=== PATIENT | male | born 1945 | race Caucasian/White ===

== ENCOUNTER → 2022-09-15 09:42 | Outpatient (CLI) | payer MEDICARE, OTHER, SELFPAY ==
[2022-09-15 10:35] LABS: Hematocrit 38.7 % (41-53); Hemoglobin 13.2 g/dL (13.5-17.5); Mean Corpuscular HGB Conc 34.2 % (30-36); Mean Corpuscular Hemoglobin 33.9 PG (26-34); Mean Corpuscular Volume 99.2 fL (80-100); Platelet Count 144 X10^3/uL (150-400); Red Blood Cell Count 3.91 X10^6/uL (4.5-5.9); Red Cell Distribution Width 15.4 % (11.6-14.8)
[2022-09-15 10:54] LABS: BUN Creatinine Ratio 10.6 (6-22); Blood Urea Nitrogen 17 mg/dL (9-20); Calcium 8.9 mg/dL (8.4-10.2); Carbon Dioxide 26 mmol/L (22-32); Chloride 106 mmol/L (98-107); Estimated Glomerular Filt Rate 44 mL/min (>60); Glucose 96 mg/dL (80-110); HEMOLYSIS < 15 (0-50); Potassium 4.5 mmol/L (3.4-5.1); Sodium 137 mmol/L (137-145)
[2022-09-15 13:43] LABS: Prostate Specific Antigen < 0.064 ng/mL (0.10-4.00)
== END ==
PROVIDERS: PCP Pediatrics; Referring Provider Urology; Visit Provider Urology
DX: C61 Malignant neoplasm of prostate (principal); D47.2 Monoclonal gammopathy; N99.89 Other postprocedural complications and disorders of genitourinary system; N39.3 Stress incontinence (female) (male); Z85.528 Personal history of other malignant neoplasm of kidney
CPT/HCPCS: 36415; 51798; 80048; 81002; 84153; 85027; 99214

== ENCOUNTER → 2022-09-25 06:34 | Outpatient (CLI) | payer MEDICARE, OTHER, SELFPAY ==
--- NOTE | 2022-09-25 06:35 | DI.ECHO.S_ITS ---
[facility] +---------+ : : [address] : : : : [id number] : : : : Phone: [phone]---------+ Echocardiogram Report + + :Name: MARKUS SAUCEDO Study Date: 09/25/2022 Height: 72 in : :[facility] ReadingLocation: Weight: 215 lb : : Gender: Male BSA: 2.2 m2 : :: 1945 Age: 77 yrs BP: 136/79 mmHg: :Reason For Study: FATIGUE, MURMUR : :Ordering Physician: CARLOS, : :PJ Dawson MD Performed By: Nancy Navarro : :Referring: PJ GONZALEZ MD : + + Interpretation Summary The patient was in sinus bradycardia with heart rates between 40-48 bpm during the exam. Normal left ventricle size with ejection fraction 60-65%. Moderate aortic stenosis. The peak aortic velocity is 3.06 m/sec. Mild aortic regurgitation. Mild to moderate mitral annular calcification. Mild tricuspid regurgitation. The right ventricular systolic pressure is estimated to be at least 41 mmHg based on an estimated right atrial pressure of 3 mm Hg. Procedure: A two-dimensional transthoracic echocardiogram with color flow and Doppler was performed. The study quality was technically adequate. There is no prior echocardiogram noted for this patient. The patient was in sinus bradycardia with heart rates between 40-48 bpm during the exam. Left Ventricle: The left ventricle is normal in size and wall thickness. The ejection fraction is estimated to be 60-65%. There are no focal wall motion abnormalities. Right Ventricle: The right ventricle is normal in size and function. Atria: Borderline left atrial enlargement. Right atrial size is normal. There is no Doppler evidence for an interatrial shunt. Mitral Valve: There is mild to moderate mitral annular calcification. The mitral valve leaflets appear mildly thickened, but open well. There is trace mitral regurgitation. Aortic Valve: The aortic valve is moderately calcified. There is moderate aortic stenosis. The peak aortic velocity is 3.06 m/sec. The aortic valve mean gradient is 21 mmHg. The calculated aortic valve area is 0.9 cm2. There is mild aortic regurgitation. Tricuspid Valve: The tricuspid valve is normal in structure and function. There is mild tricuspid regurgitation. The right ventricular systolic pressure is estimated to be at least 41 mmHg based on an estimated right atrial pressure of 3 mm Hg. Pulmonic Valve: The pulmonic valve leaflets are thin and pliable; valve motion is normal. There is trace pulmonic regurgitation. Great Vessels: The aortic root is normal size. The dimensions of the ascending aorta are normal. The IVC is of normal diameter and collapses greater than 50% with a sniff. This suggests a low right atrial pressure of 3 mm Hg. Pericardium/ Pleura There is no pericardial effusion. There is no pleural effusion. MMode/2D Measurements & Calculations LVIDd: 5.7 cm LVOT diam: 2.1 cm LVIDs: 3.8 cm Ao root diam: 3.3 cm FS: 32.9 % asc Aorta Diam: 3.3 cm EPSS: 0.89 cm Ao Arch Diam (Prox Trans): 3.1 cm IVSd: 0.85 cm LVPWd: 0.89 cm LV torre. diameter/BSA (cm/m^2): 2.6 LV sys. diameter/BSA (cm/m^2): 1.7 LA A2 area: 22.6 cm2 RA long axis: 6.0 cm LA A4 area: 27.8 cm2 RA area: 21.7 cm2 LA length (vol): 7.2 cm RA vol: 66.7 ml LA vol: 73.6 ml RA : 30.4 ml/m2 LA vol index: 33.5 ml/m2 IVC diam: 1.4 cm RVD1 (basal): 4.6 cm RVD2 (mid): 3.1 cm TAPSE: 2.0 cm Doppler Measurements & Calculations Ao V2 max: 306.6 cm/sec LVOT Max Amado: 82.2 cm/sec Ao V2 mean: 201.1 cm/sec LV V1 max P.7 mmHg Ao max P.7 mmHg LV V1 VTI: 21.0 cm Ao mean P.8 mmHg GERTRUDIS(I,D): 0.99 cm2 Ao V2 VTI: 71.3 cm GERTRUDIS(V,D): 0.90 cm2 sev ratio: 0.30 GERTRUDIS indexed to BSA (cm^2/m^2): 0.45 MV E max amado: 45.7 cm/sec TR max amado: 309.0 cm/sec MV A max amado: 32.6 cm/sec TR max P.2 mmHg MV E/A: 1.4 PA V2 max: 92.7 cm/sec Med Peak E' Amado: 8.9 cm/sec PA V2 mean: 62.2 cm/sec E/E' med: 5.1 PA mean P.7 mmHg Lat Peak E' Amado: 8.7 cm/sec PA pr(Accel): 41.3 mmHg E/E' lat: 5.2 E/e' average: 5.2 MV dec time: 0.24 sec SV(LVOT): 70.2 ml Electronically signed by: Bhavesh Ramos on Reading Physician:09/25/2022 09:22 AM
--- NOTE | 2022-09-25 06:35 | DI.CT.S_ITS ---
PROCEDURE: CT ABDOMEN PELVIS WO/W CON INDICATIONS: History of prostate cancer and ureteral fistula TECHNIQUE: After the administration of oral contrast, 5 mm thick sections acquired from the diaphragms to the iliac crests. After the administration of intravenous contrast, 5 mm thick sections acquired from the diaphragms to the symphysis. 5 mm thick coronal and sagittal reformats were acquired. For radiation dose reduction, the following was used: automated exposure control, adjustment of mA and/or kV according to patient size. COMPARISON: None. FINDINGS: Image quality: Good Lower chest: Scattered scarring and atelectasis. More nodular areas are present, for example in the right periphery (4/14), and lingula (4/20). Solid organs: Cholelithiasis. Irregular liver contour. No pathologic dilation of the biliary tree or pancreatic duct. Splenic granulomas. No adrenal nodules. No hydronephrosis bilaterally. Right renal scarring, particularly with a focal area in the posterior kidney with calcifications and central fat attenuation. Left parapelvic cysts are present. No solid renal mass is identified. No definite ureter filling defect. Vessels and lymph nodes: Main portal vein is patent. No abdominal aortic aneurysm or pathologic lymph nodes by size criteria. Suspected portal venous varices are present. There are prominent upper abdominal lymph nodes, commonly seen as a reactive process to chronic liver disease. Bowel and peritoneum: No pathologic ascites or bowel obstruction. Body wall: Tiny fat containing umbilical hernia. Pelvis: Suspected small right inguinal hernia with fluid. Bladder is under distended. Prostatectomy changes. Bones: Degenerative changes, no acute or suspicious finding rib deformities do not appear acute. IMPRESSION: No solid renal mass is identified. Scarred appearance of the right kidney, particularly in a focal area in the posterior region with adjacent calcifications and suspected fat necrosis. Consider follow-up CT in 6-12 months to ensure stability. Lower tract disease could be better evaluated with cystoscopy if indicated. Post prostatectomy changes, consider correlation with PSA surveillance. Irregular liver contour, suggestive of cirrhosis. Recommend HCC screening imaging. Cholelithiasis. Other findings as above. Dictated by: Nemesio Ruff M.D. on 09/25/2022 at 10:32 Approved by: Nemesio Ruff M.D. on 09/25/2022 at 10:39
== END ==
PROVIDERS: PCP Pediatrics; Referring Provider Urology; Visit Provider Urology
DX: C61 Malignant neoplasm of prostate (principal); I08.3 Combined rheumatic disorders of mitral, aortic and tricuspid valves; N28.1 Cyst of kidney, acquired; N28.89 Other specified disorders of kidney and ureter; R53.83 Other fatigue; R01.1 Cardiac murmur, unspecified; K80.20 Calculus of gallbladder without cholecystitis without obstruction; Z85.528 Personal history of other malignant neoplasm of kidney
CPT/HCPCS: 74178; 93306; Q9967

== ENCOUNTER → 2022-11-30 16:12 | Outpatient (CLI) | payer MEDICARE, OTHER, SELFPAY ==
--- NOTE | 2022-11-30 16:16 | DI.MRI.S_ITS ---
PROCEDURE: MR LUMBAR SPINE WO CON INDICATIONS: low back pain with radiculopathy TECHNIQUE: Noncontrast sagittal T1 spin echo and T2 fast echo, sagittal STIR, and T2 fast spin echo through the lumbar spine. In cases with scoliosis, additional coronal T2 fast spin echo may be performed. COMPARISON: None. FINDINGS: Image quality: Excellent. Alignment and Curvature: . Straightening of the normal lumbar lordosis. Bone Marrow: Marrow is of normal overall signal. No acute vertebral body compression fractures. Spinal Cord: Conus medullaris terminates at the L1-L2 level. Visualized cord demonstrates normal signal and size. Paraspinous Soft Tissues: No paravertebral masses. Atrophic appearance of the right kidney. T12-L1: No central canal or neural foraminal stenosis. L1-L2: Disc desiccation and height loss with small posterior disc bulge. Facet arthropathy. No central canal or neural foraminal stenosis. L2-L3: Disc desiccation and height loss. Facet arthropathy. Narrowing of the right lateral recess with abutment of the descending right L3 nerve root. Mild central canal stenosis. No neural foraminal stenosis L3-L4: Disc desiccation and height loss with small posterior disc bulge. Facet arthropathy. Narrowing of the right lateral recess with abutment versus impingement of the descending right L4 nerve root. Mild central canal stenosis. Mild bilateral neural foraminal stenosis. L4-L5: Disc desiccation and height loss with small posterior disc bulge. Facet arthropathy. No central canal or right neural foraminal stenosis. Moderate left neural foraminal stenosis. L5-S1: Disc desiccation and small posterior disc bulge. Facet arthropathy. No central canal stenosis. Moderate left and mild right neural foraminal stenosis. IMPRESSION: 1. Multilevel degenerative changes of the lumbar spine as described above. 2. There is narrowing of the right lateral recess at L3-L4 with abutment versus impingement of the descending right L4 nerve root. 3. Mild multilevel central canal stenosis as described above. 4. There is multilevel mild and moderate neural foraminal stenosis. Dictated by: Cruzito Gómez M.D. on 11/30/2022 at 16:59 Approved by: Cruzito Gómez M.D. on 11/30/2022 at 17:02
== END ==
PROVIDERS: Family Provider Pediatrics; PCP Family Medicine; Referring Provider Family Medicine; Visit Provider Family Medicine
DX: M54.16 Radiculopathy, lumbar region (principal); M48.061 Spinal stenosis, lumbar region without neurogenic claudication
CPT/HCPCS: 72148

== ENCOUNTER 2022-12-12 14:00 | Outpatient (RCR) | payer MEDICARE, OTHER, SELFPAY ==
--- NOTE | 2022-11-15 12:30 | PT.OPPOC ---
Physical, Occupational & Speech Therapy At [facility] Current Diagnoses Malignant neoplasm of prostate (11/15/22) Stress incontinence (female) (male) (11/15/22) Pelvic muscle wasting (11/15/22) Other postprocedural complications and disorders of genitourinary system (11/15/22) Visit Care Team Role Provider Type Dani Ellsworth MD Family Provider Physician Primary Care Provider Specialty: Internal Medicine Pediatrics Address: [address] [place] [address], [id number] Email: [email or web address] Provider Physician Referring Provider Specialty: Urology Address: [address] [place] [address], [address] Email: [email or web address] Plan Of Care PT-OP-T Assessment and Plan Start: 11/15/22 08:00 Freq: Status: Active Protocol: Document 11/15/22 09:15 [facility] (Rec: 11/15/22 10:14 [facility] [id number]) Physical Therapy Assessment Rehab Potential Rehabilitation Potential Good Evaluation Complexity Number of Personal Factors/Comorbidities 0 Number of Body Systems Impaired 1-2 Clinical Presentation at Evaluation Stable Impairments Impairments Activity Tolerance,Functional Activities,Functional Mobility ,Strength Other Impairments urinary urgency and stress incontinence Goals 3 Impairment Urinary stress incontinence with activities working overhead and reaching [facility] Goal (LTG) Mino reports overall reduction of stress incontinence with working overhead and reaching. He is down to 1 depend or less per day LTG Duration 12 weeks 2 Impairment Decreased pelvic floor endurance, Mino is only able to hold a pelvic floor contraction 2-3 seconds in supine Short Term Goal (STG) Mino is able to sustain a pelvic floor contraction x 10 seconds in supine STG Duration 4 weeks Assistant Auditor Goal (LTG) Mino is able to sustain a pelvic floor conraction in standing for 5-10 seconds LTG Duration 12 weeks 1 Impairment Mino lacks a home exercise program for pelvic floor endurance training and strengthening Short Term Goal (STG) Mino is instructed in a HEP for pelvic floor endurance training and strengthening STG Duration 4 weeks Assessment Summary Assessment Mino is a 77 year old male referred to PT for pelvic floor strengthening. He has a history of renal cell carcinoma after partial nephrectomy right side and history of prostate cancer with radical prostatectomy, and smoldering multiply myeloma. Mino reports he has tried Kegel exercises but with questions regarding his exercises he did he was only aware of doing quick contractions so hasn't done any pelvic floor endurance holds. His symptoms of leakage are with activities such as working in his yard and reaching and lifting overhead. He also reports some leakage after drying off from the shower. He notes once his depends is wet the wetness with aggravate him and he will note additional leakage. We discussed this and I advised him to change his depends as soon as he can after it is wet. He is waking 3 times at night to void and most of the time can make it to the toilet at night but occasionally will leak on the way to the toilet. EMG biofeedback for the pelvic floor was initiated today for Mino. His resting tone is elevated at 10 uv and he was educated on relaxed awareness of his pelvic floor at rest and cues to fully relax his pelvic floor with voiding. He demonstrates a good contraction intensity of the pelvic floor but lacks the ability to sustain a contraction more than a few seconds. He was given a HEP today to start working on his pelvic floor endurance and he tolerated this well. Mino was also instructed in urge deference technique to do prior to getting out of the shower to ep with urine control. Mino is a good candidate for Pelvic floor PT Physical Therapy Plan Frequency and Duration Frequency of Treatment 1x/Week Duration of treatment (weeks) 8 Plan of Care Start Date 11/15/22 Plan of Care End Date 01/10/23 Therapeutic Interventions Therapeutic Interventions Home Exercise Program,Manual Therapy,Neuromuscular Re- education,Patient/Caregiver Education,Self-Care/Home Management,Therapeutic Exercises Next Visit Focus/Plan Next Note Type Treatment Note Next Visit Plan EMG biofeedback for pelvic floor endurance training, hip lateral rotation strengthening to support the pelvic floor, review urge deference technique given at today's appt. Plan of Care Dates Plan of Care Start Date 11/15/22 Plan of Care End Date 01/10/23 Electronically Signed by: Mary Buenrostro, PT 11/16/22 [id number] If you are in agreement with this Plan of Care, please return a signed and dated copy. I have reviewed this Plan of Care and certify that the skilled therapy services above are required to meet the patient?s needs. Physician Signature Date Printed Name and Credentials Clinical Instructor Signature Printed Name and Credentials
--- NOTE | 2022-11-15 12:30 | PT.OIE ---
Current Diagnoses Malignant neoplasm of prostate (11/15/22) Stress incontinence (female) (male) (11/15/22) Pelvic muscle wasting (11/15/22) Other postprocedural complications and disorders of genitourinary system (11/15/22) Past Medical History (Last Updated 10/26/22 @ 09:50 by Brien Marcos MD) Dyspnea on exertion Elevated serum creatinine Gout (~2017) Hearing loss (~1960) Heart murmur History of elevated PSA (~2009) History of kidney cancer Hx of nephrolithotomy with removal of calculi Hypertension Hyperthyroidism Hypothyroidism (acquired) Prostate cancer (~2019) Sleep apnea (~1999) Smoldering multiple myeloma (~2021) Stress incontinence 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 Thyroid cancer (~1999) Wears glasses Past Surgical History (Last Reviewed 09/15/22 @ 10:50 by Brien Marcos MD) Anesthesia History of partial knee replacement (~2014) History of prostatectomy (~2019) History of shoulder surgery (~1977) Hx of hernia repair Visit Care Team Role Provider Type Dani Ellsworth MD Family Provider Physician Primary Care Provider Specialty: Internal Medicine Pediatrics Address: [address] [place] [address], [address] Email: [email or web address] Provider Physician Referring Provider Specialty: Urology Address: [address] [place] [address], [address] Email: [email or web address] Physical Therapy Initial Evaluation PT-OP-A Visit Information Start: 11/15/22 08:00 Freq: Status: Active Protocol: Document 11/15/22 09:15 [facility] (Rec: 11/15/22 10:14 [facility] [id number]) Out-Patient Physical Therapy Visit Information Visit Information Visit Type Initial Evaluation Visit Start Time 09:15 Visit Stop Time 10:00 Total Visit Minutes 45 Visit Number 1 Evaluation Information Evaluation Date 11/15/22 PT-OP-B Current Condition Start: 11/15/22 08:00 Freq: Status: Active Protocol: Document 11/15/22 09:15 [facility] (Rec: 11/15/22 10:14 [facility] [id number]) Current Condition History of Current Condition Onset Date 2019 Current Complaints pt reports symptoms of urinary leakage with strenous work or sneezing, History of Current Condition 77 year old male with history of renal cell carcinnom and prostate cancer with prostatectomy in 2020. He presents with urinary incontinence and is seen today for pelvic floor strengthening. He notes he leaks with reaching and lifting overhead. He can go 12 hours with one depends but with increased activity he will leak more. He notes he has lost some sensation of when he is voiding but he does get a urge to go and can sense that his bladder is full . Night time he will wake up 2-3 times per night to empty his bladder and he will void and will be back to bed. He notes that if he dries his penis after a shower vigorously he will leak or if he gets wet in his depends he will leak. His goals include decreasing overall symptoms of leakage. 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 Treatment Goals Patient/Caregiver Goals treatment goals include reducing urinary leakage Prior Functional Status Baseline Function- ADL's Independent Baseline Function- Mobility Independent Current Functional Impairments (Reported) Functional Limitations- ADL's pt is limited with ADL's that require reaching and lifting over head due to leakage PT-OP-C Subjective Start: 11/15/22 08:00 Freq: Status: Active Protocol: Document 11/15/22 09:30 [facility] (Rec: 11/16/22 16:33 [facility] [id number]) Patient Questionnaires Pelvic Pain and Urgency/Frequency Patient Symptom Scale Pelvic Pain Score 7 PT-OP-I Pelvic Floor Start: 11/15/22 08:00 Freq: Status: Active Protocol: Document 11/15/22 09:15 [facility] (Rec: 11/15/22 10:14 [facility] [id number]) Pelvic Floor Assessment Urine Pelvic Floor Surgery Yes: prostatectomy in 2019 Urinary Symptoms Dribbling After Urination, Incomplete Emptying Other Urinary Symptoms urinary stress incontinence, urgency with drying off with a towel after showering Leakage Size Large Leakage Cause Cough,Exercise,Lifting,Sneeze, Urge Leaks Per Day 2-3 Voiding Frequency 5 times per day Nocturia 3 Pads Used In 24 Hours 2-3 Urine Pad Type Depends SEMG (uV) Baseline 10 10 Second Contraction 26 Recruitment Pattern Fair Relaxation Poor/Slow Holding Poor/Slow Stability of Hold Poor/Slow SEMG Stability of Rest Poor/Slow Comments Pelvic Floor Comments average is a 26 and max is 55 elevated resting tone at 10 uv initially and this decreased to 8 after pelvic floor contractions. pt lacks endurance to sustain a pelvic floor contraction more than a few seconds PT-OP-Q Treatments Start: 11/15/22 08:00 Freq: Status: Active Protocol: Document 11/15/22 09:30 [facility] (Rec: 11/16/22 16:33 [facility] [id number]) Therapeutic Exercises Supine Exercises supine ball squeeze with pelvic floor contraction Reps/Minutes x 10 reps pelvic floor long holds Reps/Minutes working on holding 10 seconds and relaxing 10 seconds Comments with emg biofeedback Self-Care/Home Management Treatment Activities Self-Care/Home Management Activities pt was educated on urge deference technique to reduce leakage after getting out of the shower PT-OP-T Assessment and Plan Start: 11/15/22 08:00 Freq: Status: Active Protocol: Document 11/15/22 09:15 [facility] (Rec: 11/15/22 10:14 [facility] [id number]) Physical Therapy Assessment Rehab Potential Rehabilitation Potential Good Evaluation Complexity Number of Personal Factors/Comorbidities 0 Number of Body Systems Impaired 1-2 Clinical Presentation at Evaluation Stable Impairments Impairments Activity Tolerance,Functional Activities,Functional Mobility ,Strength Other Impairments urinary urgency and stress incontinence Goals 3 Impairment Urinary stress incontinence with activities working overhead and reaching [facility] Goal (LTG) Mino reports overall reduction of stress incontinence with working overhead and reaching. He is down to 1 depend or less per day LTG Duration 12 weeks 2 Impairment Decreased pelvic floor endurance, Mino is only able to hold a pelvic floor contraction 2-3 seconds in supine Short Term Goal (STG) Mino is able to sustain a pelvic floor contraction x 10 seconds in supine STG Duration 4 weeks [facility] Goal (LTG) Mino is able to sustain a pelvic floor conraction in standing for 5-10 seconds LTG Duration 12 weeks 1 Impairment Mino lacks a home exercise program for pelvic floor endurance training and strengthening Short Term Goal (STG) Mino is instructed in a HEP for pelvic floor endurance training and strengthening STG Duration 4 weeks Assessment Summary Assessment Mino is a 77 year old male referred to PT for pelvic floor strengthening. He has a history of renal cell carcinoma after partial nephrectomy right side and history of prostate cancer with radical prostatectomy, and smoldering multiply myeloma. Mino reports he has tried Kegel exercises but with questions regarding his exercises he did he was only aware of doing quick contractions so hasn't done any pelvic floor endurance holds. His symptoms of leakage are with activities such as working in his yard and reaching and lifting overhead. He also reports some leakage after drying off from the shower. He notes once his depends is wet the wettness with aggravate him and he will note additional leakage. We discussed this and I advised him to change his depends as soon as he can after it is wet. He is waking 3 times at night to void and most of the time can make it to the toilet at night but occasionally will leak on the way to the toilet. EMG biofeedback for the pelvic floor was initiated today for Mino. His resting tone is elevated at 10 uv and he was educated on relaxed awareness of his pelvic floor at rest and cues to fully relax his pelvic floor with voiding. He demonstrates a good contraction intensity of the pelvic floor but lacks the ability to sustain a contraction more than a few seconds. He was given a HEP today to start working on his pelvic floor endurance and he tolerated this well. Mino was also instructed in urge deference technique to do prior to getting out of the shower to [facility] with urine control. Mino is a good candidate for Pelvic floor PT Physical Therapy Plan Frequency and Duration Frequency of Treatment 1x/Week Duration of treatment (weeks) 8 Plan of Care Start Date 11/15/22 Plan of Care End Date 01/10/23 Therapeutic Interventions Therapeutic Interventions Home Exercise Program,Manual Therapy,Neuromuscular Re- education,Patient/Caregiver Education,Self-Care/Home Management,Therapeutic Exercises Next Visit Focus/Plan Next Note Type Treatment Note Next Visit Plan EMG biofeedback for pelvic floor endurance training, hip lateral rotation strengthening to support the pelvic floor, review urge deference technique given at today's appt.
--- NOTE | 2022-11-22 09:58 | PT.OTN ---
Current Diagnoses Malignant neoplasm of prostate (11/22/22) Stress incontinence (female) (male) (11/22/22) Pelvic muscle wasting (11/22/22) Other postprocedural complications and disorders of genitourinary system (11/22/22) Physical Therapy Treatment Note PT-OP-A Visit Information Start: 11/15/22 08:00 Freq: Status: Active Protocol: Document 11/22/22 08:04 [facility] (Rec: 11/22/22 08:17 [facility] [id number]) Out-Patient Physical Therapy Visit Information Visit Information Visit Type Treatment Note Visit Start Time 08:04 Visit Stop Time 08:45 Total Visit Minutes 41 Visit Number 2 PT-OP-B Current Condition Start: 11/15/22 08:00 Freq: Status: Active Protocol: Document 11/15/22 09:15 [facility] (Rec: 11/15/22 10:14 [facility] [id number]) Current Condition History of Current Condition Onset Date 2019 Current Complaints pt reports symptoms of urinary leakage with strenous work or sneezing, History of Current Condition 77 year old male with history of renal cell carcinnom and prostate cancer with prostatectomy in 2019. He presents with urinary incontinence and is seen today for pelvic floor strengthening. He notes he leaks with reaching and lifting overhead. He can go 12 hours with one depends but with increased activity he will leak more. He notes he has lost some sensation of when he is voiding but he does get a urge to go and can sense that his bladder is full . Night time he will wake up 2-3 times per night to empty his bladder and he will void and will be back to bed. He notes that if he dries his penis after a shower vigorously he will leak or if he gets wet in his depends he will leak. His goals include decreasing overall symptoms of leakage. 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 Treatment Goals Patient/Caregiver Goals treatment goals include reducing urinary leakage Prior Functional Status Baseline Function- ADL's Independent Baseline Function- Mobility Independent Current Functional Impairments (Reported) Functional Limitations- ADL's pt is limited with ADL's that require reaching and lifting over head due to leakage PT-OP-C Subjective Start: 11/15/22 08:00 Freq: Status: Active Protocol: Document 11/22/22 08:04 [facility] (Rec: 11/22/22 08:17 [facility] [id number]) OP-PT Subjective Patient Comments Patient Comments Mino reports he has been doing his exercises and working on longer holding time . He notes he didn't seem to wet through his undergarment as fast. Because the sensitivity is gone he isn't sure when he is leaking all the time. Mino notes he went all night with the same depends last night. PT-OP-I Pelvic Floor Start: 11/15/22 08:00 Freq: Status: Active Protocol: Document 11/22/22 08:17 [facility] (Rec: 11/22/22 08:25 [facility] [id number]) Pelvic Floor Assessment Comments Pelvic Floor Comments average 14 and mx is 35 PT-OP-Q Treatments Start: 11/15/22 08:00 Freq: Status: Active Protocol: Document 11/22/22 08:04 [facility] (Rec: 11/22/22 08:17 [facility] [id number]) Therapeutic Exercises Supine Exercises hip ER with theraband Reps/Minutes 2 x 10 reps quick flicks Reps/Minutes x 10 reps supine ball squeeze with pelvic floor contraction Reps/Minutes x 10 reps Comments 5.0 average and 12.9 max pelvic floor long holds Supine Exercise Name 5.4 average as resting tone and went to a 3 with breathing Comments 14 average with 35 max able to relax to baseline after 10 reps Self-Care/Home Management Treatment Activities Self-Care/Home Management Activities review of HEP and review of urge deference technique PT-OP-T Assessment and Plan Start: 11/15/22 08:00 Freq: Status: Active Protocol: Document 11/22/22 09:55 [facility] (Rec: 11/22/22 09:57 [facility] [id number]) Physical Therapy Assessment Assessment Summary Assessment Mino needed cues today to avoid straining with pelvic floor contractions. We worked on pelvic floor contraction with the exhale. I added in hip ER for him today as well. Physical Therapy Plan Frequency and Duration Frequency of Treatment 1x/Week Duration of treatment (weeks) 8 Plan of Care Start Date 11/15/22 Plan of Care End Date 01/10/23 Therapeutic Interventions Therapeutic Interventions Home Exercise Program,Manual Therapy,Neuromuscular Re- education,Patient/Caregiver Education,Self-Care/Home Management,Therapeutic Exercises Next Visit Focus/Plan Next Note Type Treatment Note Next Visit Plan Continue with endurance training for EMG biofeedback review urge deference technique and bladder retraining, review hip ER exercise and work on sit- stand with pelvic floor contractions.
--- NOTE | 2022-11-29 12:18 | PT.OTN ---
Current Diagnoses Malignant neoplasm of prostate (11/29/22) Stress incontinence (female) (male) (11/29/22) Pelvic muscle wasting (11/29/22) Other postprocedural complications and disorders of genitourinary system (11/29/22) Physical Therapy Treatment Note PT-OP-A Visit Information Start: 11/15/22 08:00 Freq: Status: Active Protocol: Document 11/29/22 11:22 [facility] (Rec: 11/29/22 12:00 [facility] [id number]) Out-Patient Physical Therapy Visit Information Visit Information Visit Type Treatment Note Visit Start Time 11:20 Visit Stop Time 12:00 Total Visit Minutes 40 Visit Number 3 PT-OP-B Current Condition Start: 11/15/22 08:00 Freq: Status: Active Protocol: Document 11/15/22 09:15 [facility] (Rec: 11/15/22 10:14 [facility] [id number]) Current Condition History of Current Condition Onset Date 2019 Current Complaints pt reports symptoms of urinary leakage with strenous work or sneezing, History of Current Condition 77 year old male with history of renal cell carcinnom and prostate cancer with prostatectomy in 2019. He presents with urinary incontinence and is seen today for pelvic floor strengthening. He notes he leaks with reaching and lifting overhead. He can go 12 hours with one depends but with increased activity he will leak more. He notes he has lost some sensation of when he is voiding but he does get a urge to go and can sense that his bladder is full . Night time he will wake up 2-3 times per night to empty his bladder and he will void and will be back to bed. He notes that if he dries his penis after a shower vigorously he will leak or if he gets wet in his depends he will leak. His goals include decreasing overall symptoms of leakage. 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 Treatment Goals Patient/Caregiver Goals treatment goals include reducing urinary leakage Prior Functional Status Baseline Function- ADL's Independent Baseline Function- Mobility Independent Current Functional Impairments (Reported) Functional Limitations- ADL's pt is limited with ADL's that require reaching and lifting over head due to leakage PT-OP-C Subjective Start: 11/15/22 08:00 Freq: Status: Active Protocol: Document 11/29/22 11:22 [facility] (Rec: 11/29/22 12:00 [facility] [id number]) OP-PT Subjective Patient Comments Patient Comments pt saw his new family physician and was told to stop doing the heavy lifting, Mino notes he was sick for a few days this week but he can tell a difference. He is not soiling his depends as much and as often. He has been using the urge technque and this is helping delay the need to void. Patient Reported Progress Improving PT-OP-I Pelvic Floor Start: 11/15/22 08:00 Freq: Status: Active Protocol: Document 11/22/22 08:04 [facility] (Rec: 11/22/22 08:25 [facility] [id number]) Pelvic Floor Assessment Comments Pelvic Floor Comments average 14 and mx is 35 PT-OP-Q Treatments Start: 11/15/22 08:00 Freq: Status: Active Protocol: Document 11/29/22 11:22 [facility] (Rec: 11/29/22 12:00 [facility] [id number]) Therapeutic Exercises Supine Exercises templates for eccentric control and coordination Reps/Minutes 8 min hip ER with theraband Reps/Minutes 2 x 10 reps quick flicks Reps/Minutes x 15 supine ball squeeze with pelvic floor contraction Supine Exercise Name after the ball squeeze resting tone went down to 1.6 Comments 23.2 and 27 uv max pelvic floor long holds Supine Exercise Name 10.0 uv average rest to start Comments 25.2 average max of 43 uv PT-OP-T Assessment and Plan Start: 11/15/22 08:00 Freq: Status: Active Protocol: Document 11/29/22 11:22 [facility] (Rec: 11/29/22 12:00 [facility] [id number]) Physical Therapy Assessment Goals 3 Impairment Urinary stress incontinence with activities working overhead and reaching [employer] Goal (LTG) Mino reports overall reduction of stress incontinence with working overhead and reaching. He is down to 1 depend or less per day LTG Duration 12 weeks 2 Impairment Decreased pelvic floor endurance, Mino is only able to hold a pelvic floor contraction 2-3 seconds in supine Short Term Goal (STG) Mino is able to sustain a pelvic floor contraction x 10 seconds in supine STG Duration 4 weeks [employer] Goal (LTG) Mino is able to sustain a pelvic floor conraction in standing for 5-10 seconds LTG Duration 12 weeks 1 Impairment Mino lacks a home exercise program for pelvic floor endurance training and strengthening Short Term Goal (STG) Mino is instructed in a HEP for pelvic floor endurance training and strengthening STG Duration 4 weeks Assessment Summary Assessment Mino showed a elevated resting tone initially today however after his adductor squeeze exercise his resting tone dropped to baseline. He is showing increased pelvic floor strength and endurance and is no longer straining with pelvic floor exercises. Physical Therapy Plan Frequency and Duration Frequency of Treatment 1x/Week Duration of treatment (weeks) 8 Plan of Care Start Date 11/15/22 Plan of Care End Date 01/10/23 Therapeutic Interventions Therapeutic Interventions Home Exercise Program,Manual Therapy,Neuromuscular Re- education,Patient/Caregiver Education,Self-Care/Home Management,Therapeutic Exercises Next Visit Focus/Plan Next Note Type Treatment Note Next Visit Plan review stretches for the low back, continue with endurance training for the pelvic floor, work on sit-stand with pelvic floor contractions next visit
--- NOTE | 2022-12-12 16:08 | PT.OTN ---
Current Diagnoses Malignant neoplasm of prostate (12/12/22) Stress incontinence (female) (male) (12/12/22) Other postprocedural complications and disorders of genitourinary system (12/12/22) Physical Therapy Treatment Note PT-OP-A Visit Information Start: 11/15/22 08:00 Freq: Status: Active Protocol: Document 12/12/22 14:10 [facility] (Rec: 12/12/22 15:01 [facility] [id number]) Out-Patient Physical Therapy Visit Information Visit Information Visit Type Treatment Note Visit Start Time 14:05 Visit Stop Time 14:45 Total Visit Minutes 40 Visit Number 4 PT-OP-B Current Condition Start: 11/15/22 08:00 Freq: Status: Active Protocol: Document 11/15/22 09:15 [facility] (Rec: 11/15/22 10:14 [facility] [id number]) Current Condition History of Current Condition Onset Date 2019 Current Complaints pt reports symptoms of urinary leakage with strenous work or sneezing, History of Current Condition 77 year old male with history of renal cell carcinnom and prostate cancer with prostatectomy in 2019. He presents with urinary incontinence and is seen today for pelvic floor strengthening. He notes he leaks with reaching and lifting overhead. He can go 12 hours with one depends but with increased activity he will leak more. He notes he has lost some sensation of when he is voiding but he does get a urge to go and can sense that his bladder is full . Night time he will wake up 2-3 times per night to empty his bladder and he will void and will be back to bed. He notes that if he dries his penis after a shower vigorously he will leak or if he gets wet in his depends he will leak. His goals include decreasing overall symptoms of leakage. 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 Treatment Goals Patient/Caregiver Goals treatment goals include reducing urinary leakage Prior Functional Status Baseline Function- ADL's Independent Baseline Function- Mobility Independent Current Functional Impairments (Reported) Functional Limitations- ADL's pt is limited with ADL's that require reaching and lifting over head due to leakage PT-OP-C Subjective Start: 11/15/22 08:00 Freq: Status: Active Protocol: Document 12/12/22 14:10 [facility] (Rec: 12/12/22 15:01 [facility] [id number]) OP-PT Subjective Patient Comments Patient Comments Lorne has been dealing with back pain and leg pain due to nerve intrapment. He did just have a MRI. HE notes it difficult to stand after sitting for periods over night he is dry all night but with physical activity and especially over head work he had leakage. Lorne also notes he is finding that he is dry in the evenings now when heis relaxing PT-OP-I Pelvic Floor Start: 11/15/22 08:00 Freq: Status: Active Protocol: Document 11/22/22 08:04 [facility] (Rec: 11/22/22 08:25 [facility] [id number]) Pelvic Floor Assessment Comments Pelvic Floor Comments average 14 and mx is 35 PT-OP-Q Treatments Start: 11/15/22 08:00 Freq: Status: Active Protocol: Document 12/12/22 14:10 [facility] (Rec: 12/12/22 15:01 [facility] [id number]) Therapeutic Exercises Supine Exercises templates for eccentric control and coordination Reps/Minutes 8 min hip ER with theraband Reps/Minutes 2 x 10 reps quick flicks Reps/Minutes x 15 Comments 43 uv max pelvic floor long holds Supine Exercise Name 10.0 uv average rest to start and then he went as low asd a 3.5 uv Comments 24.7 average and 46 uv max PT-OP-T Assessment and Plan Start: 11/15/22 08:00 Freq: Status: Active Protocol: Document 12/12/22 14:10 [facility] (Rec: 12/12/22 15:01 [facility] [id number]) Physical Therapy Assessment Assessment Summary Assessment Lorne is showing improvements with his strength and some improvment with decreased leakage. 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 I have encouraged him to start working in upright positions with pelvic alessia strengthening Physical Therapy Plan Frequency and Duration Frequency of Treatment 1x/Week Duration of treatment (weeks) 8 Plan of Care Start Date 11/15/22 Plan of Care End Date 01/10/23 Therapeutic Interventions Therapeutic Interventions Home Exercise Program,Manual Therapy,Neuromuscular Re- education,Patient/Caregiver Education,Self-Care/Home Management,Therapeutic Exercises
--- NOTE | 2023-02-20 08:35 | PT.OPDS ---
Current Diagnoses Malignant neoplasm of prostate (12/12/22) Stress incontinence (female) (male) (12/12/22) Other postprocedural complications and disorders of genitourinary system (12/12/22) Visit Care Team Role Provider Type Dani Ellsworth MD Family Provider Physician Primary Care Provider Specialty: Internal Medicine Pediatrics Address: [address] [place] [address], [id number] Email: [email or web address] Physician Referring Provider Specialty: Urology Address: [address] [place] [address], [id number] Email: [email or web address] Visit Number Visit Number 4 Discharge Summary PT-OP-B Current Condition Start: 11/15/22 08:00 Freq: Status: Active Protocol: Document 11/15/22 09:15 [facility] (Rec: 11/15/22 10:14 [facility] [id number]) Current Condition History of Current Condition Onset Date 2019 Current Complaints pt reports symptoms of urinary leakage with strenous work or sneezing, History of Current Condition 77 year old male with history of renal cell carcinnom and prostate cancer with prostatectomy in 2020. He presents with urinary incontinence and is seen today for pelvic floor strengthening. He notes he leaks with reaching and lifting overhead. He can go 12 hours with one depends but with increased activity he will leak more. He notes he has lost some sensation of when he is voiding but he does get a urge to go and can sense that his bladder is full . Night time he will wake up 2-3 times per night to empty his bladder and he will void and will be back to bed. He notes that if he dries his penis after a shower vigorously he will leak or if he gets wet in his depends he will leak. His goals include decreasing overall symptoms of leakage. 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 Treatment Goals Patient/Caregiver Goals treatment goals include reducing urinary leakage Prior Functional Status Baseline Function- ADL's Independent Baseline Function- Mobility Independent Current Functional Impairments (Reported) Functional Limitations- ADL's pt is limited with ADL's that require reaching and lifting over head due to leakage PT-OP-C Subjective Start: 11/15/22 08:00 Freq: Status: Active Protocol: Document 12/12/22 14:10 [facility] (Rec: 12/12/22 15:01 [facility] [id number]) OP-PT Subjective Patient Comments Patient Comments Lorne has been dealing with back pain and leg pain due to nerve intrapment. He did just have a MRI. HE notes it difficult to stand after sitting for periods over night he is dry all night but with physical activity and especially over head work he had leakage. Lorne also notes he is finding that he is dry in the evenings now when heis relaxing PT-OP-I Pelvic Floor Start: 11/15/22 08:00 Freq: Status: Active Protocol: Document 11/22/22 08:04 [facility] (Rec: 11/22/22 08:25 [facility] [id number]) Pelvic Floor Assessment Comments Pelvic Floor Comments average 14 and mx is 35 PT-OP-T Assessment and Plan Start: 11/15/22 08:00 Freq: Status: Active Protocol: Document 02/20/23 08:33 [facility] (Rec: 02/20/23 08:34 [facility] [id number]) Physical Therapy Assessment Goals 3 Impairment Urinary stress incontinence with activities working overhead and reaching [employer] Goal (LTG) Mino reports overall reduction of stress incontinence with working overhead and reaching. He is down to 1 depend or less per day LTG Duration 12 weeks 2 Impairment Decreased pelvic floor endurance, Mino is only able to hold a pelvic floor contraction 2-3 seconds in supine Short Term Goal (STG) Mino is able to sustain a pelvic floor contraction x 10 seconds in supine STG Duration 4 weeks Group Home Goal (LTG) Mino is able to sustain a pelvic floor conraction in standing for 5-10 seconds LTG Duration 12 weeks 1 Impairment Mino lacks a home exercise program for pelvic floor endurance training and strengthening Short Term Goal (STG) Mino is instructed in a HEP for pelvic floor endurance training and strengthening STG Duration 4 weeks Assessment Summary Assessment As of his last visit attended on 12/12/22 Lorne was showing improvements with his strength . He has cx his follow up visit. Since he has not been seen since 12/12/22 he is out of his plan of care and will be discharged at this time Physical Therapy Plan Discharge Physical Therapy Discharge Reasons No Longer Attending PT
== END 2023-02-23 08:32 | disposition home or self-care (01) ==
LOC: PHYS 14:00
PROVIDERS: Family Provider Pediatrics; PCP Pediatrics; Referring Provider Urology; Visit Provider Urology
DX: N99.89 Other postprocedural complications and disorders of genitourinary system (principal); N39.3 Stress incontinence (female) (male); C61 Malignant neoplasm of prostate
CPT/HCPCS: 97110; 97161; 97535

== ENCOUNTER → 2023-01-03 11:47 | Outpatient (CLI) | payer MEDICARE, OTHER, SELFPAY ==
--- NOTE | 2023-01-03 11:48 | DI.RAD.S_ITS ---
PROCEDURE: XR LUMBAR SPINE MIN 4V INDICATIONS: BACK PAIN TECHNIQUE: 5 views of the lumbar spine were acquired, including bilateral oblique views. COMPARISON: None. FINDINGS: Bones: 6 nonrib-bearing vertebrae are present. Trace retrolisthesis L2-3. Otherwise normal bone alignment with mild multilevel disc height loss.. No vertebral body compression fractures. No suspicious bony lesions. Soft tissues: Overlying bowel gas pattern is normal. No suspicious soft tissue calcifications. Moderate abdominal aortic atherosclerotic calcification. Oblique images: No pars defects. Mild L5-6 facet sclerosis. Moderate facet hypertrophy L4 through L6. IMPRESSION: Multilevel mild disc height loss and trace spondylolisthesis L2-3. Facet sclerosis in the lower lumbar spine. Dictated by: Martine Vee M.D. on 01/03/2023 at 13:34 Approved by: Martine Vee M.D. on 01/03/2023 at 13:37
== END ==
PROVIDERS: Family Provider Pediatrics; PCP Family Medicine; Referring Provider Physical Medicine & Rehabilitation; Visit Provider Physical Medicine & Rehabilitation
DX: M47.26 Other spondylosis with radiculopathy, lumbar region (principal); D47.2 Monoclonal gammopathy
CPT/HCPCS: 72110; 99214

== ENCOUNTER 2023-01-09 06:45 | Outpatient (CLI) | payer MEDICARE, OTHER, SELFPAY ==
[2023-01-09] VITALS (12 sets, daily range): BP systolic 118–185; BP diastolic 61–87; PULSE 4–49; RESP 16–22; TEMP 36.4; O2SAT 90–97
--- NOTE | 2023-01-09 | DI.RAD.S_ITS ---
PROCEDURE: PAIN L/S TRANSFORAM INJECT MERLIN COMPARISON: [facility], CR, XR LUMBAR SPINE MIN 4V, 01/03/2023, 12:07. INDICATIONS: LUMBAR RADICULOPATHY FINDINGS: Fluoroscopic spot filming was performed to verify placement of spinal needles on both sides at the L3-L4 level, as labeled on the films. Appropriate location of the needle tips was confirmed by injection of iodinated contrast. IMPRESSION: Intraprocedural examination demonstrating appropriate positions of the needles. Dictated by: Jordin Alvarez M.D. on 01/09/2023 at 13:47 Approved by: Jordin Alvarez M.D. on 01/09/2023 at 13:48
[2023-01-09] MEDS: MIDAZOLAM 2 MG/2 ML VIAL IV (08:15)
[2023-01-09] MEDS: BETAMETHASONE 30 MG/5 ML MDV 12 MG INJ (08:22)
[2023-01-09] MEDS: BUPIVACAINE 0.25% (PF) VIAL 2 ML INJ (08:22)
[2023-01-09] MEDS: DEXAMETHASONE 10 MG/ML VIAL 20 MG INJ (08:23)
[2023-01-09] MEDS: iopamidoL 15 ML VIAL 3 ML INJ (08:23)
--- NOTE | 2023-01-09 08:44 | PM.PROC.IR.1 ---
Date/Time/Diagnoses Date of procedure: 01/09/23 Time of procedure: 08:45 Pre-procedure diagnosis: 1. FORAMINAL STENOSIS WITH LE SYMPTOMS Post-procedure diagnosis: same Procedure Notes Procedure: 1. FLUOROSCOPICALLY GUIDED CONTRAST CONTROLLED TRANSFORAMINAL EPIDURAL STEROID INJECTION - BILATERAL L3/4 TFESI Indications: Mino is referred by Dr. Park for treatment of Foraminal Stenosis with bilateral LE Symptoms Physician: Ashwin Landers Total Fluoroscopy time (seconds): 17 Total sedation minutes: 20 Complications: none Procedure in detail & Post-procedure care: FINDINGS Foraminal Nerve Root Compression secondary to disc disease and facet hypertrophy DESCRIPTION OF PROCEDURE Following review of allergy and review of potential side effects and complications, including, but not necessarily limited to, infection, allergic reaction, local tissue breakdown, stroke, temporary or permanent nerve injury, paralysis, and possible , the patient indicated that the patient understood and agreed to proceed. An informed consent document was signed by the patient, witnessed by a nurse, and placed in the patient's chart. Additionally, other treatment options including medications, modalities, and physical therapy were reviewed with the patient. After review of previous anaesthesic history and IV conscious sedation the patient was deemed safe to proceed with today?s procedure with IV conscious sedation as ASA class II designation. Safety time-out was performed to confirm patient ID, procedure to be performed and site of procedure. IV sedation was accomplished with a combination of 2mg of Versed was administered by the RN after DO order, titrated to patient comfort during the course of the procedure while the patient remained responsive to all verbal commands In the prone position following sterile prep and drape of the lumbar region, the right L3/4 posterior neuroforamen was identified fluoroscopically. The skin was anesthetized via a 25-gauge 1.5-inch needle with 1% lidocaine solution. At this point, a 25-gauge 3.5-inch spinal needle was atraumatically introduced and advanced under fluoroscopic guidance through the posterior right L3/4 neuroforamen to approximately the anterior aspect of the canal. Depth was confirmed on lateral view. Following negative aspiration, injection of approximately 1.5cc of Isovue 200 under live fluoroscopy in the AP view confirmed excellent flow along the nerve root, into the epidural space without vascular or intrathecal uptake observed Radiological data, including multiple fluoroscopic views of the lumbosacral spine, reveal a spinal needle at the right L3/4 posterior neuroforamen. Subsequent views show flow of contrast material flowing superiorly and inferiorly along the nerve root confirming epidural flow. Subsequently, a test dose of 1.5cc of 1% lidocaine solution was administered and patient was observed for two minutes for signs or symptoms of complications, including abdominal pain, shortness of breath, bilateral upper or lower extremity weakness, nausea and vomiting, prior to steroid injection. At this point, a total of 2cc or 10mg of dexamethasone and 6mg betamethasone was injected without incident. Attention was then refocused to the left L3/4 level where the identical procedure was replicated. The procedure tolerated the procedure well without signs or symptoms of complications prior to transfer to the recovery area continued monitoring without incident. The patient was then transferred to the recovery area where they were observed for an appropriate time after the injection. The patient reported a VAS score of 7 prior to the procedure and a post-procedure VAS of 0. POST OP INSTRUCTIONS The patient was provided a Pain Log to continue to record their response to the target-specific procedure prior to follow-up visit with their referring physician. Additionally, specific post-injection care instructions and a contact number to our office were provided if concerns arise regarding possible complications associated with the procedure are suspected.
--- NOTE | 2023-01-09 10:49 | PC.NURSE ---
Patients heart rate Sinus maría, 35-44 bpm, Patient reports that this is his normal, Denies any dizziness, change in vision. A&O able to make needs known, drinking water, coffee and tea and eating cookies. MD aware of heart rate no new orders. Patient encouraged to f/u with PCP and programming coordinator. 0842- patient arrived back to post room and noted to have numbness and weakness to BLE is able to move legs but unable to bear weight independently, was a 3 max assist stand pivot transfer to chair. 0950- Stood patient at chair was able to stand on BLE, had march in place but has some weakness but report that it is feeling much better. 1010- Dr landers came assessed patient and stood him at chair, Ok to d/c home per Dr Landers. called and patient was discharged at this time. Continue to have no pain at this time.
== END 2023-01-09 10:10 | disposition home or self-care (01) ==
LOC: RAD 06:46
PROVIDERS: Family Provider Pediatrics; PCP Family Medicine; Referring Provider Physical Medicine & Rehabilitation; Visit Provider Physical Medicine & Rehabilitation
DX: M48.061 Spinal stenosis, lumbar region without neurogenic claudication (principal); M51.16 Intervertebral disc disorders with radiculopathy, lumbar region; M47.26 Other spondylosis with radiculopathy, lumbar region
CPT/HCPCS: 64483; 99152; J0702; J1100; J2250; J3490

== ENCOUNTER → 2023-02-28 08:52 | Outpatient (CLI) | payer MEDICARE, OTHER, SELFPAY ==
[2023-02-28 10:13] LABS: Add Manual Diff / Slide Review NO; Basophils Absolute Auto 0 /uL (0-100); Basophils Percent Auto 0.7 % (0-2); Eosinophils Absolute Auto 100 /uL (0-450); Eosinophils Percent Auto 2.2 % (2-4); Hematocrit 41.7 % (41-53); Hemoglobin 13.9 g/dL (13.5-17.5); Lymphocytes Absolute Auto 2500 /uL (1100-4500); Lymphocytes Percent Auto 36.5 % (25-40); Mean Corpuscular HGB Conc 33.3 % (30-36); Mean Corpuscular Hemoglobin 33.1 PG (26-34); Mean Corpuscular Volume 99.6 fL (80-100); Monocytes Absolute Auto 800 /uL (0-900); Monocytes Percent Auto 11.9 % (3-14); Neutrophils Absolute Auto 3300 /uL (1500-7000); Neutrophils Percent Auto 48.7 % (50-75); Platelet Count 142 X10^3/uL (150-400); Red Blood Cell Count 4.19 X10^6/uL (4.5-5.9); Red Cell Distribution Width 15.8 % (11.6-14.8); White Blood Cell Count 6.7 X10^3/uL (4.5-11.0)
[2023-02-28 10:19] LABS: Hemoglobin A1C% w Est Avg Glu 5.3 % (4.0-6.0)
[2023-02-28 10:24] LABS: BUN Creatinine Ratio 12.1 (6-22); Blood Urea Nitrogen 17 mg/dL (9-20); Carbon Dioxide 25 mmol/L (22-32); Chloride 108 mmol/L (98-107); Estimated Glomerular Filt Rate 51 mL/min (>60); Glucose 90 mg/dL (80-110); HEMOLYSIS 27 (0-50); Potassium 4.5 mmol/L (3.4-5.1); Sodium 138 mmol/L (137-145)
[2023-02-28 10:46] LABS: Microalbumin Urine Random 8.1 mg/dL (0-1.6)
[2023-02-28 10:51] LABS: TSH w/ Reflex to FT4 1.71 uIU/mL (0.47-4.68)
[2023-02-28 18:39] LABS: Creatinine Urine Random 443.3 mg/dL; Microalbumi Creatinin Ratio Ur 18.2 ug/mg CR (<30)
== END ==
PROVIDERS: Family Provider Pediatrics; PCP Family Medicine; Referring Provider Family Medicine; Visit Provider Family Medicine
DX: N18.30 Chronic kidney disease, stage 3 unspecified (principal); I10 Essential (primary) hypertension; E03.9 Hypothyroidism, unspecified
CPT/HCPCS: 36415; 80048; 82043; 82570; 83036; 84443; 85025

== ENCOUNTER 2023-03-01 09:22 | Outpatient (CLI) | payer MEDICARE, OTHER, SELFPAY ==
[2023-03-01] VITALS (7 sets, daily range): BP systolic 108–182; BP diastolic 55–79; PULSE 44–59; RESP 15–23; TEMP 36.2; O2SAT 93–95
--- NOTE | 2023-03-01 11:15 | DI.RAD.S_ITS ---
PROCEDURE: PAIN L/S TRANSFORAMINAL INJECT INDICATIONS: SPONDYLOSIS COMPARISON: None. FINDINGS: Fluoroscopic spot filming was performed to verify placement of spinal needles at the left L4-5 level(s), as labeled on the films. Appropriate location(s) of the needle tip(s) was confirmed by injection of iodinated contrast. IMPRESSION: Intraoperative fluoroscopy for epidural steroid injection. Dictated by: Martine Vee M.D. on 03/01/2023 at 14:10 Approved by: Martine Vee M.D. on 03/01/2023 at 14:11
[2023-03-01] MEDS: MIDAZOLAM 2 MG/2 ML VIAL IV (12:02)
[2023-03-01] MEDS: iopamidoL 15 ML VIAL 3 ML INJ (12:06)
[2023-03-01] MEDS: BUPIVACAINE 0.25% (PF) VIAL 2 ML INJ (12:07)
[2023-03-01] MEDS: DEXAMETHASONE 10 MG/ML VIAL INJ ×2 (12:07→12:08)
[2023-03-01] MEDS: BETAMETHASONE 30 MG/5 ML MDV 6 MG INJ (12:07)
--- NOTE | 2023-03-01 12:27 | P.PCN_ITS ---
Date/Time/Diagnoses Date of procedure: 03/01/23 Time of procedure: 12:27 Pre-procedure diagnosis: 1. FORAMINAL STENOSIS WITH LE SYMPTOMS Post-procedure diagnosis: same Procedure Notes Procedure: 1. FLUOROSCOPICALLY GUIDED CONTRAST CONTROLLED TRANSFORAMINAL EPIDURAL STEROID INJECTION - LEFT L4/5 Indications: Mino is referred by Dr. Park for treatment of Foraminal Stenosis with Left LE Symptoms Physician: Ashwin Landers Total Fluoroscopy time (seconds): 12 Total sedation minutes: 16 Complications: none Procedure in detail & Post-procedure care: FINDINGS Foraminal Nerve Root Compression secondary to disc disease and facet hypertrophy DESCRIPTION OF PROCEDURE Following review of allergy and review of potential side effects and complications, including, but not necessarily limited to, infection, allergic reaction, local tissue breakdown, stroke, temporary or permanent nerve injury, paralysis, and possible , the patient indicated that the patient understood and agreed to proceed. An informed consent document was signed by the patient, witnessed by a nurse, and placed in the patient's chart. Additionally, other treatment options including medications, modalities, and physical therapy were reviewed with the patient. After review of previous anaesthesic history and IV conscious sedation the patient was deemed safe to proceed with today?s procedure with IV conscious sedation as ASA class II designation. Safety time-out was performed to confirm patient ID, procedure to be performed and site of procedure. IV sedation was accomplished with a combination of 2mg of Versed administered by the RN after DO order, titrated to patient comfort during the course of the procedure while the patient remained responsive to all verbal commands In the prone position following sterile prep and drape of the lumbar region, the left L4/5 posterior neuroforamen was identified fluoroscopically. The skin was anesthetized via a 25-gauge 1.5-inch needle with 1% lidocaine solution. At this point, a 25-gauge 3.5-inch spinal needle was atraumatically introduced and advanced under fluoroscopic guidance through the posterior left L4/5 neuroforamen to approximately the anterior aspect of the canal. Depth was confirmed on lateral view. Following negative aspiration, injection of approximately 1.5 cc of Isovue 200 under live fluoroscopy in the AP view confirmed excellent flow along the nerve root, into the epidural space without vascular or intrathecal uptake observed Radiological data, including multiple fluoroscopic views of the lumbosacral spine, reveal a spinal needle at the left L4/5 posterior neuroforamen. Subsequent views show flow of contrast material flowing superiorly and inferiorly along the nerve root confirming epidural flow. Subsequently, a test dose of 1.5 cc of 1% lidocaine solution was administered and patient was observed for two minutes for signs or symptoms of complications, including abdominal pain, shortness of breath, bilateral upper or lower extremity weakness, nausea and vomiting, prior to steroid injection. At this point, a total of 2cc or 10mg of dexamethasone and 6mg of betamethasone was injected without incident. The procedure tolerated the procedure well without signs or symptoms of complications prior to transfer to the recovery area continued monitoring without incident. The patient was then transferred to the recovery area where they were observed for an appropriate time after the injection. The patient reported a VAS score of 7 prior to the procedure and a post- procedure VAS of 0. POST OP INSTRUCTIONS The patient was provided a Pain Log to continue to record their response to the target-specific procedure prior to follow-up visit with their referring physician. Additionally, specific post-injection care instructions and a contact number to our office were provided if concerns arise regarding possible complications associated with the procedure are suspected.
== END 2023-03-01 12:40 | disposition home or self-care (01) ==
LOC: RAD 09:23
PROVIDERS: Family Provider Pediatrics; PCP Family Medicine; Referring Provider Physical Medicine & Rehabilitation; Visit Provider Physical Medicine & Rehabilitation
DX: M48.061 Spinal stenosis, lumbar region without neurogenic claudication (principal); M51.16 Intervertebral disc disorders with radiculopathy, lumbar region; M47.26 Other spondylosis with radiculopathy, lumbar region
CPT/HCPCS: 64483; 99152; J0702; J1100; J2250; J3490

== ENCOUNTER → 2023-03-06 14:43 | Outpatient (CLI) | payer MEDICARE, OTHER, SELFPAY | PROVIDERS: Family Provider Pediatrics; PCP Family Medicine; Referring Provider Family Medicine; Visit Provider Family Medicine | DX: R06.02 Shortness of breath (principal); J98.8 Other specified respiratory disorders | CPT/HCPCS: 94060 ==

== ENCOUNTER → 2023-03-14 10:00 | Outpatient (CLI) | payer MEDICARE, OTHER, SELFPAY ==
[2023-03-14 11:23] LABS: Add Manual Diff / Slide Review NO; Basophils Absolute Auto 0 /uL (0-100); Basophils Percent Auto 0.5 % (0-2); Eosinophils Absolute Auto 100 /uL (0-450); Eosinophils Percent Auto 1.7 % (2-4); Hematocrit 41.4 % (41-53); Hemoglobin 14.1 g/dL (13.5-17.5); Lymphocytes Absolute Auto 2200 /uL (1100-4500); Lymphocytes Percent Auto 31.6 % (25-40); Mean Corpuscular HGB Conc 34.1 % (30-36); Mean Corpuscular Hemoglobin 33.9 PG (26-34); Mean Corpuscular Volume 99.5 fL (80-100); Monocytes Absolute Auto 500 /uL (0-900); Monocytes Percent Auto 7.7 % (3-14); Neutrophils Absolute Auto 4100 /uL (1500-7000); Neutrophils Percent Auto 58.5 % (50-75); Platelet Count 142 X10^3/uL (150-400); Red Blood Cell Count 4.17 X10^6/uL (4.5-5.9); Red Cell Distribution Width 15.9 % (11.6-14.8)
[2023-03-14 11:49] LABS: Alanine Aminotransferase 73 IU/L (<50); Albumin 3.5 g/dL (3.5-5.0); Albumin Globulin Ratio 0.8 (1.0-2.8); Alkaline Phosphatase 158 U/L (38-126); Aspartate Aminotransferase 73 IU/L (17-59); BUN Creatinine Ratio 14.3 (6-22); Bilirubin Total 0.9 mg/dL (0.2-1.3); Blood Urea Nitrogen 20 mg/dL (9-20); Calcium 9.2 mg/dL (8.4-10.2); Carbon Dioxide 24 mmol/L (22-32); Chloride 110 mmol/L (98-107); Estimated Glomerular Filt Rate 51 mL/min (>60); Globulin 4.4 g/dL (1.7-4.1); Glucose 88 mg/dL (80-110); HEMOLYSIS < 15 (0-50); Potassium 4.5 mmol/L (3.4-5.1); Sodium 139 mmol/L (137-145); Total Protein 7.9 g/dL (6.3-8.2)
[2023-03-14 12:30] LABS: Prostate Specific Antigen < 0.064 ng/mL (0.10-4.00)
[2023-03-15 19:00] LABS: Free Kappa Lt Chains, Serum 169.8 mg/L (3.3-19.4); Free Lambda Lt Chains,Serum 12.6 mg/L (5.7-26.3)
[2023-03-16 12:52] LABS: Immunoglobulin A, Serum 146 mg/dL (61-437); Immunoglobulin G,Serum 2494 mg/dL (603-1613); Immunoglobulin M, Serum 49 mg/dL (15-143)
[2023-03-16 13:13] LABS: Albumin 3.1 g/dL (2.9-4.4); Alpha-1-Globulin 0.2 g/dL (0.0-0.4); Alpha-2-Globulin 0.8 g/dL (0.4-1.0); Gamma Globulin 2.3 g/dL (0.4-1.8); Globulin Total 4.2 g/dL (2.2-3.9); Protein, Total 7.3 g/dL (6.0-8.5)
== END ==
PROVIDERS: Family Provider Pediatrics; PCP Family Medicine; Referring Provider Internal Medicine Hematology & Oncology; Visit Provider Internal Medicine Hematology & Oncology
DX: C61 Malignant neoplasm of prostate (principal); D47.2 Monoclonal gammopathy; M54.16 Radiculopathy, lumbar region; N99.89 Other postprocedural complications and disorders of genitourinary system; N39.3 Stress incontinence (female) (male)
CPT/HCPCS: 36415; 80053; 82784; 83883; 84153; 84155; 84165; 85025; 86334; 99214

== ENCOUNTER → 2023-03-21 11:38 | Outpatient (CLI) | payer MEDICARE, OTHER, SELFPAY ==
--- NOTE | 2023-03-21 11:40 | DI.CT.S_ITS ---
PROCEDURE: CT ABDOMEN RENAL PROTOCOL INDICATIONS: Follow-up history of kidney cancer TECHNIQUE: Optional 5 mm thick noncontrast images acquired from the diaphragm to the iliac crests. After the administration of intravenous contrast, 5 mm thick images again acquired from the diaphragm to the iliac crests in the arterial and urographic phases. 5 mm thick coronal and sagittal reformats were then acquired. For radiation dose reduction, the following was used: automated exposure control, adjustment of mA and/or kV according to patient size. COMPARISON: [facility], CT, CT ABDOMEN PELVIS WO/W CON, 09/25/2022, 8:04. FINDINGS: Image quality: Diagnostic. Kidneys and Ureters: Asymmetrically diminutive right kidney. Diffusely scarred and partially calcified cortex of the posterior superior right kidney. No definite enhancement of the tissue. There is an associated circumscribed ovoid fatty mass along the inferior margin of the scar measuring 1.3 x 1.4 cm. There is no new soft tissue nodularity in the renal fossa or along the renal vasculature. The remaining renal tissue demonstrate symmetric enhancement and excretion of IV contrast. There are several left-sided parapelvic cysts. No solid masses. The visible proximal ureters are normal. OTHER: Lower chest: Minor scarring and atelectasis at both lung bases. No pleural effusion. Moderate cardiomegaly. No pericardial effusion. Liver: Nodular liver margin. No suspicious solid mass or arterial enhancement. Gallbladder: Numerous granular calcifications layering dependently in the body and gallbladder neck. No wall thickening. Biliary ducts: No biliary dilation. Pancreas: No ductal dilation. Spleen: Normal size spleen. Numerous calcified punctate granulomas. Adrenal Glands: No adrenal nodules. Stomach and Bowel: Distended stomach contains ingested material. Visible bowel loops are normal. Peritoneum: No abnormal intraperitoneal fluid. No free air. Ventral Wall: Tiny fat containing umbilical hernia. Abdominal Nodes: No retroperitoneal or mesenteric adenopathy by size criteria. Vessels: Aorta and inferior vena cava are normal in size. Bones: No suspicious bone lesions. Degenerative disc and endplate disease at L4-5. Remote lateral right rib fracture. IMPRESSION: 1. Stable appearance of superior pole right renal scarring without development of recurrent local disease. 2. There is a stable circumscribed exophytic fatty mass adjacent to the area of scarring, potentially focal fat necrosis from treatment versus angiomyolipoma. 3. Cirrhotic liver without visible mass. 4. Cholelithiasis. Dictated by: Martine Vee M.D. on 03/21/2023 at 16:02 Approved by: Martine Vee M.D. on 03/21/2023 at 16:15
== END ==
PROVIDERS: Family Provider Pediatrics; PCP Family Medicine; Referring Provider Urology; Visit Provider Urology
DX: Z09 Encounter for follow-up examination after completed treatment for conditions other than malignant neoplasm (principal); Z85.528 Personal history of other malignant neoplasm of kidney; N28.89 Other specified disorders of kidney and ureter; K74.60 Unspecified cirrhosis of liver; K80.20 Calculus of gallbladder without cholecystitis without obstruction
CPT/HCPCS: 74170; Q9967

== ENCOUNTER 2023-03-27 06:37 | Outpatient (CLI) | payer MEDICARE, OTHER, SELFPAY ==
[2023-03-27] VITALS (9 sets, daily range): BP systolic 119–162; BP diastolic 61–73; PULSE 40–46; RESP 16–21; TEMP 36.2; O2SAT 94–96
--- NOTE | 2023-03-27 08:00 | DI.RAD.S_ITS ---
PROCEDURE: PAIN L INTERLAMINAR/CAUDAL INJ INDICATIONS: para left L4/5 TL JESSICA COMPARISON: [facility], CR, XR LUMBAR SPINE MIN 4V, 01/03/2023, 12:07. [facility], MR, MR LUMBAR SPINE WO CON, 11/30/2022, 16:24. FINDINGS: Fluoroscopic spot filming was performed to verify placement of spinal needles at the L4-L5 level(s), as labeled on the films. Appropriate location(s) of the needle tip(s) was confirmed by injection of iodinated contrast. IMPRESSION: Fluoroscopy pole pain management. Dictated by: Iban Khan M.D. on 03/27/2023 at 13:52 Approved by: Iban Khan M.D. on 03/27/2023 at 13:53
[2023-03-27] MEDS: MIDAZOLAM 2 MG/2 ML VIAL 1 MG IV (08:23)
[2023-03-27] MEDS: BETAMETHASONE 30 MG/5 ML MDV 6 MG INJ (08:29)
[2023-03-27] MEDS: iopamidoL 15 ML VIAL 3 ML INJ (08:29)
[2023-03-27] MEDS: BUPIVACAINE 0.25% (PF) VIAL 2 ML INJ (08:29)
[2023-03-27] MEDS: DEXAMETHASONE 10 MG/ML VIAL INJ (08:29)
--- NOTE | 2023-03-27 08:40 | P.PCN_ITS ---
Date/Time/Diagnoses Date of procedure: 03/27/23 Time of procedure: 08:40 Pre-procedure diagnosis: 1. HNP WITH RADICULAR FEATURES, 2. MULTILEVEL CENTRAL STENOSIS, Post-procedure diagnosis: same Procedure Notes Procedure: 1. FLUOROSCOPICALLY GUIDED CONTRAST CONTROLLED INTERLAMINAR EPIDURAL STEROID INJECTION -L4/5 Indications: Mino is referred by Dr. Park for treatment of Bilateral Foraminal Stenosis R>L LE symptoms. Physician: Ashwin Landers Total Fluoroscopy time (seconds): 7 Total sedation minutes: 12 Complications: none Procedure in detail & Post-procedure care: FINDINGS Multilevel Central Spinal Stenosis with Nerve Root Compression DESCRIPTION OF PROCEDURE Fluoroscopically guided, contrast-controlled L4/5 translaminar epidural steroid injection. Following review of allergy and review of potential side effects and complications, including, but not necessarily limited to, infection, allergic reaction, local tissue breakdown, temporary as well as permanent nerve injury, paralysis, stroke and possible , the patient indicated that the patient understood and agreed to proceed. An informed consent document was signed by the patient, witnessed by a nurse, and placed in the patient's chart. Additionally, other treatment options including modalities, medications, and physical therapy were reviewed with the patient. After review of previous anaesthesic history and IV conscious sedation the patient was deemed safe to proceed with today?s procedure with IV conscious sedation as ASA class II designation. Safety time-out was performed to confirm patient ID, procedure to be performed and site of procedure. IV sedation was accomplished with a combination of 1mg of Versed was administered by the RN after DO order, titrated to patient comfort during the course of the procedure while the patient remained responsive to all verbal commands In the prone position, following sterile prep and drape of the lumbar region, the L4/5 translaminar space was identified fluoroscopically. The skin was anesthetized via a 25-gauge, 1.5inch needle with 1% lidocaine solution. At this point, a 22-gauge short bevel spinal needle was atraumatically introduced and advanced under fluoroscopic guidance into the region of the L4/5 translaminar space. Depth was confirmed on lateral view. Radiological data, including multiple fluoroscopic views of the lumbar spine, reveal a spinal needle at the L4/5 translaminar space. Lateral views then show placement of the needle in the epidural space. Subsequent views show contrast material flowing superiorly and inferiorly in the epidural space. No vascular or intrathecal uptake is observed. At this point, using loss of resistance technique with saline and air, the epidural space was entered. This was confirmed following negative aspiration with injection of approximately 1.5cc of Isovue 200, showing excellent epidural flow without vascular or intrathecal uptake. At this point, 1cc of 1% lidocaine solution combined with 1cc or 10mg of dexamethasone and 6mg betamethasone was injected without incident. The patient tolerated the procedure well without signs or symptoms of complications prior to transfer to the recovery area continued monitoring without incident. The patient was then transferred to the recovery area where they were observed for an appropriate period of time after the injection. The patient reported a VAS score of 6 prior to the procedure and a post- procedure VAS of 0. POST OP INSTRUCTIONS The patient was provided a Pain Log to continue to record their response to the target-specific procedure prior to follow-up visit with their referring physician. Additionally, specific post-injection care instructions and a contact number to our office were provided if concerns arise regarding possible complications associated with the procedure are suspected.
== END 2023-03-27 09:00 | disposition home or self-care (01) ==
LOC: RAD 06:38
PROVIDERS: Family Provider Pediatrics; PCP Family Medicine; Referring Provider Physical Medicine & Rehabilitation; Visit Provider Physical Medicine & Rehabilitation
DX: M51.16 Intervertebral disc disorders with radiculopathy, lumbar region (principal); M48.061 Spinal stenosis, lumbar region without neurogenic claudication
CPT/HCPCS: 62323; 99152; J0702; J1100; J2250; J3490

== ENCOUNTER → 2023-04-23 09:50 | Outpatient (CLI) | payer MEDICARE, OTHER, SELFPAY ==
--- NOTE | 2023-04-23 09:55 | DI.RAD.S_ITS ---
PROCEDURE: XR KNEE LT 3V INDICATIONS: Left TKA acute pain TECHNIQUE: 3 views of the knee were acquired. COMPARISON: None. FINDINGS: Bones: Left knee medial hemiarthroplasty. No periprosthetic lucency to suggest loosening or infection. No fractures or dislocations. No suspicious bony lesions. Lateral compartment mild joint space narrowing. Small osteophytes. Soft tissues: Trace joint effusion. No suspicious soft tissue calcifications. IMPRESSION: Expected appearance of the left knee medial hemiarthroplasty. Dictated by: Harpreet Watt M.D. on 04/23/2023 at 11:26 Approved by: Harpreet Watt M.D. on 04/23/2023 at 11:27
[2023-04-23 12:23] LABS: Add Manual Diff / Slide Review NO; Basophils Absolute Auto 0 /uL (0-100); Basophils Percent Auto 0.3 % (0-2); Eosinophils Absolute Auto 200 /uL (0-450); Hematocrit 42.4 % (41-53); Hemoglobin 14.4 g/dL (13.5-17.5); Lymphocytes Absolute Auto 2100 /uL (1100-4500); Lymphocytes Percent Auto 32.7 % (25-40); Mean Corpuscular HGB Conc 34.1 % (30-36); Mean Corpuscular Hemoglobin 34.1 PG (26-34); Mean Corpuscular Volume 100.2 fL (80-100); Monocytes Absolute Auto 600 /uL (0-900); Monocytes Percent Auto 9.7 % (3-14); Neutrophils Absolute Auto 3400 /uL (1500-7000); Neutrophils Percent Auto 54.3 % (50-75); Platelet Count 149 X10^3/uL (150-400); Red Blood Cell Count 4.23 X10^6/uL (4.5-5.9); Red Cell Distribution Width 15.4 % (11.6-14.8); White Blood Cell Count 6.3 X10^3/uL (4.5-11.0)
[2023-04-23 13:03] LABS: Alanine Aminotransferase 49 IU/L (<50); Albumin 3.7 g/dL (3.5-5.0); Albumin Globulin Ratio 0.8 (1.0-2.8); Alkaline Phosphatase 145 U/L (38-126); Aspartate Aminotransferase 56 IU/L (17-59); BUN Creatinine Ratio 11.3 (6-22); Bilirubin Total 0.7 mg/dL (0.2-1.3); Blood Urea Nitrogen 18 mg/dL (9-20); Calcium 9.1 mg/dL (8.4-10.2); Carbon Dioxide 24 mmol/L (22-32); Chloride 112 mmol/L (98-107); Estimated Glomerular Filt Rate 44 mL/min (>60); Globulin 4.6 g/dL (1.7-4.1); Glucose 90 mg/dL (80-110); HEMOLYSIS < 15 (0-50); Potassium 4.1 mmol/L (3.4-5.1); Sodium 140 mmol/L (137-145); Total Protein 8.3 g/dL (6.3-8.2)
[2023-04-24 22:47] LABS: Free Kappa Lt Chains, Serum 147.6 mg/L (3.3-19.4); Free Lambda Lt Chains,Serum 12.7 mg/L (5.7-26.3)
[2023-04-25 15:45] LABS: Albumin 3.3 g/dL (2.9-4.4); Alpha 1 Globulin 0.1 g/dL (0.0-0.4); Alpha 2 Globulin 0.8 g/dL (0.4-1.0); Beta 1 Globulin 0.9 g/dL (0.7-1.3); Gamma Globulin 2.5 g/dL (0.4-1.8); Immunoglobulin A 135 mg/dL (61-437); Immunoglobulin G 2718 mg/dL (603-1613); Immunoglobulin M 46 mg/dL (15-143); Protein, Total 7.6 g/dL (6.0-8.5)
== END ==
PROVIDERS: Family Provider Pediatrics; PCP Family Medicine; Referring Provider Physical Medicine & Rehabilitation; Visit Provider Physical Medicine & Rehabilitation
DX: D47.2 Monoclonal gammopathy (principal); T84.84XA Pain due to internal orthopedic prosthetic devices, implants and grafts, initial encounter; Z96.659 Presence of unspecified artificial knee joint; R74.8 Abnormal levels of other serum enzymes; M54.16 Radiculopathy, lumbar region; I35.0 Nonrheumatic aortic (valve) stenosis; Z85.528 Personal history of other malignant neoplasm of kidney
CPT/HCPCS: 36415; 73562; 80053; 83883; 84155; 84165; 85025; 99214

== ENCOUNTER 2023-05-01 13:57 | Outpatient (CLI) | payer MEDICARE, OTHER, SELFPAY ==
[2023-05-01] VITALS (8 sets, daily range): BP systolic 132–188; BP diastolic 66–82; PULSE 44–59; RESP 17–20; TEMP 36.4; O2SAT 93–98
--- NOTE | 2023-05-01 15:00 | DI.RAD.S_ITS ---
PROCEDURE: PAIN L/S TRANSFORAMINAL INJECT INDICATIONS: FACET ARTHOPATHY COMPARISON: [facility], , PAIN L/S TRANSFORAMINAL INJECT, 03/01/2023, 13:07. FINDINGS: Fluoroscopic spot filming was performed to verify placement of spinal needles at the left L4-5 level(s), as labeled on the films. Appropriate location(s) of the needle tip(s) was confirmed by injection of iodinated contrast. IMPRESSION: Intra procedural examination demonstrating appropriate positions of the needles. Dictated by: Cruzito Gómez M.D. on 05/01/2023 at 16:34 Approved by: Cruzito Gómez M.D. on 05/01/2023 at 16:34
[2023-05-01] MEDS: MIDAZOLAM 2 MG/2 ML VIAL IV (15:48)
[2023-05-01] MEDS: DEXAMETHASONE 10 MG/ML VIAL INJ (15:54)
[2023-05-01] MEDS: iopamidoL 15 ML VIAL 3 ML INJ (15:54)
[2023-05-01] MEDS: methylPREDNISolone acetate 80 MG/ML VIAL INJ (15:55)
[2023-05-01] MEDS: BUPIVACAINE 0.25% (PF) VIAL 2 ML INJ (15:55)
--- NOTE | 2023-05-01 16:06 | P.PCN_ITS ---
Date/Time/Diagnoses Date of procedure: 05/01/23 Time of procedure: 16:06 Pre-procedure diagnosis: 1. FORAMINAL STENOSIS WITH LE SYMPTOMS Post-procedure diagnosis: same Procedure Notes Procedure: 1. FLUOROSCOPICALLY GUIDED CONTRAST CONTROLLED TRANSFORAMINAL EPIDURAL STEROID INJECTION - LEFT L4/5 Indications: Mino is referred by Dr. Park for treatment of Foraminal Stenosis with Left LE Symptoms Physician: Ashwin Landers Total Fluoroscopy time (seconds): 12 Total sedation minutes: 14 Complications: none Procedure in detail & Post-procedure care: FINDINGS Foraminal Nerve Root Compression secondary to disc disease and facet hypertrophy DESCRIPTION OF PROCEDURE Following review of allergy and review of potential side effects and complications, including, but not necessarily limited to, infection, allergic reaction, local tissue breakdown, stroke, temporary or permanent nerve injury, paralysis, and possible , the patient indicated that the patient understood and agreed to proceed. An informed consent document was signed by the patient, witnessed by a nurse, and placed in the patient's chart. Additionally, other treatment options including medications, modalities, and physical therapy were reviewed with the patient. After review of previous anaesthesic history and IV conscious sedation the patient was deemed safe to proceed with today?s procedure with IV conscious sedation as ASA class II designation. Safety time-out was performed to confirm patient ID, procedure to be performed and site of procedure. IV sedation was accomplished with a combination of 2mg of Versed administered by the RN after DO order, titrated to patient comfort during the course of the procedure while the patient remained responsive to all verbal commands In the prone position following sterile prep and drape of the lumbar region, the left L4/5 posterior neuroforamen was identified fluoroscopically. The skin was anesthetized via a 25-gauge 1.5-inch needle with 1% lidocaine solution. At this point, a 25-gauge 3.5-inch spinal needle was atraumatically introduced and advanced under fluoroscopic guidance through the posterior left L4/5 neuroforamen to approximately the anterior aspect of the canal. Depth was confirmed on lateral view. Following negative aspiration, injection of approximately 1.5 cc of Isovue 200 under live fluoroscopy in the AP view confirmed excellent flow along the nerve root, into the epidural space without vascular or intrathecal uptake observed Radiological data, including multiple fluoroscopic views of the lumbosacral spine, reveal a spinal needle at the left L4/5 posterior neuroforamen. Subsequent views show flow of contrast material flowing superiorly and inferiorly along the nerve root confirming epidural flow. Subsequently, a test dose of 1.5 cc of 1% lidocaine solution was administered and patient was observed for two minutes for signs or symptoms of complications, including abdominal pain, shortness of breath, bilateral upper or lower extremity weakness, nausea and vomiting, prior to steroid injection. At this point, a total of 2cc or 10mg of dexamethasone and 80mg of Depo medrole was injected without incident. The procedure tolerated the procedure well without signs or symptoms of complications prior to transfer to the recovery area continued monitoring without incident. The patient was then transferred to the recovery area where they were observed for an appropriate time after the injection. The patient reported a VAS score of 7 prior to the procedure and a post- procedure VAS of 0. POST OP INSTRUCTIONS The patient was provided a Pain Log to continue to record their response to the target-specific procedure prior to follow-up visit with their referring physician. Additionally, specific post-injection care instructions and a contact number to our office were provided if concerns arise regarding possible complications associated with the procedure are suspected.
== END 2023-05-01 16:22 | disposition home or self-care (01) ==
LOC: RAD 13:58
PROVIDERS: Family Provider Pediatrics; PCP Family Medicine; Referring Provider Physical Medicine & Rehabilitation; Visit Provider Physical Medicine & Rehabilitation
DX: M48.061 Spinal stenosis, lumbar region without neurogenic claudication (principal); M51.16 Intervertebral disc disorders with radiculopathy, lumbar region; M47.26 Other spondylosis with radiculopathy, lumbar region
CPT/HCPCS: 64483; 99152; J1040; J1100; J2250; J3490

== ENCOUNTER → 2023-06-21 07:43 | Outpatient (CLI) | payer MEDICARE, OTHER, SELFPAY ==
--- NOTE | 2023-06-21 07:49 | DI.NM.S_ITS ---
PROCEDURE: NM BONE SCAN WHOLE BODY RADIOPHARMACEUTICAL: 21.9 mCi Tc-99m MDP IV. INDICATIONS: Presence of unspecified artificial knee joint TECHNIQUE: Delayed whole-body scintigrams were obtained approximately 3-4 hours after intravenous injection of radiotracer. Anterior and posterior views were acquired from vertex to feet. Additional left and right oblique views of the knees were obtained. COMPARISON: [facility], MR, MR LUMBAR SPINE WO CON, 11/30/2022, 16:24. [facility], CT, CT ABDOMEN PELVIS WO/W CON, 09/25/2022, 8:04. [facility], CR, XR KNEE LT 3V, 04/23/2023, 10:01. [facility], CT, CT ABDOMEN RENAL PROTOCOL, 03/21/2023, 11:46. FINDINGS: Increased activity involving several joints including the bilateral wrists, right knee, feet and mid thoracic spine, lower lumbar spine on the left. Findings are favored to be degenerative in etiology. Increased within the left knee, predominately within the lateral compartment. Activity surrounding the medial unicompartmental arthroplasty is not significantly increased. IMPRESSION: Increased activity within the left knee, predominately within the lateral compartment. Activity surrounding the medial unicompartmental arthroplasty is not significantly increased. Findings may be degenerative in etiology. Additional foci of activity are favored to be degenerative in etiology. Dictated by: Cruzito Gómez M.D. on 06/21/2023 at 14:58 Approved by: Cruzito Gómez M.D. on 06/21/2023 at 15:05
[2023-06-21 09:23] LABS: Alanine Aminotransferase 52 IU/L (<50); Alkaline Phosphatase 143 U/L (38-126); Aspartate Aminotransferase 62 IU/L (17-59); BUN Creatinine Ratio 13.1 (6-22); Bilirubin Total 0.8 mg/dL (0.2-1.3); Blood Urea Nitrogen 18 mg/dL (9-20); Calcium 9.1 mg/dL (8.4-10.2); Carbon Dioxide 25 mmol/L (22-32); Chloride 111 mmol/L (98-107); Cholesterol 152 mg/dL (140-199); Estimated Glomerular Filt Rate 53 mL/min (>60); Glucose 93 mg/dL (80-110); HDL Cholesterol 51 mg/dL (40-60); HEMOLYSIS < 15 (0-50); LDL Cholesterol Calculated 78 mg/dL (<100); Potassium 4.3 mmol/L (3.4-5.1); Sodium 142 mmol/L (137-145); Triglycerides 115 mg/dL (35-150)
[2023-06-21 12:30] LABS: Creatinine Urine Random 225.3 mg/dL
[2023-06-21 13:52] LABS: Microalbumi Creatinin Ratio Ur 132.2 ug/mg CR (<30); Microalbumin Urine Random 29.8 mg/dL (0-1.6)
== END ==
LOC: NUCM 07:44
PROVIDERS: Family Provider Pediatrics; PCP Family Medicine; Referring Provider Orthopaedic Surgery; Visit Provider Orthopaedic Surgery
DX: Z09 Encounter for follow-up examination after completed treatment for conditions other than malignant neoplasm (principal); K74.60 Unspecified cirrhosis of liver; I12.0 Hypertensive chronic kidney disease with stage 5 chronic kidney disease or end stage renal disease; Z96.659 Presence of unspecified artificial knee joint; N18.6 End stage renal disease
CPT/HCPCS: 36415; 78306; 80053; 80061; 82043; 82570; A9503

== ENCOUNTER → 2023-06-22 07:42 | Outpatient (CLI) | payer MEDICARE, OTHER, SELFPAY ==
[2023-06-22 08:25] LABS: Add Manual Diff / Slide Review NO; Basophils Absolute Auto 0 /uL (0-100); Basophils Percent Auto 0.6 % (0-2); Eosinophils Absolute Auto 100 /uL (0-450); Eosinophils Percent Auto 1.8 % (2-4); Hemoglobin 14.8 g/dL (13.5-17.5); Lymphocytes Absolute Auto 2500 /uL (1100-4500); Lymphocytes Percent Auto 38.7 % (25-40); Mean Corpuscular HGB Conc 34.3 % (30-36); Mean Corpuscular Hemoglobin 33.9 PG (26-34); Mean Corpuscular Volume 98.8 fL (80-100); Monocytes Absolute Auto 500 /uL (0-900); Monocytes Percent Auto 7.9 % (3-14); Neutrophils Absolute Auto 3400 /uL (1500-7000); Platelet Count 164 X10^3/uL (150-400); Red Blood Cell Count 4.35 X10^6/uL (4.5-5.9); Red Cell Distribution Width 15.4 % (11.6-14.8); White Blood Cell Count 6.6 X10^3/uL (4.5-11.0)
[2023-06-22 08:44] LABS: Alanine Aminotransferase 48 IU/L (<50); Albumin 3.8 g/dL (3.5-5.0); Albumin Globulin Ratio 0.9 (1.0-2.8); Alkaline Phosphatase 137 U/L (38-126); Aspartate Aminotransferase 55 IU/L (17-59); Bilirubin Total 0.8 mg/dL (0.2-1.3); Blood Urea Nitrogen 21 mg/dL (9-20); Calcium 9.1 mg/dL (8.4-10.2); Carbon Dioxide 31 mmol/L (22-32); Chloride 111 mmol/L (98-107); Estimated Glomerular Filt Rate 47 mL/min (>60); Globulin 4.2 g/dL (1.7-4.1); Glucose 94 mg/dL (80-110); HEMOLYSIS < 15 (0-50); Potassium 4.8 mmol/L (3.4-5.1); Sodium 142 mmol/L (137-145)
== END ==
PROVIDERS: Family Provider Pediatrics; PCP Family Medicine; Referring Provider Internal Medicine Hematology & Oncology; Visit Provider Internal Medicine Hematology & Oncology
DX: Z51.11 Encounter for antineoplastic chemotherapy (principal)
CPT/HCPCS: 36415; 80053; 83883; 84155; 84165; 85025

== ENCOUNTER → 2023-07-04 15:45 | Outpatient (CLI) | payer MEDICARE, OTHER, SELFPAY ==
[2023-07-04 17:37] LABS: BUN Creatinine Ratio 15.1 (6-22); Blood Urea Nitrogen 22 mg/dL (9-20); Calcium 9.4 mg/dL (8.4-10.2); Carbon Dioxide 24 mmol/L (22-32); Chloride 112 mmol/L (98-107); Estimated Glomerular Filt Rate 49 mL/min (>60); Glucose 92 mg/dL (80-110); HEMOLYSIS < 15 (0-50); Potassium 4.4 mmol/L (3.4-5.1); Sodium 140 mmol/L (137-145)
[2023-07-04 17:40] LABS: Appearance Urine UA CLEAR; Bilirubin Urine UA NEGATIVE (NEGATIVE); Color Urine UA YELLOW; Glucose Urine UA NEGATIVE (Negative); Ketones Urine UA NEGATIVE (NEGATIVE); Leukocyte Esterase Urine UA NEGATIVE (NEGATIVE); Nitrite Urine UA NEGATIVE (Negative); Occult Blood Urine UA NEGATIVE (Negative); Protein Urine UA TRACE (Negative); Specific Gravity Urine UA >=1.030 (1.000-1.035); Urobilinogen Urine UA 0.2 E.U./dL (0.2); pH Urine UA 5.5 (4.5-8.0)
[2023-07-04 17:45] LABS: Add Manual Diff / Slide Review NO; Basophils Absolute Auto 0 /uL (0-100); Basophils Percent Auto 0.5 % (0-2); Eosinophils Absolute Auto 100 /uL (0-450); Eosinophils Percent Auto 1.2 % (2-4); Hemoglobin A1C% w Est Avg Glu 5.5 % (4.0-6.0); Lymphocytes Absolute Auto 2600 /uL (1100-4500); Lymphocytes Percent Auto 36.6 % (25-40); Mean Corpuscular HGB Conc 34.1 % (30-36); Mean Corpuscular Hemoglobin 34.2 PG (26-34); Mean Corpuscular Volume 100.5 fL (80-100); Monocytes Absolute Auto 600 /uL (0-900); Monocytes Percent Auto 8.6 % (3-14); Neutrophils Absolute Auto 3800 /uL (1500-7000); Neutrophils Percent Auto 53.1 % (50-75); Platelet Count 162 X10^3/uL (150-400); Red Blood Cell Count 4.09 X10^6/uL (4.5-5.9); Red Cell Distribution Width 15.4 % (11.6-14.8); White Blood Cell Count 7.1 X10^3/uL (4.5-11.0)
[2023-07-04 17:57] LABS: Bacteria Urine None Seen; Culture Indicated Urine Cult Not Indicated; RBC Urine None Seen (0-5/HPF); Squamous Epithelial Cell Urine None Seen (0-5/HPF); Urine Volume 10mL (spun); WBC Urine None Seen (0-5/HPF)
== END ==
PROVIDERS: Family Provider Pediatrics; PCP Family Medicine; Referring Provider Orthopaedic Surgery; Visit Provider Orthopaedic Surgery
DX: Z01.818 Encounter for other preprocedural examination (principal); R73.9 Hyperglycemia, unspecified; Z01.812 Encounter for preprocedural laboratory examination; N39.0 Urinary tract infection, site not specified
CPT/HCPCS: 36415; 80048; 81001; 83036; 85025; 93005; 93010

== ENCOUNTER 2023-08-30 14:20 | Outpatient (CLI) | payer MEDICARE, OTHER, SELFPAY ==
[2023-08-30] VITALS (8 sets, daily range): BP systolic 113–173; BP diastolic 61–79; PULSE 49–55; RESP 12–21; TEMP 36.4; O2SAT 94–98
--- NOTE | 2023-08-30 15:15 | DI.RAD.S_ITS ---
PROCEDURE: PAIN L INTERLAMINAR/CAUDAL INJ INDICATIONS: para Right L3/4 TL JESSICA COMPARISON: [facility], , PAIN L INTERLAMINAR/CAUDAL INJ, 03/27/2023, 9:28. FINDINGS: Fluoroscopic spot filming was performed to verify placement of spinal needles at the L3-L4 level(s), as labeled on the films. Appropriate location(s) of the needle tip(s) was confirmed by injection of iodinated contrast. IMPRESSION: Fluoroscopic images with needle at the L3-L4 level. Please see procedure report for details. Dictated by: Manan Weathers M.D. on 08/30/2023 at 16:27 Approved by: Manan Weathers M.D. on 08/30/2023 at 16:28
[2023-08-30] MEDS: MIDAZOLAM 2 MG/2 ML VIAL 1 MG IV (15:17)
[2023-08-30] MEDS: iopamidoL 15 ML VIAL 3 ML INJ (15:23)
[2023-08-30] MEDS: DEXAMETHASONE 10 MG/ML VIAL INJ (15:23)
[2023-08-30] MEDS: BETAMETHASONE 30 MG/5 ML MDV 6 MG INJ (15:23)
[2023-08-30] MEDS: BUPIVACAINE 0.25% (PF) VIAL 2 ML INJ (15:24)
--- NOTE | 2023-08-30 15:35 | P.PCN_ITS ---
Date/Time/Diagnoses Date of procedure: 08/30/23 Time of procedure: 15:35 Pre-procedure diagnosis: 1. HNP WITH RADICULAR FEATURES, 2. MULTILEVEL CENTRAL STENOSIS, Post-procedure diagnosis: same Procedure Notes Procedure: 1. FLUOROSCOPICALLY GUIDED CONTRAST CONTROLLED INTERLAMINAR EPIDURAL STEROID INJECTION - L3/4 Indications: Mino is referred by Dr. Park for treatment of Bilateral Foraminal Stenosis L>R LE symptoms. Physician: Ashwin Landers Total Fluoroscopy time (seconds): 5 Total sedation minutes: 11 Complications: none Procedure in detail & Post-procedure care: FINDINGS Multilevel Central Spinal Stenosis with Nerve Root Compression DESCRIPTION OF PROCEDURE Fluoroscopically guided, contrast-controlled L3/4 translaminar epidural steroid injection. Following review of allergy and review of potential side effects and complications, including, but not necessarily limited to, infection, allergic reaction, local tissue breakdown, temporary as well as permanent nerve injury, paralysis, stroke and possible , the patient indicated that the patient understood and agreed to proceed. An informed consent document was signed by the patient, witnessed by a nurse, and placed in the patient's chart. Additionally, other treatment options including modalities, medications, and physical therapy were reviewed with the patient. After review of previous anaesthesic history and IV conscious sedation the patient was deemed safe to proceed with today?s procedure with IV conscious sedation as ASA class II designation. Safety time-out was performed to confirm p atient ID, procedure to be performed and site of procedure. IV sedation was accomplished with a combination of 1mg of Versed was administered by the RN after DO order, titrated to patient comfort during the course of the procedure while the patient remained responsive to all verbal commands. In the prone position, following sterile prep and drape of the lumbar region, the L3/4 translaminar space was identified fluoroscopically. The skin was anesthetized via a 25-gauge, 1.5-inch needle with 1% lidocaine solution. At this point, a 22-gauge short bevel spinal needle was atraumatically introduced and advanced under fluoroscopic guidance into the region of the L3/4 translaminar space. Depth was confirmed on lateral view. Radiological data, including multiple fluoroscopic views of the lumbar spine, reveal a spinal needle at the L3/4 translaminar space. Lateral views then show placement of the needle in the epidural space. Subsequent views show contrast material flowing superiorly and inferiorly in the epidural space. No vascular or intrathecal uptake is observed. At this point, using loss of resistance technique with saline and air, the epidural space was entered. This was confirmed following negative aspiration with injection of approximately 1.5 cc of Isovue 200, showing excellent epidural flow without vascular or intrathecal uptake. At this point, 1cc of 1% lidocaine solution combined with 2cc or 10mg of dexamethasone and 6mg of betamethasone was injected without incident. The patient tolerated the procedure well without signs or symptoms of complications prior to transfer to the recovery area continued monitoring without incident. The patient was then transferred to the recovery area where they were observed for an appropriate period of time after the injection. The patient reported a VAS score of 6 prior to the procedure and a post- procedure VAS of 0. POST OP INSTRUCTIONS The patient was provided a Pain Log to continue to record their response to the target-specific procedure prior to follow-up visit with their referring physician. Additionally, specific post-injection care instructions and a contact number to our office were provided if concerns arise regarding possible complications associated with the procedure are suspected.
== END 2023-08-30 15:58 | disposition home or self-care (01) ==
LOC: RAD 14:21
PROVIDERS: Family Provider Pediatrics; PCP Family Medicine; Referring Provider Physical Medicine & Rehabilitation; Visit Provider Physical Medicine & Rehabilitation
DX: M51.16 Intervertebral disc disorders with radiculopathy, lumbar region (principal); M48.061 Spinal stenosis, lumbar region without neurogenic claudication
CPT/HCPCS: 62323; 99152; J0702; J1100; J2250; J3490

== ENCOUNTER → 2023-09-29 08:09 | Outpatient (CLI) | payer MEDICARE, OTHER, SELFPAY ==
[2023-09-29 09:20] LABS: BUN Creatinine Ratio 11.6 (6-22); Blood Urea Nitrogen 17 mg/dL (9-20); Calcium 8.8 mg/dL (8.4-10.2); Carbon Dioxide 25 mmol/L (22-32); Chloride 108 mmol/L (98-107); Estimated Glomerular Filt Rate 48 mL/min (>60); Glucose 94 mg/dL (80-110); HEMOLYSIS < 15 (0-50); Potassium 4.5 mmol/L (3.4-5.1); Sodium 138 mmol/L (137-145)
[2023-09-29 09:51] LABS: Prostate Specific Antigen < 0.064 ng/mL (0.10-4.00)
== END ==
PROVIDERS: Family Provider Pediatrics; PCP Family Medicine; Referring Provider Urology; Visit Provider Urology
DX: C61 Malignant neoplasm of prostate (principal); N28.9 Disorder of kidney and ureter, unspecified
CPT/HCPCS: 36415; 80048; 84153

== ENCOUNTER 2023-10-02 08:46 | Inpatient (IN) | payer MEDICARE, OTHER, SELFPAY ==
[2023-09-24 08:47] VITALS: BMI 28.2
[2023-10-02] VITALS (14 sets, daily range): BP systolic 107–141; BP diastolic 62–83; PULSE 54–66; RESP 12–18; TEMP 36–37; O2SAT 93–98; BMI 28.0
--- NOTE | 2023-10-02 06:00 | DI.RAD.S_ITS ---
PROCEDURE: XR KNEE LT 1TO2V INDICATIONS: TKA TECHNIQUE: 2 view(s) of the knee acquired. COMPARISON: [facility], CR, XR KNEE LT 3V, 04/23/2023, 10:01. FINDINGS: Bones: Patient is status post knee joint arthroplasty. Hardware components are in expected positions. Visualized bony structures are intact. Soft tissues: Overlying postoperative changes are noted. IMPRESSION: Expected post-operative appearance of a knee arthroplasty. Dictated by: Bradford Yang M.D. on 10/03/2023 at 11:14 Approved by: Bradford Yang M.D. on 10/03/2023 at 11:16
[2023-10-02] MEDS: ACETAMINOPHEN 325 MG TABLET 975 MG PO (10:01)
[2023-10-02] MEDS: LACTATED RINGERS 1,000 ML 42 ML IV ×2 (10:01→13:44)
[2023-10-02] MEDS: CELECOXIB 200 MG CAPSULE 400 MG PO (10:01)
[2023-10-02] MEDS: VANCOMYCIN 1,500 MG/300 ML PIGGYBACK 200 MG IV (10:02)
--- NOTE | 2023-10-02 10:06 | PM.PREOP ---
Pre-operative Note Interval Note History & Physical reviewed/Exam performed by Physician: Yes Changes to H&P: No
--- NOTE | 2023-10-02 10:07 | PM.OP.1 ---
Operative Date/Time/Diagnoses Date of procedure: 10/02/23 Time of procedure: 11:00 Pre-op diagnosis: left knee OA Post-op diagnosis: same Procedure & Clinicians Procedure: left total knee revision Same procedure as scheduled: Yes Indications: The patient has had progressively worsening left knee pain with radiographic changes consistent with progressive lateral compartment arthritis. He has a history of left knee medial compartment arthroplasty in the past. Non-operative management has failed and the patient has requested total knee replacement. The risks, benefits and alternatives to surgery were discussed with the patient prior to proceeding. Risks discussed included, but were not limited to, failure to relieve pain, stiffness, infection, nerve damage, deep venous thrombosis, pulmonary embolism, stroke, coma, heart attack, permanent paralysis and , as well as the potential need for eventual revision of the prosthetic. Surgeon: Marietta Pickering Senior Behavioral Scientist: Flynn Malin Anesthesia Type: General, Spinal and Peripheral nerve block Operative Notes Findings: Significant synovitis, no evidence of loosening, no obvious infection, adequate bone, adequate range motion Closure Type: primary Specimen(s): none sent Prosthetic devices, grafts, tissues, transplants, or devices: Journey PCS to size 8 femur, size 6 tibia, +11 poly, 38 mm patella Estimated Blood Loss (mL): 250 Blood products transfused: none Tourniquet time (min): 137 Procedure in detail: The patient was seen in the pre-operative area, where the patient identified the left knee as the operative site and this was marked with my initials. The patient received pre-operative antibiotics, and was taken to the operating room and placed on the operative table in the supine position. After satisfactory anesthesia, a scheduling representative out was performed. The left leg was encircled with a tourniquet about the proximal thigh, and the leg was prepared from the toes to the tourniquet with ChloroPrep in the usual fashion and draped through sterile drapes. The leg was elevated and exsanguinated with Eschmark bandage and the tourniquet inflated to [250] mmHg pressure. A PA was used during the procedure and was essential for intraoperative retraction and safe implantation of the components. The knee was approached through an approximately 22 cm incision centered over the patella and carried into the knee through a medial parapatellar arthrotomy. The capsule was opened and a portion of the lateral meniscus was resected and the ACL and PCL were released. Osteophytes were removed. Soft tissue was carefully mobilized around the patella the patella was measured with a caliper. Bone was resected from the patella and the patellar height was reconstituted with up an appropriate sized patellar component. A cover was then placed on the patella. Some scar tissue was carefully released. Pins were placed for Cori navigation in the femur and tibia. The knee was meticulously mapped with the unicompartment knee replacement in place. It was placed through a range of motion and we got values for stressed and unstressed range of motion. A plan was taken and developed. The unicompartment knee replacement component was removed. There was minimal bone loss. A minimal amount of bone needed to be resected from the medial side. We also resected bone from the lateral side. Robotic navigation was used for the distal femoral resection. It looked like an appropriate distal femoral cut and the cut was made without difficulty. The rotation of the punch guide was carefully assessed and the appropriate size femoral guide was placed on the distal femur and finishing cuts were made. There was no evidence of notching. The anterior, posterior and chamfer cuts were then made. The posterior osteophytes and soft tissues were then removed. The posterior capsule was injected with part of a mixture of 60 ml 0.25% Marcaine mixed with 20 ml Exparel for post operative pain control. The remainder of this mixture was injected into the capsule and subcutaneous tissues during cement curing. The tibia I checked the tibial cut and with a minimal cystic cut on the tibia after I would remove the component it was at an appropriate level. I used a saw to debulk the lateral side. The misael was then used for removing and finishing the tibial cut. The rotation was assessed. The patient was placed in extension residual medial and lateral meniscus as well as any residual bone was carefully resected. [No] additional tibia was resected. Hemostasis was achieved especially posteriorly. Additional local was injected into the posterior capsule. The extension gap was assessed and appeared appropriate for about a 10 or 11. The femoral component was trial was placed and the notch was finished. Trial tibial and femoral components were then placed and the knee placed through a range of motion. Range of motion was [0-130], with good stability throughout the range. The trials were then removed, and the tibia was finished. The bone was prepared with pulsatile lavage, and dried with a sponge. Cement was applied and the final prosthetics placed. Excess cement was removed during and after cement curing. A brief Betadine soak was performed. After confirming there was no extruded cement posteriorly, the final tibial insert was placed. The knee was copiously irrigated and the tourniquet deflated. Hemostasis was obtained with the [Aquamantys system]. The capsule was closed with interrupted # 1 Vicryl. The subcutaneous layer was closed with barbed sutures, and the skin with a running 3-0 V-Lock suture and skin matthew. An Aquacel Ag dressing was applied and the patient was taken to recovery having tolerated the procedure well. Complications: none Post-operative Condition: stable Disposition: Acute Care Plan for aftercare: The patient will be maintained on a standard total knee replacement protocol with weight bearing as tolerated. The patient will receive aspirin and sequential compression devices for DVT prophylaxis. The patient will be discharged home when safe for the home environment. He had substantial problems with preoperative bradycardia. The plan is to admit him to the hospital. Anticipate he will need to be in the hospital 1-3 days depending upon his clinical course and his cardiac issues.
--- NOTE | 2023-10-02 10:52 | SUR.PREOP ---
Block start time [1037] . Monitoring initiated and maintained throughout procedure. Oxygen and medications given per anesthesiologist instructions. 103 Patient remained stable throughout procedure, no adverse reactions noted. Block end time [1047].
[2023-10-02] MEDS: TRANEXAMIC ACID 1,000 MG VIAL 1000 MG INJ ×2 (11:11→13:38)
[2023-10-02] MEDS: CEFAZOLIN 2 GM/100 ML PREMIX 100 ML IV ×2 (11:14→18:25)
[2023-10-02] MEDS: BUPIVACAINE 0.25% (PF) 60 ML, EPINEPHrine 0.3 MG INJ (11:38)
--- NOTE | 2023-10-02 11:40 | SUR.OPER ---
Supine on padded OR bed. Pillow under head, arms secured on padded armboards <90 degree abduction. Safety belt across torso. Non-operative leg secured with tape over blanket over lower leg. Operative leg secured in DeMayo/Dominic/Nathe positioner. Foam padded brace at thigh of operative leg.
[2023-10-02] MEDS: BUPIVACAINE LIPOSOME 266 MG/20 ML VIAL INJ (13:47)
[2023-10-02] MEDS: LACTATED RINGERS 1,000 ML 100 ML IV (15:51)
--- NOTE | 2023-10-02 16:41 | OT.IP.EVAL ---
Current Diagnoses Unilateral primary osteoarthritis, left knee (10/02/23) Presence of unspecified artificial knee joint (10/02/23) Surgery Performed Operation Date: 10/02/23 10:45 Actual Procedures p Left Knee Arthroplasty Revision(Left) - Marietta Pickering MD Past Medical History (Last Reviewed 10/02/23 @ 10:04 by Wanda Self, RN) Aortic stenosis Bradycardia CKD (chronic kidney disease) stage 3, GFR 30-59 ml/min Encounter for subsequent annual wellness visit (AWV) in Medicare patient Gout (~2017) Hearing loss (~1959) Heart murmur History of COVID-19 (~2019) History of elevated PSA (~2009) HLD (hyperlipidemia) Hx of nephrolithotomy with removal of calculi Hypertension Hyperthyroidism Hypothyroidism (acquired) Lesion of right [employer] [place] kidney Lumbar radiculopathy LAM on CPAP Prostate cancer (~2019) Sleep apnea (~1999) Smoldering multiple myeloma (~2021) Stress incontinence 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 Thyroid cancer (~1999) Surgical History (Last Reviewed 10/02/23 @ 10:04 by Wanda Self, DEANN) Anesthesia History of kidney surgery (11/10/20) History of partial knee replacement (~2014) History of prostatectomy (~2019) History of shoulder surgery (~1977) Hx of bilateral cataract extraction (2023) Hx of hernia repair Occupational Therapy Inpatient Evaluation/Re-Eval M1 PT/OT-IP Prior Functional Status Start: 10/02/23 16:45 Freq: NEEDED Status: Active Protocol: Document 10/02/23 16:45 [facility] (Rec: 10/02/23 16:54 [facility] [id number]) Medical Review Prior Functional Status Communication Independent Mobility and Gait Use of cane at all times. Activities of Daily Living and IADL's Pt's having to assist with shoes and socks especially for his right foot as pt has difficulty with his right knee as well. Social History Household Members spouse Living Arrangements House Number of Floors (Floors) One Floor Number of Stairs To Enter/Railing? 3 steps with wide hand rails. Home Environment Standard Height Toilet,Walk in Shower,Built-In Shower Seat Home Equipment Front Wheel Walker,Straight Cane,Hand Held Shower,Lift Recliner,Grab Bars Near Toilet ,Grab Bars In Shower Additional Social History Comment Pt has a adjustable bed. M2 OT-IP Current Condition Start: 10/02/23 16:45 Freq: Status: Active Protocol: Document 10/02/23 16:45 [facility] (Rec: 10/02/23 16:54 [facility] [id number]) Occupational Therapy Current Condition Current Condition Evaluation Date 10/02/23 Treatment Diagnosis S/P L TKA Diagnosis Onset Date 10/02/23 M3 OT- IP Subjective and Pain Start: 10/02/23 16:45 Freq: Status: Active Protocol: Document 10/02/23 16:45 [facility] (Rec: 10/02/23 16:54 [facility] [id number]) OT- Subjective Occupational Therapy Visit Type Type Initial Evaluation Visit Start Time 16:13 Visit Stop Time 16:41 Occupational Therapy Visit Comments Patient Comments Pt agreed to get up. Patient/Caregiver Goals TO g o home. OT Pain Assessment Pain When Pain Assessed At Rest Pain Present Pain Present Denied Pain M4 OT- IP ADL's Start: 10/02/23 16:45 Freq: Status: Active Protocol: Document 10/02/23 16:45 [facility] (Rec: 10/02/23 16:54 [facility] [id number]) OT XEO-Paka-Ffisbwy Comments OT Self-Feeding Comments NOt at meal time, no issues anticipated. OT ADL-Grooming Comments OT Grooming Comments Not performed. OT ADL-Oral Care Comments Oral Care Comments Not performed. OT ADL-Dressing General Eval Lower Body Dressing Ability Maximum Assistance Comments OT Dressing Comments Assist for socks. Able to show pt LB dressing equipment. Pt states his to assist and has slip on shoes. OT ADL-Toileting Comments OT Toileting Comments Suggested use of urinal at night as pt has approx 30ft to get to the bathroom. OT ADL-Bathing Comments OT Bathing Comments Pt's to assist. M5 OT- IP IADL's Start: 10/02/23 16:45 Freq: Status: Active Protocol: Document 10/02/23 16:45 [facility] (Rec: 10/02/23 16:54 [facility] [id number]) OT-Instrumental Activities of Daily Living Deficits IADL Deficits Identified No Deficits Home Safety Awareness Awareness of Need for Assistance at Home Good Awareness Ability to Problem Solve Emergency Able to Problem Solve Situations Home Safety Comments Pt has a supportive to assist with his needs. Meal Preparation Meal Preparation Caregiver Provides Assist Cigarette Machine Operator Cigarette Machine Operator Caregiver Provides Assist M6 OT- IP Functional Cognition Start: 10/02/23 16:45 Freq: Status: Active Protocol: Document 10/02/23 16:45 [facility] (Rec: 10/02/23 16:54 [facility] [id number]) Cognitive Factors Limiting Selfcare Function Cognitive Ability Level of Alertness Alert,Drowsy Patient Orientation Name,Age,Birthday,Month,Date, Year,Day of Week,Place, Situation Attention Span Ability Capable of Focused Attention, Capable of Sustained Attention Ability to Follow Commands Able to Follow One Step Commands Cognitive Comments Cognitive Assessment Comments Pt able to follow commands for ADL and mobility needs. Pt still a little groggy from just having surgery this morning. OT- Vision and Hearing OT- Hearing Assessment OT- Hearing Assessment Hearing Impaired OT- Vision Assessment Visual Acuity Glasses For Reading M7 OT- IP Mobility and Balance Start: 10/02/23 16:45 Freq: Status: Active Protocol: Document 10/02/23 16:45 [facility] (Rec: 10/02/23 16:54 [facility] [id number]) OT- Bed Mobility Assessment Supine to Sit Supine to Sit Assist Standby Assistance Sit to Supine Sit to Supine Assist Standby Assistance OT-Transfer Assessment Sit to and From Stand Sit to and from Stand Contact Guard Assistance Transfers Transfer Ability Contact Guard Assistance Technique Transfer Destination Bed Transfer Technique Stand Step Pivot Devices Transfer Assistive Devices Gait Belt,Front Wheeled Walker Comments Mobility Comments SBA, pt able to actively move his LLE to the edge of the bed . CGA to stand to the FWW and able to take steps in the room . OT- Balance Assessment Sitting Balance and Reactions Static Sitting Balance Ability Good Dynamic Sitting Balance Ability Good Standing Balance and Reactions Static Standing Balance Ability Good Dynamic Standing Balance Ability Fair M8 OT- IP Objective Assessments Start: 10/02/23 16:45 Freq: Status: Active Protocol: Document 10/02/23 16:45 [facility] (Rec: 10/02/23 16:54 [facility] [id number]) OT Gross Range of Motion Upper Extremity Range of Motion Assessment Within Functional Limits OT Strength Upper Extremity Strength Assessment Within Functional Limits M9 OT- IP Assessment and Plan Start: 10/02/23 16:45 Freq: Status: Active Protocol: Document 10/02/23 16:45 [facility] (Rec: 10/02/23 16:54 [facility] [id number]) OT Summary Assessment and Plan Potential Rehabilitation Potential Excellent Analytic Complexity at Evaluation Low Summary OT Impairments Balance,Functional Mobility, Dressing,Toileting,Bathing, Toilet Transfers,Shower Transfers Progress Towards Goals Progressing Toward Goals Assessment Summary Pt low complexity and main barriers are steps and a feeling a little groggy from having surgery this morning. Pt doing well so far and looking to go home tomorrow when medically stable. Pt able to get up with SBA and take a few steps in the room with CGA and FWW. Pt states already has outpt PT scheduled. Goals Dressing Goal Minimal Assistance Toileting Goal Independent Bathing Goal Standby Assistance Toilet Transfer Goal Independent Shower Transfer Goal Standby Assistance Days to Meet Goals 2 Frequency of Treatment Frequency Of Treatment Once a Day Treatment Plan OT Treatment Plan ADL Training,Functional Mobility,Patient/Family Education,Discharge Planning Discharge Recommendations OT Discharge Recommendations Home with Assistance, Outpatient PT Home Equipment Needs LB dressing equipment Transportation Needs at Discharge Private Vehicle
--- NOTE | 2023-10-02 16:54 | PC.NURSE ---
Pt to room 213 via bed from PACU. Pt is awake, alert, and oriented. IVF infusing as ordered. SCD's on and running. Bed alarm on for safety. Pt has been up to stand with OT and then back to bed with SCD's placed back on. Pt oriented to room, call light, bed controls, and tv controls. Pt agrees to call for assistance as needed and to not get up without assistance.
[2023-10-02] MEDS: PRAVASTATIN 20 MG TABLET 40 MG PO (17:16)
[2023-10-02] MEDS: DOCUSATE 100 MG CAPSULE PO (20:57)
[2023-10-02] MEDS: ASPIRIN EC 81 MG TABLET PO (20:57)
[2023-10-03] VITALS: BP 117/64; PULSE 56; RESP 20; TEMP 36.1; O2SAT 94
[2023-10-03] MEDS: LACTATED RINGERS 1,000 ML 100 ML IV (00:19)
[2023-10-03] MEDS: CEFAZOLIN 2 GM/100 ML PREMIX 100 ML IV (03:30)
[2023-10-03 05:31] LABS: Hematocrit 37.2 % (41-53); Hemoglobin 12.6 g/dL (13.5-17.5)
[2023-10-03] MEDS: LEVOTHYROXINE 88 MCG TABLET PO (05:49)
--- NOTE | 2023-10-03 07:16 | PM.DS.1 ---
History of Present Illness History of Present Illness Date Patient Seen: 10/03/23 Time Patient Seen: 07:16 Chief complaint: Left TKA robot Narrative: Operative Date/Time/Diagnoses Date of procedure: 10/02/23 Time of procedure: 11:00 Pre-op diagnosis: left knee OA Post-op diagnosis: same Procedure & Clinicians Procedure: left total knee revision Same procedure as scheduled: Yes Indications: The patient has had progressively worsening left knee pain with radiographic changes consistent with progressive lateral compartment arthritis. He has a history of left knee medial compartment arthroplasty in the past. Non-operative management has failed and the patient has requested total knee replacement. The risks, benefits and alternatives to surgery were discussed with the patient prior to proceeding. Risks discussed included, but were not limited to, failure to relieve pain, stiffness, infection, nerve damage, deep venous thrombosis, pulmonary embolism, stroke, coma, heart attack, permanent paralysis and , as well as the potential need for eventual revision of the prosthetic. Surgeon: Marietta Pickering Electric Spot Welder: Flynn Malin Anesthesia Type: General, Spinal and Peripheral nerve block Operative Notes Findings: Significant synovitis, no evidence of loosening, no obvious infection, adequate bone, adequate range motion Closure Type: primary Specimen(s): none sent Prosthetic devices, grafts, tissues, transplants, or devices: Journey PCS to size 8 femur, size 6 tibia, +11 poly, 38 mm patella Estimated Blood Loss (mL): 250 Blood products transfused: none Tourniquet time (min): 137 Discharge Providers Provider Date of admission: 10/02/23 08:46 Discharge Date: 10/03/23 Primary care physician: Mor Park DO Consults: 10/02/23 06:00 Consult to Anesthesiology Routine Comment: Consulting Provider: Anesthesiologist Reason for consultation: Regional block for post operative pain control Has provider been notified: No 10/02/23 15:33 Consult to Discharge Planning Routine Comment: Consult to Occupational Therapy Evaluate & Treat Comment: Physician Instructions: Evaluate and treat Consult to Physical Therapy Evaluate & Treat Comment: Physician Instructions: postop TKA protocol Discharge provider: Lorena Lomas PA-C Summary Hospital Course Discharge Diagnosis: Left knee osteoarthritis, s/p revision from medial UKA to total knee arthroplasty Hospital Course: Mr Reis's hospital course was unremarkable. On the morning of POD# 1, he was feeling well and wanted to go home. He had not been OOB since surgery. He was eating and voiding with difficulty and he reported very little pain - 1-2/10. Op note mentions bradycardia perioperatively; in review of pt care notes, it appears that he has had pulse rates down to 41 bpm. He tells me that his HR is 'all over the place' and he is asymptomatic. His antihypertensives to not appear to be contributing to his low heart rate. Exam Vital Signs (past 8 hours): - 10/03/23 00:00 Temperature 97 F L Pulse Rate 56 L Respiratory Rate 20 Blood Pressure 117/64 Pulse Oximetry 94 Oxygen Flow Rate 0 Oxygen Delivery Method Room Air Oxygen Flow Rate 0 Narrative Exam Narrative: 5/5 strength in hip flexors, quadriceps, hamstrings, DF, PF, EHL on left. Sensation to light touch intact throughout LLE, calf soft and compressible. PHILIP wrap over dressing CDI. 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 Hx of nephrolithotomy with removal of calculi Heart murmur Hypothyroidism (acquired) Sleep apnea (~1999) Gout (~2017) Hearing loss (~1960) History of elevated PSA (~2009) Hyperthyroidism Hypertension Smoldering multiple myeloma (~2021) Thyroid cancer (~1999) Prostate cancer (~2019) Surgical History History of kidney surgery (11/10/20) Hx of bilateral cataract extraction (2023) Hx of hernia repair Anesthesia History of shoulder surgery (~1977) History of partial knee replacement (~2014) History of prostatectomy (~2019) Family History Grandfather History of heart disease Grandmother Dementia Sister Thyroid disease Social History marital status: number of children: 3 household members: spouse occupational status: previously employed Smoking Status: Never smoker alcohol intake: current caffeine: Yes Type(s) of exercise: other frequency: daily Discharge Assessment & Plan Assessment and Plan Assessment: Left knee osteoarthritis, s/p revision from medial UKA to total knee arthroplasty Plan of Treatment: Discharge home after PT if PT agrees. Multimodal pain control, ASA 81mg BID x 6 weeks for VTE prophylaxis, outpt PT, f/u in office in 2 weeks as scheduled. Discharge Plan Discharge Plan Patient Disposition: Home Provider Discharge Comment: Pt has postop meds at home. Discharge orders & Medications Prescriptions: Continued clotrimazole-betamethasone 1-0.05 % cream 1 applic topical BID Qty: 45 11RF (DME) c-pap supplies See Rx Instructions .Route .MEDSUPPLY Qty: 1 0RF Rx Instructions: mask to pt liking, tubing, filters and all other supplies needed levothyroxine 88 mcg tablet 88 mcg PO DAILY Qty: 90 3RF amlodipine 10 mg tablet 10 mg PO DAILY Qty: 90 3RF pravastatin 40 mg tablet 40 mg PO QPM olmesartan [Benicar] 40 mg tablet 40 mg PO QPM acetaminophen [Tylenol 8 Hour] 650 mg tablet extended release 650 mg PO Q12H PRN (Reason: Pain) tramadol 50 mg tablet 50 mg PO BID PRN (Reason: pain) Qty: 42 1RF trazodone 50 mg tablet 50 mg PO BEDTIME PRN (Reason: insomnia) Qty: 60 2RF Follow up/Referrals: Mor Park DO [Primary Care Provider] - Marietta Pickering MD [Physician] - 10/12/23 11:30 am (Follow up w/ Lorena Lomas PA-C, at [facility] office in [place].) Diet/Activity/Treatments Diet: Diet as Tolerated Activity: Weightbearing as tolerated to left leg. Cold/Heat Therapy: Ice to knee as needed for pain. Skin/Wound/Dressing Care Report to your healthcare provider any signs of infection, such as:: chills, fever, night sweats, unusual drainage and unusual redness Dressing: May remove PHILIP wrap and shower on 10/05/2023. Leave dressing in place until follow up in office. No bathing or otherwise soaking incision. Call the office if the dressing becomes saturated inside. Visit Report/Discharge Packet Instructions: DI for Knee Replacement, DI for Prescription Opioid Use Stand Alone Forms: Patient Portal/API, Stroke Signs & Symptoms, Surgery Discharge Discharge Data Primary Care Provider: Mor Park VTE Deep Vein Thrombosis/Pulmonary Embolism Present on Admission: No
[2023-10-03] MEDS: ASPIRIN EC 81 MG TABLET PO (09:07)
[2023-10-03] MEDS: ACETAMINOPHEN 325 MG TABLET 650 MG PO (09:07)
[2023-10-03] MEDS: AMLODIPINE 5 MG TABLET 10 MG PO (09:07)
[2023-10-03] MEDS: DOCUSATE 100 MG CAPSULE PO (09:07)
--- NOTE | 2023-10-03 09:30 | PT.IIE ---
Current Diagnoses Unilateral primary osteoarthritis, left knee (10/02/23) Presence of unspecified artificial knee joint (10/02/23) Surgery Performed Operation Date: 10/02/23 10:45 Actual Procedures p Left Knee Arthroplasty Revision(Left) - Marietta Pickering MD Surgical History (Last Reviewed 10/02/23 @ 10:04 by Wanda Self, RN) Anesthesia History of kidney surgery (11/10/20) History of partial knee replacement (~2014) History of prostatectomy (~2019) History of shoulder surgery (~1977) Hx of bilateral cataract extraction (2023) Hx of hernia repair Medical History (Last Reviewed 10/02/23 @ 10:04 by Wanda Self, DEANN) Aortic stenosis Bradycardia CKD (chronic kidney disease) stage 3, GFR 30-59 ml/min Encounter for subsequent annual wellness visit (AWV) in Medicare patient Gout (~2017) Hearing loss (~1959) Heart murmur History of COVID-19 (~2019) History of elevated PSA (~2009) HLD (hyperlipidemia) Hx of nephrolithotomy with removal of calculi Hypertension Hyperthyroidism Hypothyroidism (acquired) Lesion of right [place] kidney Lumbar radiculopathy LAM on CPAP Prostate cancer (~2019) Sleep apnea (~1999) Smoldering multiple myeloma (~2021) Stress incontinence 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 Activities of Daily Living and IADL's Pt's having to assist with shoes and socks especailly for his right foot. Social History Household Members spouse Living Arrangements House Number of Floors (Floors) One Floor Number of Stairs To Enter/Railing? 3 steps with wide hand rails. Home Environment Standard Height Toilet,Walk in Shower,Built-In Shower Seat Home Equipment Front Wheel Walker,Straight Cane,Hand Held Shower,Lift Recliner,Grab Bars Near Toilet ,Grab Bars In Shower Additional Social History Comment Pt has a adjustable bed. M1 PT/OT-IP Prior Functional Status Start: 10/03/23 12:49 Freq: NEEDED Status: Active Protocol: Document 10/03/23 09:30 AB (Rec: 10/03/23 13:05 AB [id number]) Medical Review Prior Functional Status Medical History Reviewed Yes Communication able to make needs known Mobility and Gait pt staed that he was modified independent with all mobilities and ambulation with a SPC Activities of Daily Living and IADL's per OT note: Pt's having to assist with shoes and socks especailly for his right foot . Social History Household Members spouse Living Arrangements House Number of Floors (Floors) One Floor Number of Stairs To Enter/Railing? 3 steps wide rails to enter and can only hold on to one rail at a time Home Environment Standard Height Toilet,Walk in Shower,Built-In Shower Seat Home Equipment Front Wheel Walker,Straight Cane,Shower Seat without Backrest,Hand Held Shower,Lift Recliner,Grab Bars Near Toilet,Grab Bars In Shower Additional Social History Comment pt has an adjustable bed M2 PT-IP Current Condition Start: 10/03/23 12:49 Freq: NEEDED Status: Active Protocol: Document 10/03/23 09:30 AB (Rec: 10/03/23 13:05 AB [id number]) Physical Therapy Current Condition Current Condition Evaluation Date 10/03/23 Treatment Diagnosis s/p L TKA revision; difficulty in walking Onset Date 10/02/23 M3 PT-IP Subjective Start: 10/03/23 12:49 Freq: NEEDED Status: Active Protocol: Document 10/03/23 09:30 AB (Rec: 10/03/23 13:05 AB [id number]) Subjective Physical Therapy Visit Type Type Initial Evaluation Visit Start Time 09:30 Visit Stop Time 10:30 Number of DAIRY FROZEN MANAGER Visits 0 Physical Therapy Visit Comments Patient Comments agreeable to do PT Therapy Pain Assessment Pain When Pain Assessed At Rest Location Left Knee Intensity 2 Scale Used Numeric (0 - 10) Pain Management Techniques Apply Cold,Distraction, Modification of Treatment,Re- positioning,Timing of Activity with Medications M4 PT-IP Mobility and Gait Start: 10/03/23 12:49 Freq: NEEDED Status: Active Protocol: Document 10/03/23 09:30 AB (Rec: 10/03/23 13:05 AB [id number]) PT-Bed Mobility Assessment Supine to Sit Supine to Sit Standby Assistance Sit to Supine Sit to Supine Standby Assistance PT-Transfer Assessment Sit to and From Stand Sit to and from Stand Contact Guard Assistance Equipment Transfer Assistive Device Gait Belt,Front Wheeled Walker Orthotic/Prosthetic Devices or Brace: No Transfers Transfer Destination Bed,Chair Transfer Technique ambulated Transfer Ability Level of Assist Contact Guard Assistance Comments Mobility Comments pt supine in bed and agreeable to do PT. spouse in room. obtained PLOF and home set up from pt and spouse. pt is TANANA and needs repetitions of instructions and questions. reviewed post-op folder with pt and educated on HEP. pt completed supine to sit SBA. able to sit on EOB SBA. completed sit to stand CGA and cues on techniques. pt with unsteady initial standing and transition to FWW. pt sat back on EOB. educated on sit<> stand techniques. pt completed x 2 reps CGA and cues. pt ambulated to the chair using fWW ~ 12 ft. caregiver training conducted. educated spouse on how to use safety belt and how to assist pt. spouse was able to put safety belt on and assisted pt with sit to stand. pt ambulated to EOB using FWW with spouse assisting and completed bed mobility SBA. educated spouse on how to assist pt if needed for bed mobility. pt completed sit to stand from EOB CGA and ambulated using FWW with assisting towards the stairs ~ 100 ft. pt sat on w/c to rest . educated pt and spouse on stair climbing. pt completed up/down steps holding on to L rail with B hands min A and sposue was able to assist. assisted pt back to his room. ambulated from w/c to chair using FWW CGA. positioned pt on the chair. ice pack provided. call light and table placed within reach. Gait Assessment Gait Gait Assistance Required: Contact Guard Assist Distance (Feet) 100 Able to Maintain Weight Bearing Status Yes During Gait Assistive Devices Assistive Device Gait Belt,Front Wheeled Walker Orthotic/Prosthetic Devices or Brace: No Gait Deviations General Gait Pattern Antalgic,Decreased Stride Length,Decreased Feet Clearance Factors Limiting Gait Function Factors Limiting Gait Function Decreased Activity Tolerance, Decreased Sensation,Decreased Strength,Difficulty Following Directions,Limited Range of Motion,Pain,Poor Balance,Poor Safety Awareness Stair Climbing Assessment Evaluation Level of Assist On Stairs Minimal Assistance Devices Stair Climbing Assistive Devices Left Railing Technique/Endurance Stair Climbing Direction Ascend and Descend Stair Climbing Technique Step to Step Number of Steps Climbed 3 Query Text: Stair Climbing Set # Repetitions (reps) 1 PT-Balance Assessment Sitting Balance and Reactions Static Sitting Balance Ability Good Dynamic Sitting Balance Ability Good Standing Balance and Reactions Static Standing Balance Ability Fair Dynamic Standing Balance Ability Fair Device Used FWW M5 PT-IP Objective Assessments Start: 10/03/23 12:49 Freq: NEEDED Status: Active Protocol: Document 10/03/23 09:30 AB (Rec: 10/03/23 13:05 [id number]) Orientation Orientation/Cognition Level of Alertness Alert Orientation Name Language Function Ability Hard of Hearing Safety Awareness Decreased Safety Awareness Memory Description Short Term Impaired,Care Home Impaired Gross Range of Motion Lower Extremity ROM Assessment Left Impaired Impairments L knee flexion: ~ 70 deg L knee extension: ~ 10 deg less to 0 Strength Lower Extremity Strength Assessment Left Impaired Hip 4-/5 Knee 4-/5 Muscle Tone Muscle Tone WNL Yes M6 PT-IP Treatment Start: 10/03/23 12:49 Freq: NEEDED Status: Active Protocol: Document 10/03/23 09:30 AB (Rec: 10/03/23 13:05 [id number]) Physical Therapy Treatment Education Education Provided Precautions,Weight Bearing Status,Post-Op Packet,Safety M7 PT-IP Assessment and Plan Start: 10/03/23 12:49 Freq: NEEDED Status: Active Protocol: Document 10/03/23 09:30 AB (Rec: 10/03/23 13:05 [id number]) PT Summary Assessment and Plan Potential Rehabilitation Potential Good Status of Condition at Evaluation Stable Summary Impairments Pain,ROM,Strength,Balance, Coordination,Sensation,Tone, Cognition,Bed Mobility, Transfers,Gait,Activity Tolerance Assessment Summary pt is a 78 y/o M s/p L TKA revision POD 1. pt is LLE WBAT. pt requiring CGA with transfers and ambulation using FWW and min A for stair climbing using L rail. caregiver training conducted and spouse was able to assist pt safely. pt may go home when medically stable. pt has outpt PT set up. Goals Bed Mobility Goal Independent Transfer Goal Independent,Front Wheeled Walker Gait Goal Independent,Front Wheel Walker Gait Distance 300 Other Goals up/down 3 steps L rail ascending mod I Days to Meet Goals 5 Frequency of Treatment Frequency Of Treatment Twice a Day Treatment Plan Physical Therapy Treatment Plan Bed Mobility Training,Transfer Training,Gait Training, Therapeutic Exercise,Balance Retraining,Post Op Education, Discharge Planning,Hot or Cold Pack,Neuromuscular Re-ed, Coordination Retraining,Manual Therapy Weight Bearing Status Weight Bearing Status Weight Bear as Tolerated Allowed Weight Bearing Amount (enter % LLE WBAT or #) (%) Recommendations To Nursing Amount of Assist Needed 1 Person Assist Discharge Recommendations PT Discharge Recommendations Home with Assistance, Outpatient PT Transportation Needs at Discharge Private Vehicle
[2023-10-03 10:11] VITALS: BP 134/68; PULSE 57; RESP 18; TEMP 36.4; O2SAT 95
--- NOTE | 2023-10-03 10:43 | OT.IP.TRT ---
Current Diagnoses Unilateral primary osteoarthritis, left knee (10/02/23) Presence of unspecified artificial knee joint (10/02/23) Surgery Performed Operation Date: 10/02/23 10:45 Actual Procedures p Left Knee Arthroplasty Revision(Left) - Marietta Pickering MD Occupational Therapy Treatment Note M2 OT-IP Current Condition Start: 10/02/23 16:45 Freq: Status: Active Protocol: Document 10/02/23 16:45 [facility] (Rec: 10/02/23 16:54 [facility] [id number]) Occupational Therapy Current Condition Current Condition Evaluation Date 10/02/23 Treatment Diagnosis S/P L TKA Diagnosis Onset Date 10/02/23 M3 OT- IP Subjective and Pain Start: 10/02/23 16:45 Freq: Status: Active Protocol: Document 10/03/23 10:46 [facility] (Rec: 10/03/23 10:54 [facility] [id number]) OT- Subjective Occupational Therapy Visit Type Type Treatment Note Visit Start Time 10:31 Visit Stop Time 10:43 Occupational Therapy Visit Comments Patient Comments Pt agreed to get dressed and his present in the room. Patient/Caregiver Goals To go home. OT Pain Assessment Pain When Pain Assessed At Rest Pain Present Pain Present Pain Reported Location Left Knee Description Aching M4 OT- IP ADL's Start: 10/02/23 16:45 Freq: Status: Active Protocol: Document 10/03/23 10:46 [facility] (Rec: 10/03/23 10:54 [facility] [id number]) OT [id number] Comments OT Self-Feeding Comments NOt at meal time, no issues anticipated. OT ADL-Grooming Comments OT Grooming Comments Not performed. OT ADL-Oral Care Comments Oral Care Comments Not performed. OT ADL-Dressing General Eval Upper Body Dressing Ability Independent Lower Body Dressing Ability Moderate Assistance Comments OT Dressing Comments Assist for socks and to get his shoes on. VC for pt not to twist his knee while getting dressed and that his to assist or use of LB equipment would be best. OT ADL-Toileting Comments OT Toileting Comments Pt's aware to get up with pt to use the bathroom or use of urinal. OT ADL-Bathing Comments OT Bathing Comments Went over care of bandage for showering needs. M5 OT- IP IADL's Start: 10/02/23 16:45 Freq: Status: Active Protocol: Document 10/02/23 16:45 [facility] (Rec: 10/02/23 16:54 [facility] [id number]) OT-Instrumental Activities of Daily Living Deficits IADL Deficits Identified No Deficits Home Safety Awareness Awareness of Need for Assistance at Home Good Awareness Ability to Problem Solve Emergency Able to Problem Solve Situations Home Safety Comments Pt has a supportive to assist with his needs. Meal Preparation Meal Preparation Caregiver Provides Assist Hand Mexican Food Maker Hand Mexican Food Maker Caregiver Provides Assist M6 OT- IP Functional Cognition Start: 10/02/23 16:45 Freq: Status: Active Protocol: Document 10/03/23 10:46 [facility] (Rec: 10/03/23 10:54 [facility] [id number]) Cognitive Factors Limiting Selfcare Function Cognitive Ability Memory Description Short Term Impaired Cognitive Comments Cognitive Assessment Comments Pt needing vc for safety reminders and pt's able to appropriate remind pt of safety needs. Pt did not recall getting out of bed with OT yesterday after surgery. M7 OT- IP Mobility and Balance Start: 10/02/23 16:45 Freq: Status: Active Protocol: Document 10/03/23 10:46 [facility] (Rec: 10/03/23 10:54 [facility] [id number]) OT-Transfer Assessment Sit to and From Stand Sit to and from Stand Contact Guard Assistance, Minimal Assistance Comments Mobility Comments CGA to JAMES to stand from the recliner especially from lower surfaces. OT- Balance Assessment Sitting Balance and Reactions Static Sitting Balance Ability Good Dynamic Sitting Balance Ability Good Standing Balance and Reactions Static Standing Balance Ability Good M8 OT- IP Objective Assessments Start: 10/02/23 16:45 Freq: Status: Active Protocol: Document 10/02/23 16:45 [facility] (Rec: 10/02/23 16:54 [facility] [id number]) OT Gross Range of Motion Upper Extremity Range of Motion Assessment Within Functional Limits OT Strength Upper Extremity Strength Assessment Within Functional Limits M9 OT- IP Assessment and Plan Start: 10/02/23 16:45 Freq: Status: Active Protocol: Document 10/03/23 10:46 [facility] (Rec: 10/03/23 10:54 [facility] [id number]) OT Summary Assessment and Plan Potential Rehabilitation Potential Excellent Analytic Complexity at Evaluation Low Summary OT Impairments Balance,Functional Mobility, Dressing,Toileting,Bathing, Toilet Transfers,Shower Transfers Progress Towards Goals Progressing Toward Goals Assessment Summary Able to do over OT needs with pt and his for ADL needs. Pt to go home with his and attend outpt PT. Goals Dressing Goal Minimal Assistance Toileting Goal Independent Bathing Goal Standby Assistance Toilet Transfer Goal Independent Shower Transfer Goal Standby Assistance Days to Meet Goals 1 Frequency of Treatment Frequency Of Treatment Once a Day Treatment Plan OT Treatment Plan ADL Training,Functional Mobility,Patient/Family Education,Discharge Planning Discharge Recommendations OT Discharge Recommendations Home with Assistance, Outpatient PT Home Equipment Needs LB dressing equipment Transportation Needs at Discharge Private Vehicle
[2023-10-03] MEDS: TRAMADOL 50 MG TABLET PO (10:59)
--- NOTE | 2023-10-03 12:43 | CM.DANOTE ---
Discharge Planning/Care Management CM Discharge Assessment Start: 10/03/23 12:41 Freq: Status: Discharge Protocol: Document 10/03/23 12:41 HANNAH (Rec: 10/03/23 12:43 [facility] [id number]) Discharge Planning Assessment Assigned Adult Psychiatrist ALAN [place] DPOA/Assigned Designee Name Paula Reis, spouse Contact Information [phone] Health Care Proxy/Next of Kin Doris () Health Care Proxy or [phone] Emergency Contact Name Rich (son) Emergency Contact Advance Directives? No Advance Directives on File No History Provided By Patient,Medical Record Prior Living Arrangements House Household Members spouse Type of transporation used prior to Drives own vehicle admit Independent with ADL's Yes Is patient alert and oriented? Yes Needs Assistance With Home Chores / Shopping Patient/Family Preference OP PT Therapy,OP OT Therapy Barriers to Discharge No Comment S/p Left TKA. Patient planned for return home with spouse to assist and therapies have cleared patient for this plan. No needs from this CM team identified. Discharge Plan Home Transportation Arrangement Family Referrals Initiated None needed
== END 2023-10-03 11:15 | disposition home or self-care (01) | DRG 468 ==
PROVIDERS: Admitting Provider Orthopaedic Surgery; Family Provider Pediatrics; PCP Family Medicine; Referring Provider Orthopaedic Surgery; Visit Provider Orthopaedic Surgery
PROC: 0SRD0J9 Replacement of Left Knee Joint with Synthetic Substitute, Cemented, Open Approach (ICD-10-PCS; principal; 2023-10-02 10:45)
DX: M17.12 Unilateral primary osteoarthritis, left knee (principal); R00.1 Bradycardia, unspecified; I44.0 Atrioventricular block, first degree; M65.9 Synovitis and tenosynovitis, unspecified; E03.9 Hypothyroidism, unspecified; E78.5 Hyperlipidemia, unspecified; I10 Essential (primary) hypertension; Z96.659 Presence of unspecified artificial knee joint
CPT/HCPCS: 36415; 64450; 73560; 80048; 84153; 85014; 85018; 87070; 87075; 87176; 87205; 87801; 97161; 97165; 97530; 97535; C1776; C9290; J0171; J0690; J1100; J1170; J2405; J2704; J3010

== ENCOUNTER → 2023-11-14 06:01 | Outpatient (CLI) | payer MEDICARE, OTHER, SELFPAY ==
[2023-10-02 15:33] VITALS: BMI 28.0
[2023-11-14 07:27] LABS: Estimated Glomerular Filt Rate 51 mL/min (>60)
--- NOTE | 2023-11-14 08:00 | DI.CT.S_ITS ---
PROCEDURE: CT ABDOMEN RENAL PROTOCOL INDICATIONS: Follow-up right renal lesion TECHNIQUE: Optional 5 mm thick noncontrast images acquired from the diaphragm to the iliac crests. After the administration of intravenous contrast, 5 mm thick images again acquired from the diaphragm to the iliac crests in the arterial and urographic phases. 5 mm thick coronal and sagittal reformats were then acquired. For radiation dose reduction, the following was used: automated exposure control, adjustment of mA and/or kV according to patient size. COMPARISON: [facility], CT, CT ABDOMEN RENAL PROTOCOL, 03/21/2023, 11:46. FINDINGS: Image quality: Diagnostic. Kidneys and Ureters: Unchanged appearance of right kidney post procedure to treat a renal cell carcinoma. Stable scarring and probable subjacent fat necrosis. No recurrent mass identified. Calcifications along the residual thin rim of tissue posteriorly, unchanged. Left kidney is unremarkable with no masses or hydronephrosis. OTHER: Lower chest: Unremarkable. Liver: No solid mass. Cirrhosis. Gallbladder: Numerous small calcified gallstones. No gallbladder wall thickening. Biliary ducts: No biliary dilation. Pancreas: No ductal dilation. Spleen: Size is within normal limits. Numerous calcified splenic granulomata. Adrenal Glands: No adrenal nodules. Stomach and Bowel: Normal colonic caliber, without significant wall thickening. Peritoneum: No abnormal intraperitoneal fluid. No free air. Ventral Wall: No hernia. Abdominal Nodes: No retroperitoneal or mesenteric adenopathy by size criteria. Vessels: Aorta and inferior vena cava are normal in size. Bones: No aggressive osseous abnormality. Incidental note made of the presence of a posterior disc protrusion at L2-L3, increased compared to the previous study. This is of uncertain significance. IMPRESSION: Stable appearance of right kidney consistent with post treatment changes without recurrent malignant mass. Cirrhosis. No evidence of metastatic disease in the abdomen. Incidental note made of and increased disc protrusion at L2-L3. Dictated by: Rashad Diego M.D. on 11/14/2023 at 8:09 Approved by: Rashad Diego M.D. on 11/14/2023 at 8:20
== END ==
PROVIDERS: Family Provider Pediatrics; PCP Family Medicine; Referring Provider Urology; Visit Provider Urology
DX: C61 Malignant neoplasm of prostate (principal); N28.9 Disorder of kidney and ureter, unspecified; K74.60 Unspecified cirrhosis of liver; M51.26 Other intervertebral disc displacement, lumbar region; K80.20 Calculus of gallbladder without cholecystitis without obstruction; N99.89 Other postprocedural complications and disorders of genitourinary system; N39.3 Stress incontinence (female) (male); Z85.528 Personal history of other malignant neoplasm of kidney; Z90.79 Acquired absence of other genital organ(s)
CPT/HCPCS: 36415; 74170; 81002; 82565; 99214; Q9967

== ENCOUNTER → 2023-11-27 13:02 | Outpatient (CLI) | payer MEDICARE, OTHER, SELFPAY ==
[2023-10-02 15:33] VITALS: BMI 28.0
--- NOTE | 2023-11-27 13:05 | DI.ECHO.S_ITS ---
Version: 1 Study ID: [id number] [place] [address] Name: MARKUS SAUCEDO Study Date: 11/27/2023, 3: 19 PM : 1945 BP: 133 / 74 mmHg Gender: Male Height: 72 in Age: 78 Years Weight: 200 lb BSA: 2.13 mA? Ordering: KOTA CASEY Referring: KOTA CASEY Clinician: Karissa Bettencourt Reason For Study: Valvular Disease History: Summary Statements 1. The left ventricular contractility is normal. Estimated ejection fraction is greater than 60% with no segmental wall motion abnormalities. Mild concentric left ventricular Kurichety. Unable to comment on diastolic function. 2. The right ventricle contractility is normal. 3. Biatrial enlargement noted. 4. Mild to moderate aortic valvular stenosis with mean gradient of 19.8 mmHg and dimensionless index of 0.36. Mild aortic insufficiency. 5. No obvious intracardiac shunts. 6. No obvious intracardiac masses nor thrombi. 7. No hemodynamically significant pericardial effusion. Conclusion: Normal biventricular systolic function with mild to moderate aortic valvular stenosis and mild insufficiency. Procedure: A two-dimensional transthoracic echocardiogram with color flow and Doppler was performed. The study quality was technically adequate. Comparison is made with the echocardiogram of 09/25/2022. The patient was in a bradycardic rhythm during the exam. The heart rate ranged between 41-58 bpm during the study. The patient had occasional PACs during the exam. Left Ventricle: The left ventricle is normal in size. There is mild concentric left ventricular hypertrophy. The ejection fraction is estimated to be 60-65%. Right Ventricle: The right ventricle is normal in size and function. Atria: The left atrium is moderately dilated. The right atrium is severely dilated. There is no Doppler evidence for an interatrial shunt. Mitral Valve: The mitral valve leaflets are slightly calcified. There is mild mitral annular calcification. There is trace mitral regurgitation. Aortic Valve: The aortic valve is trileaflet. There is mild to moderately reduced leaflet mobility. There is mild to moderate aortic stenosis. The peak aortic velocity is 3.0 m/sec. The peak aortic velocity on the previous exam was 3.06 m/sec. The aortic valve mean gradient is 19.8 mmHg. Previous AV mean gradient was 20.8 mmHg. This is unchanged compared to the previous study. There is mild aortic regurgitation. Tricuspid Valve: The tricuspid valve leaflets are thin and pliable. There is a trace or physiologic amount of tricuspid regurgitation. Pulmonic Valve: The pulmonic valve leaflets are thin and pliable; valve motion is normal. There is a trace or physiologic amount of pulmonic regurgitation. Great Vessels: The aortic root is normal size. The ascending aorta is normal in size. The aortic arch is normal in size. The pulmonary artery is not well visualized, but is probably normal size. The inferior vena cava was not well visualized. Pericardium/ Pleura: There is an anterior echo-free space consistent with a fat pad. There is no pericardial effusion. There is no pleural effusion. 2D and M-Mode Measurements and Calculations LVIDd: 5.4 cm AoV Openin.92 cm LVIDs: 3.6 cm LVOT diam: 2.26 cm IVSd: 1.11 cm Ao root diam: 3.2 cm LVPWd: 1.01 cm asc Aorta Diam: 3.5 cm LV torre. diameter/BSA (cm/m^2): 2.5 Ao Arch Diam (Prox Trans): 3.3 cm LV sys. diameter/BSA (cm/m^2): 1.71 EPSS: 1.13 cm TAPSE: 2.6 cm LA A4 area: 32.7 stem roller? RA area: 24.0 stem roller? LA A2 area: 24.4 stem roller? RA long axis: 5.5 cm LA length (vol): 7.2 cm RA vol: 88.6 ml LA vol: 94.3 ml RA : 41.6 ml/mA? LA vol index: 44.3 ml/mA? Doppler Measurements and Calculations Ao V2 max: 299.1 cm/sec LVOT Max Amado: 108.4 cm/sec Ao V2 mean: 208.9 cm/sec LV V1 max P.7 mmHg Ao V2 VTI: 70.2 cm LV V1 VTI: 25.0 cm Ao max P.8 mmHg SV(LVOT): 99.9 ml Ao mean P.8 mmHg GERTRUDIS(I,D): 1.42 stem roller? GERTRUDIS(V,D): 1.45 stem roller? GERTRUDIS indexed to BSA (cm^2/m^2): 0.67 sev ratio: 0.36 AI P1/2t: 698.8 msec AI dec slope: 173.0 cm/secA? MV E max amado: 64.5 cm/sec MV dec time: 0.25 sec MV A max amado: 57.0 cm/sec MV E/A: 1.13 TR max amado: 216.4 cm/sec TR max P.8 mmHg Electronically signed by: Kota Casey 11/28/2023, 7: 54 AM
== END ==
PROVIDERS: Family Provider Pediatrics; PCP Family Medicine; Referring Provider Internal Medicine; Visit Provider Internal Medicine
DX: I34.81 Nonrheumatic mitral (valve) annulus calcification (principal); I35.2 Nonrheumatic aortic (valve) stenosis with insufficiency
CPT/HCPCS: 93306

== ENCOUNTER 2023-12-25 12:47 | Outpatient (CLI) | payer MEDICARE, OTHER, SELFPAY ==
[2023-10-02 15:33] VITALS: BMI 28.0
[2023-12-25] VITALS (9 sets, daily range): BP systolic 123–147; BP diastolic 58–70; PULSE 53–60; RESP 15–20; TEMP 36.6; O2SAT 96–98
--- NOTE | 2023-12-25 13:00 | DI.RAD.S_ITS ---
PROCEDURE: PAIN L/S TRANSFORAMINAL INJECT INDICATIONS: Lumbar radiculopathy COMPARISON: [facility], , PAIN L/S TRANSFORAMINAL INJECT, 05/01/2023, 15:54. FINDINGS: Fluoroscopic spot filming was performed to verify placement of spinal needles at the left L4/L5 level(s), as labeled on the films. Appropriate location(s) of the needle tip(s) was confirmed by injection of iodinated contrast. IMPRESSION: Needle placement at left L4-L5 level with contrast injection. Approved by: Cari Tobias M.D.,Ph.D. on 12/26/2023 at 2:01
[2023-12-25] MEDS: MIDAZOLAM 2 MG/2 ML VIAL 1 MG IV (15:09)
[2023-12-25] MEDS: BETAMETHASONE 30 MG/5 ML MDV 12 MG INJ (15:15)
[2023-12-25] MEDS: iopamidoL 15 ML VIAL 3 ML INJ (15:15)
[2023-12-25] MEDS: BUPIVACAINE 0.25% (PF) VIAL 2 ML INJ (15:16)
[2023-12-25] MEDS: DEXAMETHASONE 10 MG/ML VIAL INJ (15:16)
--- NOTE | 2023-12-25 15:29 | P.PCN_ITS ---
Date/Time/Diagnoses Date of procedure: 12/25/23 Time of procedure: 15:30 Pre-procedure diagnosis: 1. HNP WITH RADICULAR FEATURES, 2. MULTILEVEL CENTRAL STENOSIS, Post-procedure diagnosis: same Procedure Notes Procedure: 1. FLUOROSCOPICALLY GUIDED CONTRAST CONTROLLED INTERLAMINAR EPIDURAL STEROID INJECTION - L3/4 Indications: Mino is referred by Dr. Park for treatment of Bilateral Foraminal Stenosis L>R LE symptoms. Physician: Ashwin Landers Total Fluoroscopy time (seconds): 10 Total sedation minutes: 12 Complications: none Procedure in detail & Post-procedure care: FINDINGS Multilevel Central Spinal Stenosis with Nerve Root Compression DESCRIPTION OF PROCEDURE Fluoroscopically guided, contrast-controlled L3/4 translaminar epidural steroid injection. Following review of allergy and review of potential side effects and complications, including, but not necessarily limited to, infection, allergic reaction, local tissue breakdown, temporary as well as permanent nerve injury, paralysis, stroke and possible , the patient indicated that the patient understood and agreed to proceed. An informed consent document was signed by the patient, witnessed by a nurse, and placed in the patient's chart. Additionally, other treatment options including modalities, medications, and physical therapy were reviewed with the patient. After review of previous anaesthesic history and IV conscious sedation the patient was deemed safe to proceed with today?s procedure with IV conscious sedation as ASA class II designation. Safety time-out was performed to confirm patient ID, procedure to be performed and site of procedure. IV sedation was accomplished with a combination of 1mg of Versed was administered by the RN after DO order, titrated to patient comfort during the course of the procedure while the patient remained responsive to all verbal commands. In the prone position, following sterile prep and drape of the lumbar region, the L3/4 translaminar space was identified fluoroscopically. The skin was anesthetized via a 25-gauge, 1.5-inch needle with 1% lidocaine solution. At this point, a 22-gauge short bevel spinal needle was atraumatically introduced and advanced under fluoroscopic guidance into the region of the L3/4 translaminar space. Depth was confirmed on lateral view. Radiological data, including multiple fluoroscopic views of the lumbar spine, reveal a spinal needle at the L3/4 translaminar space. Lateral views then show placement of the needle in the epidural space. Subsequent views show contrast material flowing superiorly and inferiorly in the epidural space. No vascular or intrathecal uptake is observed. At this point, using loss of resistance technique with saline and air, the epidural space was entered. This was confirmed following negative aspiration with injection of approximately 1.5 cc of Isovue 200, showing excellent epidural flow without vascular or intrathecal uptake. At this point, 1cc of 1% lidocaine solution combined with 2cc or 10mg of dexamethasone and 6mg of betamethasone was injected without incident. The patient tolerated the procedure well without signs or symptoms of complications prior to transfer to the recovery area continued monitoring without incident. The patient was then transferred to the recovery area where they were observed for an appropriate period of time after the injection. The patient reported a VAS score of 6 prior to the procedure and a post- procedure VAS of 0. POST OP INSTRUCTIONS The patient was provided a Pain Log to continue to record their response to the target-specific procedure prior to follow-up visit with their referring physician. Additionally, specific post-injection care instructions and a contact number to our office were provided if concerns arise regarding possible complications associated with the procedure are suspected.
== END 2023-12-25 15:55 | disposition home or self-care (01) ==
LOC: RAD 12:48
PROVIDERS: Family Provider Pediatrics; PCP Family Medicine; Referring Provider Physical Medicine & Rehabilitation; Visit Provider Physical Medicine & Rehabilitation
DX: M51.16 Intervertebral disc disorders with radiculopathy, lumbar region (principal); M48.061 Spinal stenosis, lumbar region without neurogenic claudication
CPT/HCPCS: 62323; 64483; 99152; J0702; J1100; J2250; J3490

== ENCOUNTER → 2024-04-14 10:42 | Outpatient (CLI) | payer MEDICARE, OTHER, SELFPAY ==
[2023-10-02 15:33] VITALS: BMI 28.0
--- NOTE | 2024-04-14 10:46 | EKG_ITS ---
[address] [address] [place] [address] Test Date: 2024-04-14 Pat Name: Mino Reis Department: [facility] Room: Gender: Male Dogman/Woman: ANKUR : 1945 Requested By: Order Number: [id number] Reading MD: Immanuel Sanchez Measurements Intervals [place] Rate: 60 P: 32 MA: 284 QRS: 35 QRSD: 100 T: 26 QT: 416 QTc: 416 Interpretive Statements Atrial-paced rhythm with prolonged AV conduction Electronically Signed On 04-14-2024 17:11:01 PST by Immanuel Sanchez
[2024-04-14 11:42] LABS: Add Manual Diff / Slide Review NO; Basophils Absolute Auto 0 /uL (0-100); Basophils Percent Auto 0.3 % (0-2); Eosinophils Absolute Auto 200 /uL (0-450); Eosinophils Percent Auto 3.5 % (2-4); Hematocrit 42.6 % (41-53); Hemoglobin 14.6 g/dL (13.5-17.5); Lymphocytes Absolute Auto 1500 /uL (1100-4500); Mean Corpuscular HGB Conc 34.3 % (30-36); Mean Corpuscular Hemoglobin 34.1 PG (26-34); Mean Corpuscular Volume 99.3 fL (80-100); Monocytes Absolute Auto 500 /uL (0-900); Monocytes Percent Auto 8.9 % (3-14); Neutrophils Absolute Auto 3300 /uL (1500-7000); Neutrophils Percent Auto 59.3 % (50-75); Platelet Count 126 X10^3/uL (150-400); Red Blood Cell Count 4.29 X10^6/uL (4.5-5.9); Red Cell Distribution Width 15.3 % (11.6-14.8); White Blood Cell Count 5.5 X10^3/uL (4.5-11.0)
[2024-04-14 11:54] LABS: BUN Creatinine Ratio 13.4 (6-22); Blood Urea Nitrogen 19 mg/dL (9-20); Calcium 8.9 mg/dL (8.4-10.2); Carbon Dioxide 21 mmol/L (22-32); Chloride 111 mmol/L (98-107); Estimated Glomerular Filt Rate 50 mL/min (>60); Glucose 82 mg/dL (80-110); HEMOLYSIS < 15 (0-50); Hemoglobin A1C% w Est Avg Glu 4.8 % (4.0-6.0); Potassium 4.2 mmol/L (3.4-5.1); Sodium 138 mmol/L (137-145)
[2024-04-14 11:55] LABS: Appearance Urine UA CLEAR; Bilirubin Urine UA NEGATIVE (NEGATIVE); Color Urine UA YELLOW; Glucose Urine UA NEGATIVE (Negative); Ketones Urine UA NEGATIVE (NEGATIVE); Leukocyte Esterase Urine UA NEGATIVE (NEGATIVE); Nitrite Urine UA NEGATIVE (Negative); Occult Blood Urine UA NEGATIVE (Negative); Protein Urine UA TRACE (Negative); Specific Gravity Urine UA 1.025 (1.000-1.035); Urobilinogen Urine UA 0.2 E.U./dL (0.2); pH Urine UA 5.5 (4.5-8.0)
[2024-04-14 12:00] LABS: Urine Volume 10mL (spun)
[2024-04-14 12:01] LABS: Bacteria Urine None Seen; Culture Indicated Urine Cult Not Indicated; RBC Urine None Seen (0-5/HPF); Squamous Epithelial Cell Urine None Seen (0-5/HPF); WBC Urine None Seen (0-5/HPF)
== END ==
PROVIDERS: Family Provider Pediatrics; PCP Family Medicine; Referring Provider Orthopaedic Surgery; Visit Provider Orthopaedic Surgery
DX: Z01.818 Encounter for other preprocedural examination (principal); R73.9 Hyperglycemia, unspecified; Z01.812 Encounter for preprocedural laboratory examination; N39.0 Urinary tract infection, site not specified
CPT/HCPCS: 36415; 80048; 81001; 83036; 85025; 93005

== ENCOUNTER 2024-05-13 10:42 | Day surgery (SDC) | payer MEDICARE, OTHER, SELFPAY ==
[2023-10-02 15:33] VITALS: BMI 28.0
[2024-04-30 08:46] VITALS: BMI 28.0
[2024-05-13] VITALS (13 sets, daily range): BP systolic 91–133; BP diastolic 48–79; PULSE 59–71; RESP 12–20; TEMP 35.9–36.9; O2SAT 94–97; BMI 28.0
--- NOTE | 2024-05-13 06:00 | DI.RAD.S_ITS ---
PROCEDURE: XR KNEE RT 2V INDICATIONS: Right total knee arthroplasty TECHNIQUE: 2 view of the knee acquired. COMPARISON: No prior x-rays of the right knee FINDINGS / IMPRESSION: Patient is status post knee joint arthroplasty which if the surgery was recent, expected postoperative changes, soft tissue gas and soft tissue swelling. Otherwise follow-up is needed. Hardware components are in expected positions. Visualized bony structures are intact. Dictated by: Cristino Ramirez RR Interpreted: Felipe Browne MD on 05/13/2024 at 16:13 Transcribed by: SAVANNAH on 05/13/2024 at 16:17 Approved by: Felipe Browne M.D. on 05/15/2024 at 9:00
[2024-05-13] MEDS: VANCOMYCIN 1,000 MG in SODIUM CHLORIDE 0.9% 250 ML 250 MG IV (11:24)
[2024-05-13] MEDS: ACETAMINOPHEN 325 MG TABLET 975 MG PO (11:25)
[2024-05-13] MEDS: LACTATED RINGERS 1,000 ML 42 ML IV (11:25)
--- NOTE | 2024-05-13 11:52 | PM.PREOP ---
Pre-operative Note Interval Note History & Physical reviewed/Exam performed by Physician: Yes Changes to H&P: No
--- NOTE | 2024-05-13 11:53 | P.OP_ITS ---
Operative Date/Time/Diagnoses Date of procedure: 05/13/24 Time of procedure: 12:10 Pre-op diagnosis: right knee OA Post-op diagnosis: same Procedure & Clinicians Procedure: right total knee arthroplasty Same procedure as scheduled: Yes Indications: The patient has had progressively worsening right knee pain with radiographic changes consistent with arthritis. Non-operative management has failed and the patient has requested total knee replacement. The risks, benefits and alternatives to surgery were discussed with the patient prior to proceeding. Risks discussed included, but were not limited to, failure to relieve pain, stiffness, infection, nerve damage, deep venous thrombosis, pulmonary embolism, stroke, coma, heart attack, permanent paralysis and , as well as the potential need for eventual revision of the prosthetic. Surgeon: Marietta Pickering Pipe Caulker: Lorena Lomas Anesthesia Type: Spinal and Peripheral nerve block Operative Notes Findings: Severe right knee OA with a large tense joint effusion, significant destruction in the medial compartment Closure Type: primary Specimen(s): none sent Prosthetic devices, grafts, tissues, transplants, or devices: Pickering and nephadam flores BCs us to size 8 femur, size 6 tibia, +9 poly, 38 mm patella Estimated Blood Loss (mL): 250 Blood products transfused: none Tourniquet time (min): 86 Procedure in detail: The patient was seen in the pre-operative area, where the patient identified the right knee as the operative site and this was marked with my initials. The patient received pre-operative antibiotics, and was taken to the operating room and placed on the operative table in the supine position. After satisfactory anesthesia, a realtime court reporter out was performed. The right leg was encircled with a tourniquet about the proximal thigh, and the leg was prepared from the toes to the tourniquet with ChloroPrep in the usual fashion and draped through sterile drapes. The leg was elevated and exsanguinated with Eschmark bandage and the tourniquet inflated to [250] mmHg pressure. A PA was used during the procedure and was essential for intraoperative retraction and safe implantation of the components. The knee was approached through an approximately 18 cm incision centered over the right knee patella and carried into the knee through a medial parapatellar arthrotomy. Portion of the medial and lateral meniscus was resected. Soft tissue was carefully mobilized around the patella the patella was measured with a caliper. Bone was resected from the patella and the patellar height was reconstituted with up an appropriate sized patellar component. A cover was then placed on the patella. A small amount of additional medial and lateral meniscus was resected. Cori robotic pins were placed in the femur and the adjustable tibial guide was pinned to the tibia. Knee was meticulously mapped for an optimum plan in order to allow full range of motion. A plan was carefully taken and developed the optimize range of motion and stability. The robotic assisted bur was used for the distal femoral cut. It looked like an appropriate distal femoral cut and the cut was made without difficulty. The rotation was assessed and the appropriate size femoral guide was placed on the distal femur and finishing cuts were made. There was no evidence of notching. The anterior, posterior and chamfer cuts were then made. The posterior osteophytes and soft tissues were then removed. The posterior capsule was injected with part of a mixture of 60 ml 0.25% Marcaine mixed with 20 ml Exparel for post operative pain control. The remainder of this mixture was injected into the capsule and subcutaneous tissues during cement curing. The tibial guide was meticulously navigated. Proximal tibial cut was made without difficulty. The rotation was assessed. The patient was placed in extension residual medial and lateral meniscus as well as any residual bone was carefully resected. [No] additional tibia was resected. Hemostasis was achieved especially posteriorly. Additional local was injected into the posterior capsule. The extension gap was assessed. The femoral component was trial was placed and the notch was finished. Trial tibial and femoral components were then placed and the knee placed through a range of motion. Range of motion was [0-130], with good stability throughout the range. The trials were then removed, and the tibia was finished. The bone was prepared with pulsatile lavage, and dried with a sponge. Cement was applied and the final prosthetics placed. Excess cement was removed during and after cement curing. A brief Betadine soak was performed. After confirming there was no extruded cement posteriorly, the final tibial insert was placed. The knee was copiously irrigated and the tourniquet deflated. Hemostasis was obtained with the Bovie cautery. The capsule was closed with interrupted # 1 suture. The subcutaneous layer was closed with barbed sutures, and the skin with a running 3-0 V-Lock suture and Surgical glue. An Aquacel Ag dressing was applied and the patient was taken to recovery having tolerated the procedure well. Complications: none Post-operative Condition: stable Disposition: Acute Care Plan for aftercare: The patient will be maintained on a standard total knee replacement protocol with weight bearing as tolerated. The patient will receive aspirin and sequential compression devices for DVT prophylaxis. The patient will be discharged home when safe for the home environment.
[2024-05-13] MEDS: TRANEXAMIC ACID 1,000 MG VIAL 2000 MG INJ (12:28)
[2024-05-13] MEDS: CEFAZOLIN 2 GM/100 ML PREMIX 100 ML IV ×2 (12:33→20:47)
[2024-05-13] MEDS: BUPIVACAINE 0.25% W/ EPI 30 ML VIAL 60 ML INJ (14:09)
[2024-05-13] MEDS: BUPIVACAINE LIPOSOME 266 MG/20 ML VIAL INJ (14:10)
[2024-05-13] MEDS: LACTATED RINGERS 1,000 ML 100 ML IV (15:51)
--- NOTE | 2024-05-13 16:02 | PC.NURSE ---
Pt arrived on unit at 1530 and was transferred onto the inpatient bed. Patient is alert, denying any current pain, and resting comfortably in bed. Pt oriented to room and has call light within reach. Spouse is at bedside.
[2024-05-13] MEDS: ACETAMINOPHEN 325 MG TABLET 650 MG PO ×2 (16:23→20:18)
[2024-05-13] MEDS: PRAVASTATIN 20 MG TABLET 40 MG PO (17:20)
[2024-05-13] MEDS: LOSARTAN 50 MG TABLET 100 MG PO (17:20)
[2024-05-13] MEDS: DOCUSATE 100 MG CAPSULE PO (20:18)
[2024-05-13] MEDS: ASPIRIN EC 81 MG TABLET PO (20:18)
[2024-05-13] MEDS: TRAMADOL 50 MG TABLET PO (23:43)
[2024-05-14] VITALS: BP 118/61; PULSE 60; RESP 19; TEMP 36.4; O2SAT 96
[2024-05-14] MEDS: OXYCODONE IR 5 MG TABLET PO (01:55)
[2024-05-14 04:00] VITALS: BP 143/80; PULSE 86; RESP 19; TEMP 36.8; O2SAT 94
[2024-05-14] MEDS: CEFAZOLIN 2 GM/100 ML PREMIX 100 ML IV (04:04)
[2024-05-14] MEDS: ACETAMINOPHEN 325 MG TABLET 650 MG PO ×2 (04:04→10:40)
[2024-05-14] MEDS: ONDANSETRON 4 MG/2 ML INJ IV (05:10)
[2024-05-14] MEDS: LEVOTHYROXINE 88 MCG TABLET PO (05:35)
[2024-05-14 05:48] LABS: Hematocrit 38.9 % (41-53); Hemoglobin 13.1 g/dL (13.5-17.5)
[2024-05-14 08:00] VITALS: BP 130/79; PULSE 60; RESP 15; TEMP 36.7; O2SAT 95
--- NOTE | 2024-05-14 08:12 | P.DS_ITS ---
History of Present Illness History of Present Illness Date Patient Seen: 05/14/24 Time Patient Seen: 07:45 Chief complaint: R TKA *OPB* Narrative: The patient has had progressively worsening right knee pain with radiographic changes consistent with arthritis. Non-operative management has failed and the patient has requested total knee replacement. The risks, benefits and alternatives to surgery were discussed with the patient prior to proceeding. Risks discussed included, but were not limited to, failure to relieve pain, stiffness, infection, nerve damage, deep venous thrombosis, pulmonary embolism, stroke, coma, heart attack, permanent paralysis and , as well as the potential need for eventual revision of the prosthetic. Discharge Providers Provider Discharge Date: 05/14/24 Primary care physician: Mor Park DO Consults: 04/30/24 09:45 Consult to Anesthesiology Routine Comment: Consulting Provider: Anesthesiologist Reason for consultation: Surgeon request for cardiac. 05/13/24 06:00 Consult to Anesthesiology Routine Comment: Consulting Provider: Anesthesiologist Reason for consultation: Regional block for post operative pain control Has provider been notified: No 05/13/24 15:34 Consult to Discharge Planning Routine Comment: Consult to Occupational Therapy Evaluate & Treat Comment: Physician Instructions: Evaluate and treat Consult to Physical Therapy Evaluate & Treat Comment: Physician Instructions: postop TKA protocol Discharge provider: Goldy Leal PA-C Summary Hospital Course Discharge Diagnosis: right knee OA Hospital Course: Procedure: right total knee arthroplasty Same procedure as scheduled: Yes Surgeon: Marietta Pickering Marketing Database Analyst: Lorena Lomas Anesthesia Type: Spinal and Peripheral nerve block Operative Notes Findings: Severe right knee OA with a large tense joint effusion, significant destruction in the medial compartment Closure Type: primary Specimen(s): none sent Prosthetic devices, grafts, tissues, transplants, or devices: Pickering and nephew journey BCs us to size 8 femur, size 6 tibia, +9 poly, 38 mm patella Estimated Blood Loss (mL): 250 Blood products transfused: none Tourniquet time (min): 86 Status at Discharge Cognitive/behavioral status at discharge: oriented Functional status at discharge: uses cane/walker Overall status at discharge: patient is back to baseline Time Spent with Patient Time spent: Less than 30 minutes Exam Vital Signs (past 8 hours): - 05/14/24 04:00 Temperature 98.3 F Pulse Rate 86 Respiratory Rate 19 Blood Pressure 143/80 H Pulse Oximetry 94 Oxygen Delivery Method Room Air Oxygen Flow Rate 0 Narrative Exam Narrative: Patient's pain is controlled with oral medication. ?Pain is localized to surgical site. ?Patient declines any new numbness or tingling at the surgical extremity. ?Patient denies any shortness of breath, dizziness, light-headedness, vomiting, fever or chills. Patient states he was nauseous last night but under control with medication. 5/5 strength in hip flexors, quadriceps, hamstrings, DF, PF, EHL bilaterally. Sensation to light touch intact throughout BLE. Calves soft, compressible, nontender. Dressing placed intraoperatively CDI. Resp Effort & Inspection: normal respiratory effort and able to speak in complete sentences Objective Labs 05/14/24 05:32 Labs: Laboratory Results - last 24 hr 05/14/24 05:32 Hgb 13.1 L Hct 38.9 L PFSH Medical History (Updated 04/30/24 @ 09:39 by Funmi Albert RN) Pacemaker (03/13/24) Elevated serum creatinine History of COVID-19 (~2019) Bradycardia HLD (hyperlipidemia) Encounter for subsequent annual wellness visit (AWV) in Medicare patient LAM on CPAP Lesion of right [place] kidney Aortic stenosis CKD (chronic kidney disease) stage 3, GFR 30-59 ml/min Lumbar radiculopathy Stress incontinence 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 Hx of nephrolithotomy with removal of calculi Heart murmur Hypothyroidism (acquired) Sleep apnea (~1999) Gout (~2017) Hearing loss (~1960) History of elevated PSA (~2009) Hyperthyroidism Hypertension Smoldering multiple myeloma (~2021) Thyroid cancer (~1999) Prostate cancer (~2019) Surgical History (Updated 04/30/24 @ 10:12 by Funmi Albert, RN) Hx of partial nephrectomy History of kidney surgery (11/10/20) Hx of bilateral cataract extraction (2023) Hx of hernia repair Anesthesia History of shoulder surgery (~1977) History of partial knee replacement (~2014) History of prostatectomy (~2019) Family History Grandfather History of heart disease Grandmother Dementia Sister Thyroid disease Social History marital status: number of children: 3 household members: spouse occupational status: previously employed Smoking Status: Never smoker alcohol intake: current caffeine: Yes Type(s) of exercise: other frequency: daily Discharge Assessment & Plan Assessment and Plan Assessment: Status post right knee total arthroplasty Plan of Treatment: Discharge to home. ? Ambulate and weight bear as tolerated with assistive devices. ? Aspirin 81 mg twice a day for 6 weeks for DVT prevention. ? Baseline pain relief with acetaminophen 500mg every 4 hours as needed and ibuprofen 400 mg every 4 hours as needed. ?Patient has been prescribed tramadol 50 mg every 4 ?hours as needed for breakthrough pain and Zofran 4 mg Q 8 hours prn for postoperative nausea. ? Initiate physical therapy in the next 5-10 days. ? Keep dressing clean and dry. Keep dressing on until first office visit. If dressing becomes dirty or disrupted, replace with appropriate sized dressing. Follow up in clinic in 2 weeks for wound check. Contact clinic if there are any questions or concerns. Discharge Plan Discharge Plan Patient Disposition: Home Provider Discharge Comment: DC pending PT approval Discharge orders & Medications Discharge Orders: Discharge (Order); Ordered 05/14/24 Ordered By: Goldy Leal Prescriptions: Continued pravastatin 40 mg tablet 40 mg PO QPM Qty: 90 3RF clotrimazole-betamethasone 1-0.05 % cream 1 applic topical BID Qty: 45 11RF (DME) c-pap supplies See Rx Instructions .Route .MEDSUPPLY Qty: 1 0RF Rx Instructions: mask to pt liking, tubing, filters and all other supplies needed amlodipine 10 mg tablet 10 mg PO DAILY Qty: 90 3RF olmesartan [Benicar] 40 mg tablet 40 mg PO QPM ondansetron 4 mg Tablet,Disintegrating 4 mg PO Q6H PRN (Reason: Nausea) levothyroxine 88 mcg capsule 88 mcg PO DAILY Changed acetaminophen [Tylenol Extra Strength] 500 mg Tablet 500 mg PO Q4H PRN (Reason: Pain (Scale Score 4-6)) Qty: 120 0RF Follow up/Referrals: Mor Park DO [Primary Care Provider] - Diet/Activity/Treatments Diet: Diet as Tolerated Activity: Ambulate multiple times a day. Use a cane or walker as needed. Full weight on leg. Cold/Heat Therapy: Use ice multiple times a day. Skin/Wound/Dressing Care Skin care: Leave dressing on. Okay to shower Report to your healthcare provider any signs of infection, such as:: chills, fever, night sweats, unusual drainage and unusual redness Dressing: May shower. Leave dressing in place until follow up in office. No bathing or otherwise soaking incision. Call the office if the dressing becomes saturated inside. Visit Report/Discharge Packet Instructions: DI for Knee Replacement Stand Alone Forms: Patient Portal/API Discharge Data Primary Care Provider: Mor Park Attending Provider: Marietta Pickering VTE Deep Vein Thrombosis/Pulmonary Embolism Present on Admission: No
[2024-05-14] MEDS: TRAMADOL 50 MG TABLET PO (09:05)
[2024-05-14] MEDS: ASPIRIN EC 81 MG TABLET PO (09:05)
[2024-05-14] MEDS: AMLODIPINE 5 MG TABLET 10 MG PO (09:05)
[2024-05-14] MEDS: DOCUSATE 100 MG CAPSULE PO (09:05)
--- NOTE | 2024-05-14 10:38 | OT.IP.EVAL ---
Current Diagnoses Unilateral primary osteoarthritis, right knee (05/13/24) Surgery Performed Operation Date: 05/13/24 13:45 Actual Procedures p Total Knee Arthroplasty - Robot(Right) - Marietta Pickering MD Past Medical History (Last Updated 04/30/24 @ 09:39 by Funmi Albert, RN) Aortic stenosis Bradycardia CKD (chronic kidney disease) stage 3, GFR 30-59 ml/min Elevated serum creatinine Encounter for subsequent annual wellness visit (AWV) in Medicare patient Gout (~2017) Hearing loss (~1959) Heart murmur History of COVID-19 (~2019) History of elevated PSA (~2009) HLD (hyperlipidemia) Hx of nephrolithotomy with removal of calculi Hypertension Hyperthyroidism Hypothyroidism (acquired) Lesion of right [place] kidney Lumbar radiculopathy LAM on CPAP Pacemaker (03/13/24) Prostate cancer (~2019) Sleep apnea (~1999) Smoldering multiple myeloma (~2021) Stress incontinence 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 Thyroid cancer (~1999) Surgical History (Last Updated 04/30/24 @ 10:12 by Funmi Albert, DEANN) Anesthesia History of kidney surgery (11/10/20) History of partial knee replacement (~2014) History of prostatectomy (~2019) History of shoulder surgery (~1977) Hx of bilateral cataract extraction (2023) Hx of hernia repair Hx of partial nephrectomy Occupational Therapy Inpatient Evaluation/Re-Eval M1 PT/OT-IP Prior Functional Status Start: 05/14/24 10:53 Freq: NEEDED Status: Active Protocol: Document 05/14/24 10:55 [facility] (Rec: 05/14/24 11:10 [facility] [id number]) Medical Review Prior Functional Status Communication I Mobility and Gait Pt states used a SPC at times. Activities of Daily Living and IADL's Pt needing assist for socks. Prior Functional Level (Other details) Pt having recent shoulder fx and is in the sling. Social History Household Members spouse Living Arrangements House Number of Floors (Floors) One Floor Number of Stairs To Enter/Railing? 3 steps with wide rails. Home Environment Standard Height Toilet,Walk in Shower Home Equipment Front Wheel Walker,Straight Cane,Hand Held Shower,Long Handled Shoe Horn,Field Service Coordinator,Sock Aid,Lift Recliner,Grab Bars Near Toilet,Grab Bars In Shower Additional Social History Comment Pt has an adjustable bed. Pt had prior L TKA last year in which her recovered well. M2 OT-IP Current Condition Start: 05/14/24 10:53 Freq: Status: Active Protocol: Document 05/14/24 10:55 [facility] (Rec: 05/14/24 11:10 [facility] [id number]) Occupational Therapy Current Condition Current Condition Evaluation Date 05/14/24 Treatment Diagnosis S/P R TKA Diagnosis Onset Date 05/13/24 M3 OT- IP Subjective and Pain Start: 05/14/24 10:53 Freq: Status: Active Protocol: Document 05/14/24 10:55 [facility] (Rec: 05/14/24 11:10 [facility] [id number]) OT- Subjective Occupational Therapy Visit Type Type Initial Evaluation Visit Start Time 09:50 Visit Stop Time 10:28 Occupational Therapy Visit Comments Patient Comments Pt agreed to get up to use the bathroom, get dresses and oral care needs. Patient/Caregiver Goals TO go home. OT Pain Assessment Pain When Pain Assessed At Rest Pain Present Pain Present Pain Reported Location Right knee Intensity 5 Scale Used Numeric (0 - 10) M4 OT- IP ADL's Start: 05/14/24 10:53 Freq: Status: Active Protocol: Document 05/14/24 10:55 [facility] (Rec: 05/14/24 11:10 [facility] [id number]) OT RGO-Mcdg-Jrjquuw General Evaluation Self-Feeding Ability Independent OT ADL-Grooming General Evaluation Grooming Ability Independent Comments OT Grooming Comments While standing with FWW. OT ADL-Oral Care General Eval Areas of Assistance Retrieving/Set-Up of Items Comments Oral Care Comments Able to do while FWW at the sink. OT ADL-Dressing General Eval Upper Body Dressing Ability Standby Assistance Lower Body Dressing Ability Minimal Assistance Comments OT Dressing Comments Assist to help guide his RLE into the pants. Educated pt to dress the RLE first and take out last. Pt has LB dressing equipment at home. OT ADL-Toileting General Evaluation Toileting Ability Standby Assistance Comments OT Toileting Comments Pt able to sit on the toilet to urinate. Spoke of use of wet ones for wiping after BM. Educated if sitting for toileting needs to use a wash cloth to prevent spillage when urinating or use of urinal. OT ADL-Bathing Comments OT Bathing Comments Pt's aware to cover the dressing for showering needs. M5 OT- IP IADL's Start: 05/14/24 10:53 Freq: Status: Active Protocol: Document 05/14/24 10:55 [facility] (Rec: 05/14/24 11:10 [facility] [id number]) OT-Instrumental Activities of Daily Living Deficits IADL Deficits Identified Deficits Home Safety Awareness Awareness of Need for Assistance at Home Good Awareness Ability to Problem Solve Emergency Able to Problem Solve Situations Meal Preparation Meal Preparation Caregiver Provides Assist Commodity Specialist Commodity Specialist Caregiver Provides Assist M6 OT- IP Functional Cognition Start: 05/14/24 10:53 Freq: Status: Active Protocol: Document 05/14/24 10:55 [facility] (Rec: 05/14/24 11:10 [facility] [id number]) Cognitive Factors Limiting Selfcare Function Cognitive Ability Level of Alertness Alert Patient Orientation Name,Place,Situation Attention Span Ability Capable of Focused Attention, Capable of Sustained Attention Ability to Follow Commands Able to Follow One Step Commands Cognitive Comments Cognitive Assessment Comments Pt able to follow commands for ADL and mobility needs. Pt needing safety reminders for transitions when coming to stand. OT- Vision and Hearing OT- Hearing Assessment OT- Hearing Assessment Hearing Impaired OT- Vision Assessment Visual Acuity Glasses For Reading Visual Attentiveness WFL Occular Pursuits WFL Vision Assessment Comments Does not use his hearing aids. M7 OT- IP Mobility and Balance Start: 05/14/24 10:53 Freq: Status: Active Protocol: Document 05/14/24 10:55 [facility] (Rec: 05/14/24 11:10 [facility] [id number]) OT- Bed Mobility Assessment Supine to Sit Supine to Sit Assist Standby Assistance Scooting Scooting to Edge of Bed Standby Assistance OT-Transfer Assessment Sit to and From Stand Sit to and from Stand Minimal Assistance Transfers Transfer Ability Standby Assistance,Contact Guard Assistance Technique Transfer Destination Bed,Toilet Transfer Technique Stand Step Pivot Devices Transfer Assistive Devices Gait Belt,Front Wheeled Walker Comments Mobility Comments JAMES to stand from the recliner. Once up on the FWW CGA to close SBA. OT- Balance Assessment Sitting Balance and Reactions Static Sitting Balance Ability Normal Dynamic Sitting Balance Ability Normal Standing Balance and Reactions Static Standing Balance Ability Good Dynamic Standing Balance Ability Fair M8 OT- IP Objective Assessments Start: 05/14/24 10:53 Freq: Status: Active Protocol: Document 05/14/24 10:55 [facility] (Rec: 05/14/24 11:10 [facility] [id number]) OT Gross Range of Motion Upper Extremity Range of Motion Assessment Within Functional Limits OT Strength Upper Extremity Strength Assessment Within Functional Limits M9 OT- IP Assessment and Plan Start: 05/14/24 10:53 Freq: Status: Active Protocol: Document 05/14/24 10:55 [facility] (Rec: 05/14/24 11:10 [facility] [id number]) OT Summary Assessment and Plan Potential Rehabilitation Potential Excellent Analytic Complexity at Evaluation Low Summary OT Impairments Pain,Strength,Balance, Functional Mobility,Dressing, Toileting,Bathing,Toilet Transfers,Shower Transfers Progress Towards Goals Progressing Toward Goals Assessment Summary Pt low complexity and main barriers are pain, and difficulty with transitions from lower surfaces. Pt's in a sling but able to assist but will not be able to do any lifting. Pt to go home with assist and attend outpt PT. Goals Self-Feeding Goal Independent Grooming Goal Independent Dressing Goal Independent,Long Handled Shoe Horn,Field Service Coordinator,Sock Aid Toileting Goal Independent Bathing Goal Standby Assistance Toilet Transfer Goal Independent Shower Transfer Goal Standby Assistance Days to Meet Goals 5 Frequency of Treatment Other frequency 5x/week Treatment Plan OT Treatment Plan ADL Training,Functional Mobility,Patient/Family Education,Discharge Planning Discharge Recommendations OT Discharge Recommendations Home with Assistance, Outpatient PT Transportation Needs at Discharge Private Vehicle
--- NOTE | 2024-05-14 11:30 | PT.IIE ---
Current Diagnoses Unilateral primary osteoarthritis, right knee (05/13/24) Surgery Performed Operation Date: 05/13/24 13:45 Actual Procedures p Total Knee Arthroplasty - Robot(Right) - Marietta Pickering MD Surgical History (Last Updated 04/30/24 @ 10:12 by Funmi Albert, RN) Anesthesia History of kidney surgery (11/10/20) History of partial knee replacement (~2014) History of prostatectomy (~2019) History of shoulder surgery (~1977) Hx of bilateral cataract extraction (2023) Hx of hernia repair Hx of partial nephrectomy Medical History (Last Updated 04/30/24 @ 09:39 by Funmi Albert, RN) Aortic stenosis Bradycardia CKD (chronic kidney disease) stage 3, GFR 30-59 ml/min Elevated serum creatinine Encounter for subsequent annual wellness visit (AWV) in Medicare patient Gout (~2017) Hearing loss (~1959) Heart murmur History of COVID-19 (~2019) History of elevated PSA (~2009) HLD (hyperlipidemia) Hx of nephrolithotomy with removal of calculi Hypertension Hyperthyroidism Hypothyroidism (acquired) Lesion of right [place] kidney Lumbar radiculopathy LAM on CPAP Pacemaker (03/13/24) Prostate cancer (~2019) Sleep apnea (~1999) Smoldering multiple myeloma (~2021) Stress incontinence 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 Independent but distances limited by knee pain Activities of Daily Living and IADL's Pt needing assist for socks. Prior Functional Level (Other details) Pt having recent shoulder fx and is in the sling. Social History Household Members spouse Living Arrangements House Number of Floors (Floors) One Floor Number of Stairs To Enter/Railing? 3 steps with wide rails. He uses a cane Home Environment Standard Height Toilet,Walk in Shower Home Equipment Front Wheel Walker,Straight Cane,Hand Held Shower,Long Handled Shoe Horn,[place] Former,Sock Aid,Lift Recliner,Grab Bars Near Toilet,Grab Bars In Shower Additional Social History Comment Pt has an adjustable bed. Pt had prior L TKA last year in which her recovered well. M2 PT-IP Current Condition Start: 05/14/24 13:49 Freq: Status: Active Protocol: Document 05/14/24 11:30 DLM (Rec: 05/14/24 14:05 DL [id number]) Physical Therapy Current Condition Current Condition Evaluation Date 05/14/24 Treatment Diagnosis right TKA, impaired gait/ mobility Onset Date 05/13/24 M3 PT-IP Subjective Start: 05/14/24 13:49 Freq: Status: Active Protocol: Document 05/14/24 11:30 DLM (Rec: 05/14/24 14:05 DL [id number]) Subjective Physical Therapy Visit Type Type Initial Evaluation Visit Start Time 10:30 Visit Stop Time 11:30 Notes 60 min Number of CLINICAL NEUROPSYCHOLOGIST Visits 0 Physical Therapy Visit Comments Patient Comments He feels safe to discharge home today Patient Goals discharge home Therapy Pain Assessment Pain When Pain Assessed After Treatment Pain Present Pain Present Pain Reported Location Right knee Intensity 4 Scale Used Numeric (0 - 10) Description Aching,Tender,Tightness,With Movement Pain Behaviors Facial Grimacing,Guarding, Wincing Pain Management Techniques Apply Cold,Modification of Treatment,Re-positioning, Timing of Activity with Medications M4 PT-IP Mobility and Gait Start: 05/14/24 13:49 Freq: Status: Active Protocol: Document 05/14/24 11:30 DLM (Rec: 05/14/24 14:05 DL [id number]) PT-Transfer Assessment Sit to and From Stand Sit to and from Stand Independent,Use of Upper Extremities Equipment Transfer Assistive Device Gait Belt,Front Wheeled Walker Transfers Transfer Destination Chair,Wheelchair Transfer Technique Stand Step Pivot Transfer Ability Level of Assist Independent,Use of Upper Extremities Comments Mobility Comments after training he can demonstrate independent sit- stand with bilateral UE support from recliner and wheelchair, he wants to stay up in the chair, he reports no difficulty getting in/out of bed, he is slow during sit to stand but shows safe technique . Gait Assessment Gait Gait Assistance Required: Independent Distance (Feet) 150 Able to Maintain Weight Bearing Status Yes During Gait Assistive Devices Assistive Device Gait Belt,Front Wheeled Walker Factors Limiting Gait Function Factors Limiting Gait Function Decreased Activity Tolerance, Decreased Strength,Limited Range of Motion,Pain Comments Gait Comments he demonstrates good use of the FWW with UE's compensating for his knee pain Stair Climbing Assessment Evaluation Level of Assist On Stairs Standby Assistance Devices Stair Climbing Assistive Devices Straight Cane,Left Railing Technique/Endurance Stair Climbing Direction Ascend and Descend Stair Climbing Technique Step to Step Number of Steps Climbed 3 Query Text: Stair Climbing Set # Repetitions (reps) 1 Comments Stair Climbing Comments education for step-to sequence assisted him to manage the FWW PT-Balance Assessment Sitting Balance and Reactions Static Sitting Balance Ability Normal Dynamic Sitting Balance Ability Normal Standing Balance and Reactions Static Standing Balance Ability Good Dynamic Standing Balance Ability Good Device Used FWW M5 PT-IP Objective Assessments Start: 05/14/24 13:49 Freq: Status: Active Protocol: Document 05/14/24 11:30 DLM (Rec: 05/14/24 14:05 DLM [id number]) Orientation Orientation/Cognition Level of Alertness Alert Orientation Name,Age,Birthday,Month,Date, Year,Day of Week,Place, Situation Language Function Ability No Deficits Noted Safety Awareness Understands Safety Issues Memory Description No Deficits Noted Gross Range of Motion Upper Extremity ROM Assessment Within Functional Limits Lower Extremity ROM Assessment Right Impaired Impairments knee 30-80 degrees actively Strength Upper Extremity Strength Assessment Within Functional Limits Lower Extremity Strength Assessment Right Impaired Hip extensor lag with straight leg raise Knee ext 2+/5, flex 3+/5 Ankle DF 4+/5 Coordination Assessment Gross Coordination Gross Coordination WNL Sensation Assessment Sensation Gross Sensation WNL Muscle Tone Muscle Tone WNL Yes M6 PT-IP Treatment Start: 05/14/24 13:49 Freq: Status: Active Protocol: Document 05/14/24 11:30 DLM (Rec: 05/14/24 14:05 DLM [id number]) Physical Therapy Treatment Exercises Exercises Ankle Pumps,Gluteal Sets,Heel Slides,Straight Leg Raises, Short Arc Quads,Passive Knee Extension Hang Education Education Provided Weight Bearing Status,Post-Op Packet,Safety Other Treatments Other Treatment Performed His Son and are present this visit M7 PT-IP Assessment and Plan Start: 05/14/24 13:49 Freq: Status: Active Protocol: Document 05/14/24 11:30 DLM (Rec: 05/14/24 14:05 DLM [id number]) PT Summary Assessment and Plan Potential Rehabilitation Potential Good Status of Condition at Evaluation Evolving Summary Impairments Pain,ROM,Strength,Balance,Bed Mobility,Transfers,Gait, Activity Tolerance Progress Towards Goals Safe For Discharge Assessment Summary Lorne is progressing well post- op day one right TKA. After training he can demonstrate safe gait and mobility with FWW. He has supportive family to assist as needed at home. He completed stair training this visit as well as training in his home exercises. Pt and his Family feel safe to discharge home today. Notifed his nurse that he cleared Physical Therapy for discharge home today when medically stable. Frequency of Treatment Frequency Of Treatment Discharge Treatment Plan Physical Therapy Treatment Plan Bed Mobility Training,Transfer Training,Gait Training, Therapeutic Exercise,Post Op Education,Discharge Planning, Hot or Cold Pack,Neuromuscular Re-ed Other Recommendations and Next Treatment education and training Focus completed this visit Weight Bearing Status Weight Bearing Status Weight Bear as Tolerated Allowed Weight Bearing Amount (enter % right LE with FWW s/p TKA or #) (%) Recommendations To Nursing Amount of Assist Needed Standby Assistance Discharge Recommendations PT Discharge Recommendations Home with Assistance, Outpatient PT Other Discharge Recommendations His Son and plan to assist him at discharge Transportation Needs at Discharge Private Vehicle - PT assist 1
--- NOTE | 2024-05-14 11:47 | PC.NURSE ---
Discharge instructions gone over with patient and patient's partner. All questions answered, patient stated understanding. PIV removed prior to discharge. All belongings with patient. PCT Anders escorted patient to exit via wheelchair.
--- NOTE | 2024-05-14 14:01 | CM.DANOTE ---
Initial DCP Assessment Visit Note Reviewed EMR and team rounds for status updates. This CIRCULAR CLERK was unable to meet with pt f/f due to triage needs on the unit, and pt discharged during that time. Pt lives ind with his spouse in their own home in [place]. He has been medically cleared for home d/c, and his spouse was able to transport him home. Pt denied any CM d/c assistance/resource needs during his stay. Payor: Medicare Attending: Dr. Marietta Pickering Pt is a 78 year-old M post-op day 1 from a R total knee arthroplasty surgery. He has a hx of progressively worsening R-knee pain that did not improve with conservative efforts. He did also have a L-total knee arthroplasty surgery in 2023, which he states feeling very satisfied with, and did well postoperatively at that time, too. Pt does have OP PT set-up, as well as his Ortho post-opf/u visit. No further needs are indicated at this time. 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 Yes Advance Directives on File No History Provided By Medical Record Has Patient been admitted in last 30 No days? Prior Living Arrangements House Household Members spouse Type of transporation used prior to Drives own vehicle admit Independent with ADL's Yes Is patient alert and oriented? Yes DME Already Rented / Owned Bath Bench,Elevated Toilet Seat,FWW / Walker Patient/Family Preference OP PT Therapy,OP OT Therapy Comment S/p Right TKA. Patient planned for return home with spouse to assist and therapies have cleared patient for this plan. No needs from this CM team identified. Discharge Plan Home Transportation Arrangement Family Referrals Initiated None needed Review Status In Process Please Provide Date Initial DC 05/14/24 Assessment Was Performed Pre-Anesthesia Assessment Start: 04/30/24 08:46 Freq: Status: Discharge Protocol: Document 04/30/24 08:46 LB (Rec: 04/30/24 09:19 LB [id number]) Pre-Anesthesia Assessment PAC Comment 04/30/24 Phone assessment. Pt is [place] - per make sure he is looking at you when you are talking to him. Pt has incontinence and wears depends. Preferred Name Lorne Patient Information Reviewed Via Phone Assessment Assessment Completed With Patient Comment Paula. Diagnostic Results BMP/CMP,CBC,EKG,Type and Screen Comment 04/14/24 at . Primary Care Provider [place] [facility] Clearance Received Yes Seen Specialist in Last 12 Months Yes Specialist Seen Groover Operator,Orthopedist,Other Comment Pain management. Primary Language Slovak Preferred Language Slovak Vegetable Worker Required No Height 182.88 cm Weight 93.894 kg Body Mass Index (BMI) 28.0 Hearing Ability Hearing Impaired Visual Assist Glasses Barriers to Learning Auditory Comment Glasses for reading. Hx Anesthesia Reactions Yes: Bradycardia s/p colonoscopy Hx Family Anesthesia Reaction No Hx Malignant Hyperthermia No Hx Blood Transfusions No Anesthesia Review Requested Yes Metal Mixer No alcohol intake current alcohol intake frequency holidays/special occasions only Smoking Status Never smoker Substance Use Type [#R] does not use Pain Present Pain Reported Comment Right knee. Musculoskeletal Symptoms Back Pain,Joint Pain History of Falling (Recent or History of No ) Patient is completely paralyzed or No completely immobile Prosthesis or Orthotic Device Cane Comment Will bring walker. Is patient on oxygen? No Does patient have OLMEDO/SOB No Hx Sleep Apnea Yes CPAP/BIPAP use prescribed not used Will Bring CPAP/BIPAP DOS No Currently Taking a Beta Guillaume No Can You Climb a Flight of Stairs Without Yes SOB Hx Chest Pain No Hx SOB No Hx Syncope or Dizziness No Anti-Coagulant Therapy No Has a Groover Operator Yes Groover Operator name Dr Rhea CARVER Cardiac Testing Yes: Echo 11/27/23. Hx Pacemaker/ICD Yes Cardiac Clearance Received Yes Dysphagia No Gastrointestinal Symptoms Nausea Comment Occasionally takes zofran. Bladder Pattern Incontinent,Nocturia Hx Urinary Self Catheterization No Comment I leak a little bit - wears depends. Diabetes No Hx Drug Resistant Organism No Presence of External or Internal Medical Yes: Left knee, bilateral IOLs Devices , pacemaker. Have you had any close contact with No someone diagnosed with COVID-19? Are you experiencing any of these No symptoms symptoms? Received a COVID vaccine? Yes Comment Denies covid last 8 weeks. Marital Status Lives With spouse Current Living Arrangements House Number of Floors (Floors) One Floor Number of Stairs To Enter/Railing? 3 stairs with railing to enter . Support System Spouse Patient Discharge Plan Description Return Home Feels Safe in Current Environment Yes Emergency Contact Name Paula Reis - Emergency Contact Advance Directives? Yes Advance Directives on File No Requested Patient Bring Advanced Yes Directives DOS PAC Instructions Assistance for 24 hours post- op,Do not shave/clip surgical site,Durable medical equipment ,Medications to take/avoid, Nasal antibiotic,No ETOH/ petroleum product on skin DOS, NPO,Post-op transportation,Pre -surgical wash,Sensory aids, Sturdy shoes/comfortable clothes,Do not bring valuables and remove jewelry
== END 2024-05-14 11:40 | disposition home or self-care (01) ==
LOC: OR 10:43 → AC 10:44
PROVIDERS: Family Provider Pediatrics; PCP Family Medicine; Referring Provider Orthopaedic Surgery; Visit Provider Orthopaedic Surgery
PROC: 0SRC0JZ Replacement of Right Knee Joint with Synthetic Substitute, Open Approach (ICD-10-PCS; CPT 27447; principal; 2024-05-13 13:45)
DX: M17.11 Unilateral primary osteoarthritis, right knee (principal); G89.18 Other acute postprocedural pain; Z95.0 Presence of cardiac pacemaker; M25.761 Osteophyte, right knee
CPT/HCPCS: 27447; 36415; 64450; 73560; 85014; 85018; 97110; 97162; 97165; 97530; 97535; C1776; C1713; J0666; J0690; J1171; J2250; J2405; J2704; J3010

== ENCOUNTER → 2024-05-22 09:26 | Outpatient (CLI) | payer MEDICARE, OTHER, SELFPAY ==
[2024-05-13 15:53] VITALS: BMI 28.0
--- NOTE | 2024-05-22 09:27 | DI.US.S_ITS ---
PROCEDURE: US PERIPH VENOUS LOW EXTREM RT INDICATIONS: rt leg swelling, surgery 9 days ago TECHNIQUE: Real-time imaging, as well as color and pulse Doppler interrogation, were performed of the lower extremity deep veins from the inguinal ligament to the popliteal fossa, with documentation of the visualized calf veins. COMPARISON: None. FINDINGS: The common femoral, femoral, popliteal, and the visualized calf veins are normally compressible, and free of intraluminal thrombus. Color and pulse Doppler demonstrate normal phasic intraluminal flow. There is normal augmentation response to distal compression maneuver. IMPRESSION: No findings of lower extremity deep venous thrombosis. Dictated by: Nemesio Ruff M.D. on 05/22/2024 at 10:36 Approved by: Nemesio Ruff M.D. on 05/22/2024 at 10:36
--- NOTE | 2024-05-22 10:24 | DI.RAD.S_ITS ---
PROCEDURE: XR CHEST 2V INDICATIONS: rt leg swelling, surgery 9 days ago TECHNIQUE: 2 views of the chest were acquired. COMPARISON: [facility], CR, XR CHEST 2 VIEWS, 03/19/2024, 12:19. FINDINGS: Surgical changes and devices: Left chest wall pacemaker. Lungs and pleura: Platelike atelectasis in the right mid lung field. Lungs are otherwise clear. No pleural effusions or pneumothorax. Mediastinum: Mediastinal contours are normal. Heart size is normal. Bones and chest wall: No suspicious bony abnormalities. Soft tissues appear unremarkable. IMPRESSION: No acute cardiopulmonary abnormality is seen. Dictated by: Cruzito Gómez M.D. on 05/22/2024 at 14:43 Approved by: Cruzito Gómez M.D. on 05/22/2024 at 14:44
== END ==
PROVIDERS: Family Provider Pediatrics; PCP Family Medicine; Referring Provider Family Medicine; Visit Provider Family Medicine
DX: R06.02 Shortness of breath (principal); R68.83 Chills (without fever); N18.30 Chronic kidney disease, stage 3 unspecified; M79.89 Other specified soft tissue disorders
CPT/HCPCS: 71046; 93971

== ENCOUNTER → 2024-05-23 13:28 | Outpatient (CLI) | payer MEDICARE, OTHER, SELFPAY ==
[2024-05-13 15:53] VITALS: BMI 28.0
[2024-05-23 14:03] LABS: Add Manual Diff / Slide Review NO; Basophils Absolute Auto 100 /uL (0-100); Basophils Percent Auto 0.6 % (0-2); Eosinophils Absolute Auto 100 /uL (0-450); Eosinophils Percent Auto 1.6 % (2-4); Hematocrit 38.3 % (41-53); Hemoglobin 12.9 g/dL (13.5-17.5); Lymphocytes Absolute Auto 1600 /uL (1100-4500); Lymphocytes Percent Auto 18.9 % (25-40); Mean Corpuscular HGB Conc 33.6 % (30-36); Mean Corpuscular Hemoglobin 33.9 PG (26-34); Mean Corpuscular Volume 101.1 fL (80-100); Monocytes Absolute Auto 1000 /uL (0-900); Monocytes Percent Auto 11.5 % (3-14); Neutrophils Absolute Auto 5800 /uL (1500-7000); Neutrophils Percent Auto 67.4 % (50-75); Platelet Count 251 X10^3/uL (150-400); Red Blood Cell Count 3.79 X10^6/uL (4.5-5.9); Red Cell Distribution Width 15.5 % (11.6-14.8); White Blood Cell Count 8.6 X10^3/uL (4.5-11.0)
[2024-05-23 14:15] LABS: Alanine Aminotransferase 44 IU/L (<50); Albumin 3.2 g/dL (3.5-5.0); Albumin Globulin Ratio 0.7 (1.0-2.8); Alkaline Phosphatase 226 U/L (38-126); Aspartate Aminotransferase 64 IU/L (17-59); BUN Creatinine Ratio 12.1 (6-22); Bilirubin Total 1.5 mg/dL (0.2-1.3); Blood Urea Nitrogen 21 mg/dL (9-20); C-Reactive Protein Quant 3.9 mg/dL (<1.0); Calcium 8.2 mg/dL (8.4-10.2); Carbon Dioxide 18 mmol/L (22-32); Chloride 107 mmol/L (98-107); Estimated Glomerular Filt Rate 39 mL/min (>60); Globulin 4.5 g/dL (1.7-4.1); Glucose 100 mg/dL (80-110); HEMOLYSIS < 15 (0-50); Potassium 4.4 mmol/L (3.4-5.1); Sodium 134 mmol/L (137-145); Total Protein 7.7 g/dL (6.3-8.2)
[2024-05-23 14:44] LABS: Erythrocyte Sedimentation Rate 53 MM/HR (0-15)
== END ==
PROVIDERS: Family Provider Pediatrics; PCP Family Medicine; Referring Provider Family Medicine; Visit Provider Family Medicine
DX: R06.02 Shortness of breath (principal); M79.89 Other specified soft tissue disorders; R68.83 Chills (without fever); N18.30 Chronic kidney disease, stage 3 unspecified
CPT/HCPCS: 36415; 80053; 85025; 85651; 86140

== ENCOUNTER 2024-05-28 11:16 | Emergency (ER) | payer MEDICARE, OTHER, SELFPAY ==
[2024-05-13 15:53] VITALS: BMI 28.0
--- NOTE | 2024-05-28 11:24 | DI.RAD.S_ITS ---
PROCEDURE: XR CHEST 1V INDICATIONS: Shortness of breath TECHNIQUE: One view of the chest was acquired. COMPARISON: [facility], , XR CHEST 2V, 05/22/2024, 10:20. FINDINGS: Surgical changes and devices: Left chest wall pacemaker. Lungs and pleura: Mild opacity in the right mid lung field. No pleural effusions or pneumothorax. Mediastinum: Mediastinal contours appear normal. Heart size is normal. Bones and chest wall: Right-sided rib fractures. No suspicious bony lesions. Overlying soft tissues appear unremarkable. IMPRESSION: Mild opacity in the right mid lung field, may represent infection. Right-sided rib fractures are noted which appear more pronounced than prior exam, correlate with recent trauma. Dictated by: Cruzito Gómez M.D. on 05/28/2024 at 12:07 Approved by: Cruzito Gómez M.D. on 05/28/2024 at 12:09
[2024-05-28 11:25] VITALS: BP 107/60; PULSE 69; RESP 17; TEMP 36.6; O2SAT 99; BMI 27.8
--- NOTE | 2024-05-28 11:30 | EKG_ITS ---
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
[2024-05-28 11:35] VITALS: BP 136/64; PULSE 60; RESP 15; O2SAT 97
[2024-05-28 11:45] LABS: Add Manual Diff / Slide Review NO; Basophils Absolute Auto 100 /uL (0-100); Eosinophils Absolute Auto 200 /uL (0-450); Eosinophils Percent Auto 3.2 % (2-4); Hematocrit 38.6 % (41-53); Hemoglobin 12.9 g/dL (13.5-17.5); Lymphocytes Absolute Auto 1100 /uL (1100-4500); Lymphocytes Percent Auto 15.6 % (25-40); Mean Corpuscular HGB Conc 33.3 % (30-36); Mean Corpuscular Hemoglobin 33.8 PG (26-34); Mean Corpuscular Volume 101.6 fL (80-100); Monocytes Absolute Auto 900 /uL (0-900); Monocytes Percent Auto 12.4 % (3-14); Neutrophils Absolute Auto 4800 /uL (1500-7000); Neutrophils Percent Auto 67.8 % (50-75); Platelet Count 280 X10^3/uL (150-400); Red Cell Distribution Width 15.3 % (11.6-14.8); White Blood Cell Count 7.1 X10^3/uL (4.5-11.0)
[2024-05-28 11:56] LABS: Lactate (Lactic Acid) 1.7 mmol/L (0.7-2.1)
--- NOTE | 2024-05-28 12:00 | DI.US.S_ITS ---
PROCEDURE: US [facility] VENOUS LOW EXTREM RT INDICATIONS: recent knee surgery, inc swelling RLE TECHNIQUE: Real-time imaging, as well as color and pulse Doppler interrogation, were performed of the lower extremity deep veins from the inguinal ligament to the popliteal fossa, with documentation of the visualized calf veins. COMPARISON: [facility], [facility] VENOUS LOW EXTREM RT, 05/22/2024, 10:11. FINDINGS: The common femoral, femoral, popliteal, and the visualized calf veins are normally compressible, and free of intraluminal thrombus. Color and pulse Doppler demonstrate normal phasic intraluminal flow. There is normal augmentation response to distal compression maneuver. IMPRESSION: No findings of lower extremity deep venous thrombosis. Dictated by: Jordin Alvarez M.D. on 05/28/2024 at 11:59 Approved by: Jordin Alvraez M.D. on 05/28/2024 at 11:59
[2024-05-28 12:01] VITALS: BP 129/62; PULSE 60; RESP 20; O2SAT 99
--- NOTE | 2024-05-28 12:02 | ED_ITS ---
HPI - General Adult General Chief complaint: Shortness of Breath/Dyspnea Stated complaint: SOB Time Seen by Provider: 05/28/24 11:41 Source: patient Mode of arrival: Ambulatory History of Present Illness HPI narrative: 78-year-old male had right knee joint replacement surgery by Dr. Marietta Pickering here at [facility] 3 weeks ago, saw Dr. Pickering earlier this morning for postoperative check, who was concerned that patient seemed to endorse shortness of breath with minimal exertion. Concern for possible blood clot to the lungs. Here for further evaluation. Patient denies any recent chest pain. Does have shortness of breath with walking across flat surfaces. No fevers although he has felt feverish. Denies cough. Has some swelling to the right postoperative leg, might be recently increased. Denies swelling to the left leg. PCP Erickson. Related Data Home Medications Medication Instructions Recorded Confirmed olmesartan 40 mg tablet (Benicar) 40 mg PO QPM blood pressure 09/24/23 05/22/24 levothyroxine 88 mcg capsule 88 mcg PO DAILY 12/03/23 05/22/24 ondansetron 4 mg disintegrating 4 mg PO Q6H PRN Nausea 04/30/24 05/22/24 tablet tramadol 50 mg tablet mg PO 05/22/24 05/22/24 aspirin 81 mg tablet,delayed 81 mg PO DAILY 05/28/24 05/28/24 release Previous Rx's Medication Instructions Recorded c-pap supplies #1 ea 05/02/23 clotrimazole-betamethasone 1 1 applic topical BID #45 grams 05/02/23 %-0.05 % topical cream amlodipine 10 mg tablet 10 mg PO DAILY #90 tabs 09/05/23 pravastatin 40 mg tablet 40 mg PO QPM #90 tabs 12/10/23 acetaminophen 500 mg tablet 500 mg PO Q4H PRN Pain (Scale 05/14/24 (Tylenol Extra Strength) Score 4-6) #120 tabs amoxicillin 875 mg tablet 875 mg PO BID 10 days #20 tabs 05/28/24 doxycycline hyclate 100 mg capsule 100 mg PO BID #10 caps 05/28/24 Allergies Allergy/AdvReac Type Severity Reaction Status Date / Time Horse/Equine Containing Allergy Severe Anaphylaxis Verified 05/28/24 11:32 Products horse serum Allergy Severe Anaphylaxis Uncoded 04/09/25 11:32 Patient History Medical History (Updated 05/28/24 @ 13:51 by Goldy White MD) Pacemaker (03/13/24) Elevated serum creatinine History of COVID-19 (~2019) Bradycardia HLD (hyperlipidemia) Encounter for subsequent annual wellness visit (AWV) in Medicare patient LAM on CPAP Lesion of right [place] kidney Aortic stenosis CKD (chronic kidney disease) stage 3, GFR 30-59 ml/min Lumbar radiculopathy Stress incontinence 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 Hx of nephrolithotomy with removal of calculi Heart murmur Hypothyroidism (acquired) Sleep apnea (~1999) Gout (~2017) Hearing loss (~1959) History of elevated PSA (~2009) Hyperthyroidism Hypertension Smoldering multiple myeloma (~2021) Thyroid cancer (~1999) Prostate cancer (~2019) Surgical History (Updated 04/30/24 @ 10:12 by Funmi Albert RN) Hx of partial nephrectomy History of kidney surgery (11/10/20) Hx of bilateral cataract extraction (2023) Hx of hernia repair Anesthesia History of shoulder surgery (~1977) History of partial knee replacement (~2014) History of prostatectomy (~2019) Family History Grandfather History of heart disease Grandmother Dementia Sister Thyroid disease Social History marital status: number of children: 3 household members: spouse occupational status: previously employed Smoking Status: Never smoker alcohol intake: current caffeine: Yes Type(s) of exercise: other frequency: daily Smoking Status: Never smoker alcohol intake frequency: holidays/special occasions only Exam Narrative Exam Narrative: GENERAL: Well-developed patient, in mild distress. HEAD: Atraumatic. Normocephalic. EYES: Pupils equal round and reactive. Extraocular motions intact. No scleral icterus. No injection or drainage. ENT: Nose without bleeding, purulent drainage. Throat without erythema, tonsillar hypertrophy or exudate. Airway patent. NECK: Trachea midline. Non tender CARDIOVASCULAR: Regular rate and rhythm without murmurs, gallops, or rubs. RESPIRATORY: Clear to auscultation. Breath sounds equal bilaterally. No wheezes, rales, or rhonchi. GASTROINTESTINAL: Abdomen soft, non-tender, nondistended. EXTREMITIES: No edema or joint tenderness. Healing scar anterior right knee without significant warmth or redness. Slight swelling RLE compared to LLE. BACK: Nontender without deformity or crepitance. No flank tenderness. NEURO: AOx3. Motor functions grossly nonfocal SKIN: No rash or erythema of visible areas Initial Vital Signs Initial Vital Signs: Vital Signs Temperature 98 F 05/28/24 11:25 Pulse Rate 69 05/28/24 11:25 Respiratory Rate 17 05/28/24 11:25 Blood Pressure 107/60 05/28/24 11:25 Pulse Oximetry 99 05/28/24 11:25 Oxygen Delivery Method Room Air 05/28/24 11:25 Course Orders Ordered: ED Orders 05/28/24 11:24 XR chest 1V Stat EKG-12 Lead Stat 05/28/24 11:38 Complete Blood Count AUTO DIFF Stat Lactate (Lactic Acid) Stat 05/28/24 12:00 US periph venous low extrem rt Stat Comprehensive Metabolic Panel Stat Covid-19 + FLU A/B + RSV - PCR Stat NT-proBNP (BNP-Adult 18+) Stat Prothrombin Time INR Stat Troponin I Stat 05/28/24 12:44 CT angio chest PE protocol Stat 05/28/24 13:19 Blood Culture Stat Discontinued Medications Acetaminophen (Acetaminophen 325 Mg Tablet) 975 mg PO NOW ONE Stop: 05/28/24 13:52 Last Admin: 05/28/24 13:53 Dose: 975 mg Documented By: ELIE Doxycycline Hyclate (Doxycycline Hyclate 100 Mg Tablet) 100 mg PO NOW ONE Stop: 05/28/24 12:55 Last Admin: 05/28/24 13:56 Dose: 100 mg Documented By: ELIE Ceftriaxone Sodium 1,000 mg/ (Sodium Chloride) 100 mls @ 200 mls/hr IV NOW ONE Stop: 05/28/24 12:55 Last Infusion: 05/28/24 14:22 Dose: Infused Documented By: Admin: 05/28/24 13:46 Dose: 200 mls/hr Documented By: ELIE Vital Signs Vital signs: Vital Signs - 8 hr 05/28/24 12:01 05/28/24 12:30 05/28/24 13:00 Pulse Rate 60 60 63 Respiratory Rate 20 40 H 12 Blood Pressure 129/62 128/70 158/72 H Pulse Oximetry 99 98 98 Oxygen Delivery Method Room Air 05/28/24 14:47 Pulse Rate 60 Respiratory Rate 20 Blood Pressure 132/60 Pulse Oximetry 97 Oxygen Delivery Method Room Air Medical Decision Making Lab Data Lab results reviewed: Yes I reviewed the patient's lab results. Lab results narrative: White blood cell count 7100, hemoglobin 12.9, platelets adequate. BUN 20 with creatinine 1.38. Glucose 91. Sodium and potassium levels normal. Alkaline phosphatase and AST slight elevations, ALT and T bili normal. Lactate normal. 05/28/24 11:38 05/28/24 12:00 Labs: Lab Results 05/28/24 05/28/24 Range/Units 11:38 12:00 WBC 7.1 (4.5-11.0) X10^3/uL RBC 3.80 L (4.5-5.9) X10^6/uL Hgb 12.9 L (13.5-17.5) g/dL Hct 38.6 L (41-53) % MCV 101.6 H (80-100) fL MCH 33.8 (26-34) PG MCHC 33.3 (30-36) % RDW 15.3 H (11.6-14.8) % Plt Count 280 (150-400) X10^3/uL Neut % (Auto) 67.8 (50-75) % Lymph % (Auto) 15.6 L (25-40) % [place] % (Auto) 12.4 (3-14) % Eos % (Auto) 3.2 (2-4) % Baso % (Auto) 1.0 (0-2) % Neut # (Auto) 4800 (2662-0741) /uL Lymph # (Auto) 1100 (1756-3864) /uL [place] # (Auto) 900 (0-900) /uL Eos # (Auto) 200 (0-450) /uL Baso # (Auto) 100 (0-100) /uL PT 13.0 H (9.4-12.5) SECONDS INR 1.1 (0.9-1.3) Sodium 139 (137-145) mmol/L Potassium 4.4 (3.4-5.1) mmol/L Chloride 111 H (98-107) mmol/L Carbon Dioxide 23 (22-32) mmol/L BUN 20 (9-20) mg/dL Creatinine 1.38 H (0.66-1.25) mg/dL Estimated GFR 52 L (>60) mL/min BUN/Creatinine Ratio 14.5 (6-22) Glucose 91 (80-110) mg/dL Lactate 1.7 (0.7-2.1) mmol/L Calcium 8.2 L (8.4-10.2) mg/dL Total Bilirubin 1.0 (0.2-1.3) mg/dL AST 70 H (17-59) IU/L ALT 41 (<50) IU/L Alkaline Phosphatase 242 H (38-126) U/L Troponin I < 0.012 (0.01-0.034) ng/mL NT-Pro-B Natriuret Pep 1540 H (<450) pg/mL Total Protein 7.9 (6.3-8.2) g/dL Albumin 3.0 L (3.5-5.0) g/dL Globulin 4.9 H (1.7-4.1) g/dL Albumin/Globulin Ratio 0.6 L (1.0-2.8) SARS-CoV-2 (PCR) Negative (Negative) Influenza A (RT-PCR) Flu a negative (NEGATIVE) Influenza B (RT-PCR) Flu b negative (NEGATIVE) RSV (PCR) Negative (Negative) Imaging Data Chest x-ray: Radiologist's Impression: [address] [id number] XRay Report Signed Patient: Mino Reis MR#: [id number] : 1945 Acct:[id number] Age/Sex: 78 / M Date of Service: 05/28/24 Loc: ED Accession Number: [id number] Procedure: XR chest 1V Ordering Provider: Goldy White MD PROCEDURE: XR CHEST 1V INDICATIONS: Shortness of breath TECHNIQUE: One view of the chest was acquired. COMPARISON: [facility], , XR CHEST 2V, 05/22/2024, 10:20. FINDINGS: Surgical changes and devices: Left chest wall pacemaker. Lungs and pleura: Mild opacity in the right mid lung field. No pleural effusions or pneumothorax. Mediastinum: Mediastinal contours appear normal. Heart size is normal. Bones and chest wall: Right-sided rib fractures. No suspicious bony lesions. Overlying soft tissues appear unremarkable. IMPRESSION: Mild opacity in the right mid lung field, may represent infection. Right-sided rib fractures are noted which appear more pronounced than prior exam, correlate with recent trauma. Dictated by: Cruzito Gómez M.D. on 05/28/2024 at 12:07 Approved by: Cruzito Gómez M.D. on 05/28/2024 at 12:09 ECG Data Attestation: I personally reviewed and interpreted this ECG as follows: Interpretation: Atrial paced rhythm with prolonged AV conduction, ventricular rate 60. No obvious ST segment elevation changes. NV 276, QRS 92, QTC 418. MDM Narrative Medical decision making narrative: 78-year-old male with recent leg surgery, increased swelling to the right leg, shortness of breath, exertional dyspnea. Consider DVT, ultrasound right leg Doppler study ordered. Regarding dyspnea/exertional DDx consider pulmonary embolus, congestive heart failure, postoperative [place], pneumonia, other. EKG, chest x-ray, labs pending. Chest x-ray suspicious for right-sided rib fractures, unclear age, also possible right-sided infiltrates. See radiology report. No pneumothorax. Blood culture, IV ceftriaxone, oral doxycycline. GFR adequate, CT angiogram chest ordered. Covid/Flu/RSV negative. Ultrasound negative for DVT per [employer] tech report. Await Radiology report. CTA Chest no PE, some atelectasis changes. See rads report. Patient wants to go home, declined walker trial, home with at bedside who did no t protest patient decision to go home. Discussed pneumonia vs atelectasis changes on imaging. They prefer abx on discharge. Rx for Amoxicillin and Doxycycline oral abx couse. Incentive spirometer dispensed with instructions. Albuterol MDI with inhaler dispensed. Recheck with PCP advised 2d, return precautions discussed. DC home per patient request. Discharge Plan Departure Patient Disposition: Home Clinical Impression: Exertional shortness of breath, Atelectasis, Pneumonia Activity Restrictions/Additional Instructions: Recent right knee surgery with some shortness of breath on minimal exertion today in clinic. On examination here in the emergency department I did not really hear wheezes or crackles on your lung exam, and you seemed to be able to speak in full sentences. Redness and some swelling to the right leg with recent right knee surgery noted. Chest x-ray had some concerns about possible pneumonia changes. IV antibiotics were initiated on that basis. CT angiogram of the chest was obtained, radiologist did not feel that there was any blood clots to the lungs, did not feel that there was any infiltrates/pneumonia like changes in the lungs, but there was atelectasis localized lung collapse changes, if these are not aerated that could contribute to sensation of shortness of breath as well. We discussed antibiotics versus no antibiotics further, you felt more comfortable continue antibiotics. You have inhaler to use at home. Dispensed incentive spirometer to help keep the lungs open as well. We will prescribe amoxicillin and doxycycline antibiotics to take by mouth. Close follow up advised with your regular doctor in the next few days. We discussed hospital admission regarding your dyspnea on exertion, you did not want to be admitted at the hospital at this time. You did not want to have a walker trial. You requested to be discharged home. Discharged home with family. Return to this/nearest emergency department for any change worsening symptoms or any concerns prior Prescriptions: New doxycycline hyclate 100 mg capsule 100 mg PO BID Qty: 10 0RF amoxicillin 875 mg tablet 875 mg PO BID 10 Days Qty: 20 0RF No Action pravastatin 40 mg tablet 40 mg PO QPM Qty: 90 3RF clotrimazole-betamethasone 1-0.05 % cream 1 applic topical BID Qty: 45 11RF (DME) c-pap supplies See Rx Instructions .Route .MEDSUPPLY Qty: 1 0RF Rx Instructions: mask to pt liking, tubing, filters and all other supplies needed amlodipine 10 mg tablet 10 mg PO DAILY Qty: 90 3RF tramadol 50 mg tablet PO olmesartan [Benicar] 40 mg tablet 40 mg PO QPM ondansetron 4 mg Tablet,Disintegrating 4 mg PO Q6H PRN (Reason: Nausea) acetaminophen [Tylenol Extra Strength] 500 mg Tablet 500 mg PO Q4H PRN (Reason: Pain (Scale Score 4-6)) Qty: 120 0RF aspirin [Aspir-81] 81 mg Tablet,Delayed Release (Dr/Ec) 81 mg PO DAILY levothyroxine 88 mcg capsule 88 mcg PO DAILY Referrals: Mor Park DO [Primary Care Provider] - Stand Alone Forms: Patient Portal/API/Survey
[2024-05-28 12:30] VITALS: BP 128/70; PULSE 60; RESP 40; O2SAT 98
[2024-05-28 12:32] LABS: INR 1.1 (0.9-1.3)
[2024-05-28 12:38] LABS: Alanine Aminotransferase 41 IU/L (<50); Albumin Globulin Ratio 0.6 (1.0-2.8); Alkaline Phosphatase 242 U/L (38-126); Aspartate Aminotransferase 70 IU/L (17-59); BUN Creatinine Ratio 14.5 (6-22); Blood Urea Nitrogen 20 mg/dL (9-20); Calcium 8.2 mg/dL (8.4-10.2); Carbon Dioxide 23 mmol/L (22-32); Chloride 111 mmol/L (98-107); Estimated Glomerular Filt Rate 52 mL/min (>60); Globulin 4.9 g/dL (1.7-4.1); Glucose 91 mg/dL (80-110); HEMOLYSIS 53 (0-50); Potassium 4.4 mmol/L (3.4-5.1); Sodium 139 mmol/L (137-145); Total Protein 7.9 g/dL (6.3-8.2)
--- NOTE | 2024-05-28 12:44 | DI.CT.S_ITS ---
PROCEDURE: CT ANGIO CHEST PE PROTOCOL INDICATIONS: Shortness of breath, recent knee surgery, eval for PE TECHNIQUE: After the administration of intravenous contrast, 2 mm thick sections acquired from the pulmonary apices to the posterior costophrenic angles. 3-dimensional maximum intensity projection (MIP) coronal and sagittal reformats were then acquired through the thorax. For radiation dose reduction, the following was used: automated exposure control, adjustment of mA and/or kV according to patient size. COMPARISON: [facility], CT, CT ABDOMEN RENAL PROTOCOL, 11/14/2023, 7:25. FINDINGS: Image quality: Diagnostic. Pulmonary arteries: Pulmonary arteries are normal in size, and demonstrate no intraluminal filling defects to suggest central pulmonary embolism. Lower Neck: No enlarged lymph nodes. Thyroid: No thyroid nodules which require sonographic follow up, per consensus guidelines. Axillae: No enlarged lymph nodes. Chest Wall: Unremarkable. Bones: Unremarkable. Lungs and Pleura: No pneumothorax or pleural effusions. Atelectasis involving the inferior aspect of the right upper lobe subjacent to the minor fissure. Calcified granuloma, left upper lobe, image 68 of series 4. Calcified granuloma, posterior left upper lobe, image 65 of series 4. 3 mm noncalcified pulmonary nodule, posterior right upper lobe, image 151 of series 5. Heart: Cardiomegaly. Pacemaker. Severe coronary artery calcifications. Minimal pericardial thickening. Thoracic Vessels: No aortic aneurysm. Mediastinum and [place]: No enlarged lymph nodes. Esophagus: No wall thickening. No hiatal hernia. Upper Abdomen: Cirrhosis. Cholelithiasis. Normal size spleen with chronic splenic granulomata. IMPRESSION: No pulmonary embolus. No acute cardiopulmonary process. Cardiomegaly, pacemaker, severe coronary artery calcifications. Cirrhosis. Cholelithiasis. Focal atelectasis, inferior aspect of right upper lobe. Chronic granulomatous disease. 3 mm noncalcified pulmonary nodule, right upper lobe. Comment: Consider optional 12 month follow-up CT for the noncalcified pulmonary nodule. Dictated by: Rashad Diego M.D. on 05/28/2024 at 13:16 Approved by: Rashad Diego M.D. on 05/28/2024 at 13:22
[2024-05-28 12:50] LABS: NT-proBNP (BNP-Adult 18+) 1540 pg/mL (<450); Troponin I < 0.012 ng/mL (0.01-0.034)
[2024-05-28 13:00] VITALS: BP 158/72; PULSE 63; RESP 12; O2SAT 98
[2024-05-28 13:03] LABS: COVID-19 CEPHEID 4-PLEX PCR Negative (Negative); Influenza A - CEPHEID Flu A NEGATIVE (NEGATIVE); Influenza B - CEPHEID Flu B NEGATIVE (NEGATIVE); Respiratory Syncytial Virus Negative (Negative)
[2024-05-28] MEDS: cefTRIAXone 1,000 MG in SODIUM CHLORIDE 0.9% 100 ML 200 MG IV (13:46)
[2024-05-28] MEDS: ACETAMINOPHEN 325 MG TABLET 975 MG PO (13:53)
[2024-05-28] MEDS: DOXYCYCLINE HYCLATE 100 MG TABLET PO (13:56)
[2024-05-28 14:47] VITALS: BP 132/60; PULSE 60; RESP 20; O2SAT 97
== END 2024-05-28 14:50 | disposition home or self-care (01) ==
PROVIDERS: Emergency Provider Emergency Medicine; Family Provider Pediatrics; PCP Family Medicine
DX: R06.02 Shortness of breath (principal); J98.11 Atelectasis; J18.9 Pneumonia, unspecified organism
CPT/HCPCS: 0241U; 36415; 71045; 71275; 80053; 83605; 83880; 84484; 85025; 85610; 87040; 93005; 93971; 96365; 99284; J0696; Q9967

== ENCOUNTER → 2024-06-19 08:25 | Outpatient (CLI) | payer MEDICARE, OTHER, SELFPAY ==
[2024-05-13 15:53] VITALS: BMI 28.0
[2024-06-19 09:36] LABS: Alanine Aminotransferase 47 IU/L (<50); Albumin 3.1 g/dL (3.5-5.0); Albumin Globulin Ratio 0.7 (1.0-2.8); Alkaline Phosphatase 278 U/L (38-126); Aspartate Aminotransferase 75 IU/L (17-59); BUN Creatinine Ratio 14.5 (6-22); Bilirubin Total 0.9 mg/dL (0.2-1.3); Blood Urea Nitrogen 21 mg/dL (9-20); Calcium 8.4 mg/dL (8.4-10.2); Carbon Dioxide 24 mmol/L (22-32); Chloride 109 mmol/L (98-107); Estimated Glomerular Filt Rate 49 mL/min (>60); Globulin 4.7 g/dL (1.7-4.1); Glucose 91 mg/dL (70-99); HEMOLYSIS < 15 (0-50); Potassium 4.4 mmol/L (3.4-5.1); Sodium 139 mmol/L (137-145); Total Protein 7.8 g/dL (6.3-8.2)
[2024-06-19 12:49] LABS: TSH w/ Reflex to FT4 1.49 uIU/mL (0.47-4.68)
== END ==
PROVIDERS: Family Provider Pediatrics; PCP Family Medicine; Referring Provider Internal Medicine Cardiovascular Disease; Visit Provider Internal Medicine Cardiovascular Disease
DX: I48.21 Permanent atrial fibrillation (principal); E03.9 Hypothyroidism, unspecified
CPT/HCPCS: 36415; 80053; 84443

== ENCOUNTER → 2024-07-01 10:24 | Outpatient (CLI) | payer MEDICARE, OTHER, SELFPAY ==
[2024-05-13 15:53] VITALS: BMI 28.0
[2024-07-01 11:52] LABS: Hematocrit 34.1 % (41-53); Hemoglobin 11.7 g/dL (13.5-17.5)
[2024-07-01 12:00] LABS: Creatinine Urine Random 204.28 mg/dL; Protein (Total) Urine Random 9 mg/dL (0-12); Protein Creatinine Ratio Urine 0.04 GRAM/24H
[2024-07-01 12:19] LABS: BUN Creatinine Ratio 11.8 (6-22); Blood Urea Nitrogen 17 mg/dL (9-20); Calcium 8.1 mg/dL (8.4-10.2); Carbon Dioxide 22 mmol/L (22-32); Chloride 112 mmol/L (98-107); Estimated Glomerular Filt Rate 49 mL/min (>60); Glucose 89 mg/dL (70-99); HEMOLYSIS < 15 (0-50); Potassium 4.4 mmol/L (3.4-5.1); Sodium 140 mmol/L (137-145)
== END ==
PROVIDERS: Family Provider Pediatrics; PCP Family Medicine; Referring Provider Family Medicine; Visit Provider Student in an Organized Health Care Education/Training Program
DX: N05.9 Unspecified nephritic syndrome with unspecified morphologic changes (principal); D70.9 Neutropenia, unspecified; D63.1 Anemia in chronic kidney disease; R80.9 Proteinuria, unspecified
CPT/HCPCS: 36415; 80048; 82570; 84156; 85014; 85018

== ENCOUNTER → 2024-07-29 07:01 | Outpatient (CLI) | payer MEDICARE, OTHER, SELFPAY ==
[2024-05-13 15:53] VITALS: BMI 28.0
[2024-07-29 07:49] LABS: Hemoglobin 13.1 g/dL (13.5-17.5)
[2024-07-29 08:13] LABS: BUN Creatinine Ratio 14.1 (6-22); Blood Urea Nitrogen 19 mg/dL (9-20); Calcium 8.4 mg/dL (8.4-10.2); Carbon Dioxide 23 mmol/L (22-32); Chloride 109 mmol/L (98-107); Estimated Glomerular Filt Rate 53 mL/min (>60); Glucose 86 mg/dL (70-99); HEMOLYSIS < 15 (0-50); Phosphorous 3.5 mg/dL (2.3-3.7); Potassium 4.3 mmol/L (3.4-5.1); Sodium 137 mmol/L (137-145)
[2024-07-29 08:46] LABS: Creatinine Urine Random 105.58 mg/dL; Protein (Total) Urine Random 9 mg/dL (0-12); Protein Creatinine Ratio Urine 0.08 GRAM/24H
[2024-07-30 08:09] LABS: Parathyroid Hormone Int 69 pg/mL (15-65)
== END ==
PROVIDERS: Family Provider Pediatrics; PCP Family Medicine; Referring Provider Student in an Organized Health Care Education/Training Program; Visit Provider Student in an Organized Health Care Education/Training Program
DX: D70.9 Neutropenia, unspecified (principal); D63.1 Anemia in chronic kidney disease; E83.30 Disorder of phosphorus metabolism, unspecified; N05.9 Unspecified nephritic syndrome with unspecified morphologic changes; N25.81 Secondary hyperparathyroidism of renal origin; R80.9 Proteinuria, unspecified
CPT/HCPCS: 36415; 80048; 82570; 83970; 84100; 84156; 85014; 85018

== ENCOUNTER → 2024-11-03 10:28 | Outpatient (CLI) | payer MEDICARE, OTHER, SELFPAY ==
[2024-05-13 15:53] VITALS: BMI 28.0
--- NOTE | 2024-11-03 10:31 | DI.CT.S_ITS ---
PROCEDURE: CT ABDOMEN RENAL PROTOCOL INDICATIONS: Follow-up renal lesion/renal cancer TECHNIQUE: Optional 5 mm thick noncontrast images acquired from the diaphragm to the iliac crests. After the administration of intravenous contrast, 5 mm thick images again acquired from the diaphragm to the iliac crests in the arterial and urographic phases. 5 mm thick coronal and sagittal reformats were then acquired. For radiation dose reduction, the following was used: automated exposure control, adjustment of mA and/or kV according to patient size. COMPARISON: [facility], CT, CT ABDOMEN RENAL PROTOCOL, 11/14/2023, 7:25. [facility], MD, MD PET CT FUSION WHOLE BODY, 10/01/2024, 9:49. FINDINGS: Image quality: Diagnostic Lower chest: Similar lower lung scarring. Mild cardiomegaly. Cardiac electrode leads are present Liver: Cirrhotic contour. No focal hypervascular liver lesion. Gallbladder and biliary system: Unremarkable, nondilated Pancreas: No ductal dilation. Mild calcifications at the head likely from prior inflammation. Spleen: Granulomatous calcifications. No splenomegaly Adrenals: Adrenals are unremarkable Kidneys: Post treatment changes in the right posterior kidney appears similar to prior imaging. There are intrinsic densities and areas of scarring. No enhancing suspicious soft tissue nodule. No left renal mass. Left parapelvic cysts are present. Vessels and lymph nodes: The main portal vein is patent. No abdominal aortic aneurysm. [id number] aortoiliac atherosclerotic calcifications. No enlarged lymph nodes by size criteria. There is a similar prominent portal caval lymph node and other periportal lymph nodes, likely reactive to liver disease. Bowel and peritoneum: No bowel obstruction. Moderate colonic fecal loading. Body wall: Unremarkable Bones: No aggressive appearing osseous abnormality. Old right rib fractures are seen. IMPRESSION: Similar post treatment changes or right kidney. No suspicious local recurrence. No evidence of active metastases in the abdomen. Cirrhotic liver contour, consider HCC screening. Other findings above. Dictated by: Nemesio Ruff M.D. on 11/03/2024 at 13:38 Approved by: Nemesio Ruff M.D. on 11/03/2024 at 13:45
[2024-11-03 12:51] LABS: Blood Urea Nitrogen 22 mg/dL (9-20); Calcium 8.6 mg/dL (8.4-10.2); Carbon Dioxide 24 mmol/L (22-32); Chloride 107 mmol/L (98-107); Estimated Glomerular Filt Rate 52 mL/min (>60); Glucose 82 mg/dL (70-99); HEMOLYSIS < 15 (0-50); Potassium 4.7 mmol/L (3.4-5.1); Sodium 136 mmol/L (137-145)
[2024-11-03 13:22] LABS: Prostate Specific Antigen < 0.064 ng/mL (0.10-4.00)
== END ==
PROVIDERS: PCP Family Medicine; Referring Provider Urology; Visit Provider Urology
DX: C61 Malignant neoplasm of prostate (principal); N28.9 Disorder of kidney and ureter, unspecified; I51.7 Cardiomegaly; I70.0 Atherosclerosis of aorta; R79.89 Other specified abnormal findings of blood chemistry; Z90.79 Acquired absence of other genital organ(s); Z98.890 Other specified postprocedural states
CPT/HCPCS: 36415; 74170; 80048; 84153; Q9967

== ENCOUNTER → 2025-02-10 09:36 | Outpatient (CLI) | payer MEDICARE, OTHER, SELFPAY ==
[2024-05-13 15:53] VITALS: BMI 28.0
[2025-02-10 10:02] LABS: Add Manual Diff / Slide Review NO; Hematocrit 38.6 % (41-53); Hemoglobin 13.3 g/dL (13.5-17.5); Lymphocytes Absolute Auto 900 /uL (1100-4500); Mean Corpuscular HGB Conc 34.4 % (30-36); Mean Corpuscular Hemoglobin 35.0 PG (26-34); Mean Corpuscular Volume 101.7 fL (80-100); Platelet Count 109 X10^3/uL (150-400)
[2025-02-10 10:27] LABS: Blood Urea Nitrogen 29 mg/dL (9-20); Calcium 8.6 mg/dL (8.4-10.2); Carbon Dioxide 25 mmol/L (22-32); Chloride 109 mmol/L (98-107); Estimated Glomerular Filt Rate 39 mL/min (>60); Glucose 111 mg/dL (70-99); HEMOLYSIS < 15 (0-50); Potassium 3.9 mmol/L (3.4-5.1); Sodium 140 mmol/L (137-145)
== END ==
PROVIDERS: PCP Family Medicine; Referring Provider Nurse Practitioner Family; Visit Provider Nurse Practitioner Family
DX: I48.0 Paroxysmal atrial fibrillation (principal)
CPT/HCPCS: 36415; 80048; 85025